=== PATIENT | female | born 1935 | race Caucasian/White ===

== ENCOUNTER 2018-03-10 20:06 | Inpatient (IN) | payer MEDICARE, BC ==
[2018-03-10] MEDS ORDERED: ONDANSETRON 4 MG/2 ML VIAL IVP STA (20:49)
[2018-03-10] MEDS ORDERED: SODIUM CHLORIDE 0.9% 1,000 ML IV STA (20:49)
--- NOTE | 2018-03-10 20:52 | ED ---
Nausea/Vomiting/Diarrhea HPI - General Chief complaint: Nausea/Vomiting/Diarrhea Stated complaint: Vomiting Time Seen by Provider: 03/10/18 20:18 Source: patient, family Mode of arrival: wheelchair Limitations: no limitations - History of Present Illness Initial comments: Patient is an 82-year-old female presenting for dysuria and fever. The patient states that for the last couple days, she had been having dysuria and fever and she went and saw her ECP who started her on Macrobid yesterday. She was able to take 2 doses but vomited after one of doses. She denies any significant abdominal pain as well as chest pain or shortness of breath but they decided to come in after she was so fatigued that she could not get off the couch. - Related Data Home Medications Medication Instructions Recorded Confirmed Metoprolol Tartrate [Lopressor] 50 mg PO BID 10/03/13 05/05/17 Omeprazole [PriLOSEC] 40 mg PO AC-BRKFST 10/03/13 05/05/17 amLODIPine [Norvasc] 10 mg PO DAILY 10/03/13 05/05/17 Atorvastatin [Lipitor] 10 mg PO HS 11/20/14 05/05/17 Melatonin 5 mg PO HS 11/20/14 05/05/17 Timolol 0.5% Ophth Soln [Timoptic] 1 drop BOTH EYES BID 11/20/14 05/05/17 Vit C/E/Zn/Coppr/Lutein/Zeaxan 2 tab PO DAILY 11/20/14 05/05/17 [Preservision Areds 2 Softgel] Omalizumab [Xolair] 150 mg SQ QMONTH 06/11/15 05/05/17 Loratadine [Claritin] 10 mg PO DAILY 08/06/15 05/05/17 Acetaminophen/Diphenhydramine 2 tab PO HS 01/07/16 05/05/17 [Tylenol PM 500-25mg] Allergies Allergy/AdvReac Type Severity Reaction Status Date / Time LOKESH Inhibitors Allergy Rash/Hives Verified 03/10/18 20:16 aspirin Allergy Rash/Hives Verified 03/10/18 20:16 NSAIDS (Non-Steroidal Allergy Rash/Hives Verified 03/10/18 20:16 Anti-Inflamma Sulfa (Sulfonamide Allergy Unknown Verified 03/10/18 20:16 Antibiotics) Childhood Review of Systems ROS Statement: Those systems with pertinent positive or pertinent negative responses have been documented in the HPI. Constitutional: Positive for chills, fatigue and fever. HENT: Negative for congestion. Respiratory: Negative for chest tightness, shortness of breath and wheezing. Negative for cough Cardiovascular: Negative for chest pain and palpitations. Gastrointestinal: Negative for abdominal pain. Negative for abdominal distention , diarrhea, nausea and vomiting. Genitourinary: Positive for dysuria. Musculoskeletal: Negative for back pain, neck pain and neck stiffness. Skin: Negative for color change. Neurological: Negative for dizziness, speech difficulty, weakness and light- headedness. Psychiatric/Behavioral: Negative for agitation and confusion. Negative for anxiety ROS Other: All systems not noted in ROS Statement are negative. Past Medical History Past Medical History: Eye Disorder, GERD/Reflux, Hypertension Additional Past Medical History / Comment(s): MACULAR,GLAUCOMA, UTI 03/09/18 History of Any Multi-Drug Resistant Organisms: None Reported Past Surgical History: Joint Replacement Additional Past Surgical History / Comment(s): TENDON RELEASE RIGHT HAND, OOPHORECTOMY, LEFT TOTAL KNEE, Past Anesthesia/Blood Transfusion Reactions: No Reported Reaction Past Psychological History: No Psychological Hx Reported Smoking Status: Never smoker Past Alcohol Use History: None Reported Past Drug Use History: None Reported - Past Family History Mother Family Medical History: Cancer Additional Family Medical History / Comment(s): COLON CANCER General Exam - General Exam Comments Initial Comments: Constitutional: Pt is oriented to person, place, and time. Pt appears well- developed and well-nourished. No distress. HENT: Head: Normocephalic and atraumatic. Eyes: EOM are normal. Neck: Normal range of motion. Neck supple. Cardiovascular: Normal rate, regular rhythm, S1 normal, S2 normal and normal heart sounds. Exam reveals no gallop and no friction rub. No murmur heard. Pulmonary/Chest: Effort normal and breath sounds normal. No tachypnea and no bradypnea. No respiratory distress. No wheezes or rales noted. Abdominal: Soft. Bowel sounds are normal. Pt exhibits no shifting dullness, no distension, no pulsatile liver, no fluid wave, no abdominal bruit and no ascites. There is no tenderness. There is no rigidity, no rebound, no guarding, no tenderness at McBurney's point and negative Jimenes's sign. Musculoskeletal: Normal range of motion. Neurological: Pt is alert and oriented to person, place, and time. No cranial nerve deficit. Skin: Skin is warm and dry. No rash noted. Pt is not diaphoretic. No erythema. No pallor. Psychiatric: Pt has a normal mood and affect. Pt behavior is normal. Thought content normal. Limitations: no limitations Course Vital Signs 03/10/18 03/10/18 20:12 20:29 Temperature 99 F 100.6 F H Pulse Rate 98 Respiratory 20 Rate Blood Pressure 131/77 O2 Sat by Pulse 99 Oximetry Medical Decision Making - Medical Decision Making Laboratory studies showed that there was leukocytosis of 13.9 and lactic acid was elevated at 3.7. There is no elevation in troponin and EKG showed no findings concerning of ACS. However, there is severe concern about letting the patient home and it is thought that she is not a good candidate for outpatient treatment. Urinalysis was obtained and showed continued evidence of urinary tract infection and therefore she was given Rocephin.. Patient was also given fluids but 30 mL per KG bolus was not administered as the patient had an elevated BNP of 1800.Explained all labs and diagnostic test results and that we will admit patient to hospital. Pt is agreeable to plan and case has been discussed with mid-level provider, Constantin,and they agree to accept the pt. - Lab Data Result diagrams: 03/10/18 20:35 03/10/18 20:35 Lab Results 03/10/18 03/10/18 03/10/18 Range/Units 20:35 20:35 20:35 WBC (3.8-10.6) k/uL RBC (3.80-5.40) m/uL Hgb (11.4-16.0) gm/dL Hct (34.0-46.0) % MCV (80.0-100.0) fL MCH (25.0-35.0) pg MCHC (31.0-37.0) g/dL RDW (11.5-15.5) % Plt Count (150-450) k/uL Neutrophils % % Lymphocytes % % Monocytes % % Eosinophils % % Basophils % % Neutrophils # (1.3-7.7) k/uL Lymphocytes # (1.0-4.8) k/uL Monocytes # (0-1.0) k/uL Eosinophils # (0-0.7) k/uL Basophils # (0-0.2) k/uL Sodium 139 (137-145) mmol/L Potassium 3.5 (3.5-5.1) mmol/L Chloride 101 (98-107) mmol/L Carbon Dioxide 23 (22-30) mmol/L Anion Gap 15 mmol/L BUN 19 H (7-17) mg/dL Creatinine 0.81 (0.52-1.04) mg/dL Est GFR (CKD-EPI)AfAm 78 (>60 ml/min/1.73 sqM) Est GFR (CKD-EPI)NonAf 67 (>60 ml/min/1.73 sqM) Glucose 168 H (74-99) mg/dL Plasma Lactic Acid [place] 3.7 H* (0.7-2.0) mmol/L Calcium 9.6 (8.4-10.2) mg/dL Magnesium 1.6 (1.6-2.3) mg/dL Total Bilirubin 1.4 H (0.2-1.3) mg/dL AST 43 H (14-36) U/L ALT 28 (9-52) U/L Alkaline Phosphatase 162 H (38-126) U/L NT-Pro-B Natriuret Pep 1800 pg/mL Total Protein 8.0 (6.3-8.2) g/dL Albumin 4.5 (3.5-5.0) g/dL Lipase 25 (23-300) U/L Urine Color Urine Appearance (Clear) Urine pH (5.0-8.0) Ur Specific [place] (1.001-1.035) Urine Protein (Negative) Urine Glucose (UA) (Negative) Urine Ketones (Negative) Urine Blood (Negative) Urine Nitrite (Negative) Urine Bilirubin (Negative) Urine Urobilinogen (<2.0) mg/dL Ur Leukocyte Esterase (Negative) Urine RBC (0-5) /hpf Urine WBC (0-5) /hpf Ur Squamous Epith Cells (0-4) /hpf Urine Bacteria (None) /hpf Hyaline Casts (0-2) /lpf Urine Mucus (None) /hpf 03/10/18 03/10/18 Range/Units 20:35 21:35 WBC 13.9 H (3.8-10.6) k/uL RBC 5.02 (3.80-5.40) m/uL Hgb 15.2 (11.4-16.0) gm/dL Hct 45.7 (34.0-46.0) % MCV 90.9 (80.0-100.0) fL MCH 30.2 (25.0-35.0) pg MCHC 33.2 (31.0-37.0) g/dL RDW 13.8 (11.5-15.5) % Plt Count 243 (150-450) k/uL Neutrophils % 90 % Lymphocytes % 5 % Monocytes % 4 % Eosinophils % 0 % Basophils % 0 % Neutrophils # 12.5 H (1.3-7.7) k/uL Lymphocytes # 0.8 L (1.0-4.8) k/uL Monocytes # 0.5 (0-1.0) k/uL Eosinophils # 0.0 (0-0.7) k/uL Basophils # 0.0 (0-0.2) k/uL Sodium (137-145) mmol/L Potassium (3.5-5.1) mmol/L Chloride (98-107) mmol/L Carbon Dioxide (22-30) mmol/L Anion Gap mmol/L BUN (7-17) mg/dL Creatinine (0.52-1.04) mg/dL Est GFR (CKD-EPI)AfAm (>60 ml/min/1.73 sqM) Est GFR (CKD-EPI)NonAf (>60 ml/min/1.73 sqM) Glucose (74-99) mg/dL Plasma Lactic Acid [place] (0.7-2.0) mmol/L Calcium (8.4-10.2) mg/dL Magnesium (1.6-2.3) mg/dL Total Bilirubin (0.2-1.3) mg/dL AST (14-36) U/L ALT (9-52) U/L Alkaline Phosphatase (38-126) U/L NT-Pro-B Natriuret Pep pg/mL Total Protein (6.3-8.2) g/dL Albumin (3.5-5.0) g/dL Lipase (23-300) U/L Urine Color Yellow Urine Appearance Cloudy H (Clear) Urine pH 5.5 (5.0-8.0) Ur Specific [place] 1.014 (1.001-1.035) Urine Protein 1+ H (Negative) Urine Glucose (UA) Negative (Negative) Urine Ketones Trace H (Negative) Urine Blood Small H (Negative) Urine Nitrite Negative (Negative) Urine Bilirubin Negative (Negative) Urine Urobilinogen <2.0 (<2.0) mg/dL Ur Leukocyte Esterase Moderate H (Negative) Urine RBC 5 (0-5) /hpf Urine WBC 37 H (0-5) /hpf Ur Squamous Epith Cells 2 (0-4) /hpf Urine Bacteria Rare H (None) /hpf Hyaline Casts 13 H (0-2) /lpf Urine Mucus Few H (None) /hpf Disposition Clinical Impression: Sepsis, UTI (urinary tract infection) Disposition: ADMITTED IP TO THIS [facility] Condition: Fair Referrals: Yanelis Díaz MD [Primary Care Provider] - 1-2 days Decision to Admit Reason: Admit from EC Decision Date: 03/10/18 Decision Time: 22:36
[2018-03-10 21:15] LABS: Basophils % (A) 0 %; Eosinophils % (A) 0 %; HCT 45.7 % (34.0-46.0); HGB 15.2 gm/dL (11.4-16.0); Lymphocytes # (A) 0.8 k/uL (1.0-4.8); Lymphocytes % (A) 5 %; MCH 30.2 pg (25.0-35.0); MCHC 33.2 g/dL (31.0-37.0); MCV 90.9 fL (80.0-100.0); Mean Platelet Volume 7.8; Monocytes # (A) 0.5 k/uL (0-1.0); Monocytes % (A) 4 %; Neutrophils # (A) 12.5 k/uL (1.3-7.7); Neutrophils % (A) 90 %; Platelet Count 243 k/uL (150-450); RBC 5.02 m/uL (3.80-5.40); RDW 13.8 % (11.5-15.5); WBC 13.9 k/uL (3.8-10.6)
[2018-03-10 21:24] LABS: Albumin 4.5 g/dL (3.5-5.0); Calcium 9.6 mg/dL (8.4-10.2); Magnesium 1.6 mg/dL (1.6-2.3); Potassium 3.5 mmol/L (3.5-5.1); Total Bilirubin 1.4 mg/dL (0.2-1.3)
[2018-03-10] MEDS ORDERED: ACETAMINOPHEN TAB 500 MG TAB PO STA (22:21)
[2018-03-10 22:23] LABS: Appearance,Urine Cloudy (Clear); Bacteria,Urine Rare /hpf; Bilirubin,Urine Negative (Negative); Blood,Urine Small (Negative); Color,Urine Yellow; Glucose,Urine (UA) Negative (Negative); Hyaline Casts,Urine 13 /lpf (0-2); Ketones,Urine Trace (Negative); Leukocyte Esterase,Urine Moderate (Negative); Mucus,Urine Few /hpf; Nitrite,Urine Negative (Negative); PH, Urine 5.5 (5.0-8.0); Protein,Urine 1+ (Negative); RBC,Urine 5 /hpf (0-5); Specific Gravity,Urine 1.014 (1.001-1.035); Squamous Epithelial Cell,Urine 2 /hpf (0-4); Urobilinogen,Urine <2.0 mg/dL (<2.0); WBC,Urine 37 /hpf (0-5)
[2018-03-10] MEDS ORDERED: NALOXONE 0.4 MG/ML 1 ML VIAL IV PRN (22:30)
[2018-03-10] MEDS ORDERED: ACETAMINOPHEN TAB 325 MG TAB PO PRN (22:30)
--- NOTE | 2018-03-10 22:37 | XR ---
EXAMINATION TYPE: XR chest 2V DATE OF EXAM: 03/10/2018 COMPARISON: 07/26/2010 HISTORY: Lethargy. Vomiting TECHNIQUE: Frontal and lateral views of the chest are obtained. FINDINGS: Heart is normal. Thoracic aorta is atheromatous. There is no heart failure. There is osteo penia with 20% anterior wedging of mid thoracic vertebra. There is no pleural effusion. There are sma ll linear density in the periphery left midlung. IMPRESSION: Subsegmental atelectasis in the left lung is improved compared to old exam. No heart sarah lure. Old thoracic compression fracture.
[2018-03-10 23:58] VITALS: BMI 27.0
[2018-03-11] MEDS: SODIUM CHLORIDE 0.9% 1,000 ML IV SCH (06:35)
[2018-03-11] MEDS: PANTOPRAZOLE 40 MG TABLET PO SCH (08:23)
[2018-03-11] MEDS: METOPROLOL TARTRATE 50 MG TAB PO SCH ×2 (08:23→20:38)
[2018-03-11] MEDS: TIMOLOL 0.5% OPHTH DROPS 5 ML BTL BOTH EYES SCH ×2 (08:29→20:37)
--- NOTE | 2018-03-11 16:34 | P.HPIM ---
History of Present Illness H&P Date: 03/11/18 Chief Complaint: Dysuria and fever Ms. Nuñez is an 82-year-old female with a past medical history of hypertension, GERD, hyperlipidemia coming into the hospital with a chief complaint of increased urination and burning sensation while urinating for the past couple of days. Patient also reports subjective fevers with chills. States that she went to see her primary care physician who started her on Macrobid yesterday. Patient states that she to couple of doses but threw up after that. Patient insurance that she has been having diarrhea for the past 2 weeks on and off that resolved 2 days prior to starting of her dysuria symptoms. Patient was also having generalized weakness feeling tired and not able to get off of her bed for the past day and so came into the hospital for further evaluation. Patient denies having any chest pain, cough, difficulty in breathing. No abdominal pain nausea vomiting or diarrhea. Patient denies having any headaches , neck pain, no blurring of vision. No loss of consciousness or seizure-like activity. No focal weakness reported. In the ER patient was found to be septic with the urine positive for leukocyte esterase. She has been started on ceftriaxone and admitted for further management. Review of Systems REVIEW OF SYSTEMS: CONSTITUTIONAL-patient complains of generalized weakness and fatigue PSYCH: No anxiety or depression NEURO:No c/o weakness of the extremties, No facial droop, No speech abnormalities. VASCULAR: Peripheral nervous system within the normal limits no edema HEMATOLOGIC: No history of easy bleeding and bruising . No recent infections . RESPIRATORY: No cough, No SOB, No chest discomfort. IMMUNE: No infections INTEGUMENT: no rashes OPHTHALMOLOGIC: No blurry vision and no eye discharge : As per HPI CONFERENCE SERVICE COORDINATOR: No bleeding PV CARDIAC: No chest pain , shortness of breath , paroxysmal nocturnal dyspnea MUSCULOSKELETAL : No Aches or pains in the joints or muscles. GI: No abdominal pain, Nausea or vomiting. No constipation or diarrhea. All 13 review of systems are negative except for the ones mentioned above Past Medical History Past Medical History: Eye Disorder, GERD/Reflux, Hypertension Additional Past Medical History / Comment(s): MACULAR,GLAUCOMA, UTI 03/09/18 History of Any Multi-Drug Resistant Organisms: None Reported Past Surgical History: Joint Replacement Additional Past Surgical History / Comment(s): TENDON RELEASE RIGHT HAND, OOPHORECTOMY, LEFT TOTAL KNEE, Past Anesthesia/Blood Transfusion Reactions: No Reported Reaction Past Psychological History: No Psychological Hx Reported Smoking Status: Never smoker Past Alcohol Use History: None Reported Past Drug Use History: None Reported - Past Family History Mother Family Medical History: Cancer Additional Family Medical History / Comment(s): COLON CANCER Medications and Allergies Home Medications Medication Instructions Recorded Confirmed Type Metoprolol Tartrate [Lopressor] 50 mg PO BID 10/03/13 03/11/18 History Omeprazole [PriLOSEC] 40 mg PO AC-BRKFST 10/03/13 03/11/18 History amLODIPine [Norvasc] 10 mg PO DAILY 10/03/13 03/11/18 History Atorvastatin [Lipitor] 10 mg PO HS 11/20/14 03/11/18 History Timolol 0.5% Ophth Soln [Timoptic] 1 drop BOTH EYES BID 11/20/14 03/11/18 History Vit C/E/Zn/Coppr/Lutein/Zeaxan 1 tab PO BID 11/20/14 03/11/18 History [Preservision Areds 2 Softgel] Diphenox-Atrop 2.5-0.025 mg 1 tab PO BID PRN 03/11/18 03/11/18 History [Lomotil] Nitrofurantoin Monohyd/M-Cryst 100 mg PO Q12HR 03/11/18 03/11/18 History [Macrobid] Allergies Allergy/AdvReac Type Severity Reaction Status Date / Time LOKESH Inhibitors Allergy Rash/Hives Verified 03/11/18 10:53 aspirin Allergy Rash/Hives Verified 03/11/18 10:53 NSAIDS (Non-Steroidal Allergy Rash/Hives Verified 03/11/18 10:53 Anti-Inflamma Sulfa (Sulfonamide Allergy Unknown Verified 03/11/18 10:53 Antibiotics) Childhood tree nut [Nut] Allergy Unknown Verified 03/11/18 10:53 Physical Exam Vitals: Vital Signs Temp Pulse Pulse Resp BP BP Pulse Ox 03/11/18 08:00 18 03/11/18 05:56 97.3 F L 70 16 127/70 95 03/10/18 23:43 98.7 F 79 17 148/77 94 L 03/10/18 22:39 83 18 117/56 95 03/10/18 22:28 101.6 F H 03/10/18 20:29 100.6 F H 03/10/18 20:12 99 F 98 20 131/77 99 Intake and Output 03/10/18 03/11/18 03/11/18 22:59 06:59 14:59 Other: Voiding Method Toilet Toilet # Voids 1 Weight 67.132 kg 67 kg GEN. APPEARANCE: alert, in no apparent distress HEAD EXAM: atraumatic, normocephalic, normal inspection EYE EXAM: No pallor or icterus ENT EXAM: normal exam, mucous membranes moist NECK EXAM: normal inspection. Absent: tenderness, meningismus, full ROM, lymphadenopathy RESPIRATORY EXAM: normal lung sounds bilaterally. Absent: respiratory distress , wheezes, rales, rhonchi, stridor CARDIOVASCULAR EXAM: regular rate, normal rhythm, normal heart sounds. Absent : systolic murmur, diastolic murmur, rubs, gallop, clicks GI/ABDOMINAL EXAM: Abdomen is soft. Positive for tenderness in the suprapubic area. No CVA tenderness. EXTREMITIES EXAM: normal inspection, full ROM, normal capillary refill. Absent : tenderness, pedal edema, joint swelling, calf tenderness NEUROLOGICAL EXAM: alert, oriented X3, no focal neurological deficits PSYCHIATRIC EXAM: normal affect, normal mood SKIN EXAM: warm, dry, intact, normal color. Absent: rash Results CBC & Chem 7: 03/10/18 20:35 03/10/18 20:35 Labs: Abnormal Lab Results - Last 24 Hours (Table) 03/10/18 03/10/18 03/10/18 Range/Units 20:35 20:35 20:35 WBC 13.9 H (3.8-10.6) k/uL Neutrophils # 12.5 H (1.3-7.7) k/uL Lymphocytes # 0.8 L (1.0-4.8) k/uL BUN 19 H (7-17) mg/dL Glucose 168 H (74-99) mg/dL Plasma Lactic Acid [place] 3.7 H* (0.7-2.0) mmol/L Total Bilirubin 1.4 H (0.2-1.3) mg/dL AST 43 H (14-36) U/L Alkaline Phosphatase 162 H (38-126) U/L Urine Appearance (Clear) Urine Protein (Negative) Urine Ketones (Negative) Urine Blood (Negative) Ur Leukocyte Esterase (Negative) Urine WBC (0-5) /hpf Urine Bacteria (None) /hpf Hyaline Casts (0-2) /lpf Urine Mucus (None) /hpf 03/10/18 03/11/18 Range/Units 21:35 01:19 WBC (3.8-10.6) k/uL Neutrophils # (1.3-7.7) k/uL Lymphocytes # (1.0-4.8) k/uL BUN (7-17) mg/dL Glucose (74-99) mg/dL Plasma Lactic Acid [place] 2.7 H* (0.7-2.0) mmol/L Total Bilirubin (0.2-1.3) mg/dL AST (14-36) U/L Alkaline Phosphatase (38-126) U/L Urine Appearance Cloudy H (Clear) Urine Protein 1+ H (Negative) Urine Ketones Trace H (Negative) Urine Blood Small H (Negative) Ur Leukocyte Esterase Moderate H (Negative) Urine WBC 37 H (0-5) /hpf Urine Bacteria Rare H (None) /hpf Hyaline Casts 13 H (0-2) /lpf Urine Mucus Few H (None) /hpf Microbiology - Last 24 Hours (Table) 03/10/18 21:35 Urine Culture - Preliminary Urine,Voided Thrombosis Risk Factor Assmnt - Choose All That Apply Any of the Below Risk Factors Present?: No Assessment and Plan Assessment: ASSESSMENT Sepsis secondary to UTI Hypertension Hyperlipidemia GERD Glaucoma Hypomagnesemia Plan: Continue the patient on ceftriaxone and IV fluids. Urine culture is pending currently. Patient has been resumed on her home medications. Further recommendations to follow depending on the progress of the patient.
[2018-03-11] MEDS: ATORVASTATIN 10 MG TAB PO SCH (20:38)
[2018-03-11] MEDS ORDERED: CALCIUM CARBONATE 500 MG CHEWABLE PO PRN (20:47)
[2018-03-12] MEDS: SODIUM CHLORIDE 0.9% 1,000 ML IV SCH (04:29)
[2018-03-12] MEDS: PANTOPRAZOLE 40 MG TABLET PO SCH (08:17)
[2018-03-12] MEDS: TIMOLOL 0.5% OPHTH DROPS 5 ML BTL BOTH EYES SCH ×2 (08:17→21:43)
[2018-03-12] MEDS: METOPROLOL TARTRATE 50 MG TAB PO SCH ×2 (08:17→21:44)
[2018-03-12 09:24] LABS: Basophils % (A) 0 %; Eosinophils # (A) 0.1 k/uL (0-0.7); Eosinophils % (A) 1 %; HCT 38.5 % (34.0-46.0); HGB 12.8 gm/dL (11.4-16.0); Lymphocytes # (A) 1.2 k/uL (1.0-4.8); Lymphocytes % (A) 17 %; MCH 30.8 pg (25.0-35.0); MCHC 33.3 g/dL (31.0-37.0); MCV 92.5 fL (80.0-100.0); Mean Platelet Volume 7.7; Monocytes # (A) 0.4 k/uL (0-1.0); Monocytes % (A) 6 %; Neutrophils # (A) 5.4 k/uL (1.3-7.7); Neutrophils % (A) 75 %; Platelet Count 176 k/uL (150-450); RBC 4.16 m/uL (3.80-5.40); WBC 7.2 k/uL (3.8-10.6)
[2018-03-12 09:41] LABS: Anion Gap 8 mmol/L; Blood Urea Nitrogen 13 mg/dL (7-17); Calcium 8.9 mg/dL (8.4-10.2); Carbon Dioxide 26 mmol/L (22-30); Chloride 110 mmol/L (98-107); Glucose 104 mg/dL (74-99); Potassium 3.2 mmol/L (3.5-5.1); Sodium 144 mmol/L (137-145)
[2018-03-12] MEDS ORDERED: Potassium Replacement Protocol 1 EACH MISC MISCELLANE PRN (12:02)
[2018-03-12] MEDS: POTASSIUM CHLORIDE ER 20 MEQ TAB.ER PO SCH ×4 (12:59→21:44)
--- NOTE | 2018-03-12 16:28 | P.PN ---
Subjective Progress Note Date: 03/12/18 Principal diagnosis: Sepsis Ms. Nuñez is an 82-year-old female with a past medical history of hypertension, GERD, hyperlipidemia coming into the hospital with a chief complaint of increased urination and burning sensation while urinating for the past couple of days. Patient also reports subjective fevers with chills. States that she went to see her primary care physician who started her on Macrobid yesterday. Patient states that she to couple of doses but threw up after that. Patient insurance that she has been having diarrhea for the past 2 weeks on and off that resolved 2 days prior to starting of her dysuria symptoms. Patient was also having generalized weakness feeling tired and not able to get off of her bed for the past day and so came into the hospital for further evaluation. In the ER patient was found to be septic with the urine positive for leukocyte esterase. She has been started on ceftriaxone and admitted for further management. Today patient is lying in bed appears to be in acute distress. The patient complains of generalized weakness and fatigue. She also complains of increased shortness of breath, with cough since yesterday. She still has loose bowel movements. Patient had a fever of 100.4 last night. Patient denies having any chest pain or palpitations. She denies having any nausea or vomiting and has been eating and drinking okay. Medications have been reviewed. Objective - Vital Signs Vital signs: Vital Signs Temp 98.2 F 03/12/18 15:00 Pulse 73 03/12/18 15:00 Resp 18 03/12/18 15:00 BP 162/84 03/12/18 15:00 Pulse Ox 90 L 03/12/18 15:00 Intake & Output 03/11/18 03/12/18 03/12/18 18:59 06:59 18:59 Intake Total 1200 Output Total 300 Balance 1200 -300 Intake: Oral 1200 Output: Urine 300 Other: Voiding Method Toilet Toilet Toilet Bedside Commode # Voids 2 3 2 # Bowel Movements 2 1 - Exam GEN. APPEARANCE: alert, in no apparent distress HEAD EXAM: atraumatic, normocephalic, normal inspection EYE EXAM: No pallor or icterus ENT EXAM: normal exam, mucous membranes moist NECK EXAM: normal inspection. Absent: tenderness, meningismus, full ROM, lymphadenopathy RESPIRATORY EXAM: Positive bilateral breath sounds. No crackles or wheezes. CARDIOVASCULAR EXAM: regular rate, normal rhythm, normal heart sounds. Absent : systolic murmur, diastolic murmur, rubs, gallop, clicks GI/ABDOMINAL EXAM: Abdomen is soft. Positive for tenderness in the suprapubic area. No CVA tenderness. EXTREMITIES EXAM: No peripheral edema. NEUROLOGICAL EXAM: alert, oriented X3, no focal neurological deficits PSYCHIATRIC EXAM: normal affect, normal mood SKIN EXAM: warm, dry, intact, normal color. Absent: rash - Labs CBC & Chem 7: 03/12/18 08:20 03/12/18 08:20 Labs: Abnormal Lab Results - Last 24 Hours (Table) 03/12/18 Range/Units 08:20 Potassium 3.2 L (3.5-5.1) mmol/L Chloride 110 H (98-107) mmol/L Glucose 104 H (74-99) mg/dL Microbiology - Last 24 Hours (Table) 03/10/18 21:35 Urine Culture - Final Urine,Voided 03/10/18 20:35 Blood Culture - Preliminary Blood No Growth after 24 hours Assessment and Plan Assessment: ASSESSMENT Sepsis secondary to UTI Hypertension Hyperlipidemia GERD Glaucoma Hypomagnesemia Hypokalemia Plan: Continue the patient on ceftriaxone. Her IV fluids have been discontinued. Urine culture is pending currently. Patient has been tested negative for C. diff. As the patient spiked a fever of 100.4 and is having mild difficulty in breathing with cough, will get a chest x-ray and blood cultures. Continue with DVT prophylaxis. Further recommendations to follow depending on the progress of the patient.
[2018-03-12] MEDS: ENOXAPARIN 40 MG/0.4 ML SYRINGE SQ SCH (18:21)
--- NOTE | 2018-03-12 19:21 | XR ---
EXAMINATION: XR chest 2V DATE AND TIME: 03/12/2018 6:26 PM CLINICAL INDICATION: shortness of breath TECHNIQUE: PA and lateral COMPARISON: 03/10/2018 FINDINGS: There is a fine reticular pattern of increased density throughout the lungs mildly silhouetting the p ulmonary vasculature. This is a subtle finding but new since the prior study. The lungs are otherwise clear. The pleural spaces are negative. The cardiac silhouette is not enlarged. 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 The skeletal structures and soft tissues are negative for acute findings. IMPRESSION: Mild interstitial phase pulmonary edema.
[2018-03-12] MEDS: ATORVASTATIN 10 MG TAB PO SCH (21:44)
[2018-03-13] MEDS: METOPROLOL TARTRATE 50 MG TAB PO SCH ×2 (08:09→21:35)
[2018-03-13] MEDS: ENOXAPARIN 40 MG/0.4 ML SYRINGE SQ SCH (08:09)
[2018-03-13] MEDS: PANTOPRAZOLE 40 MG TABLET PO SCH (08:09)
[2018-03-13] MEDS: TIMOLOL 0.5% OPHTH DROPS 5 ML BTL BOTH EYES SCH ×2 (08:10→21:35)
[2018-03-13 10:20] LABS: Anion Gap 9 mmol/L; Blood Urea Nitrogen 13 mg/dL (7-17); Calcium 9.3 mg/dL (8.4-10.2); Carbon Dioxide 28 mmol/L (22-30); Chloride 104 mmol/L (98-107); Glucose 109 mg/dL (74-99); Sodium 141 mmol/L (137-145)
[2018-03-13 10:31] LABS: Basophils % (A) 0 %; Eosinophils % (A) 0 %; HCT 36.3 % (34.0-46.0); HGB 12.2 gm/dL (11.4-16.0); Lymphocytes # (A) 1.6 k/uL (1.0-4.8); Lymphocytes % (A) 25 %; MCH 30.9 pg (25.0-35.0); MCHC 33.6 g/dL (31.0-37.0); Mean Platelet Volume 8.4; Monocytes # (A) 0.4 k/uL (0-1.0); Monocytes % (A) 7 %; Neutrophils # (A) 4.1 k/uL (1.3-7.7); Neutrophils % (A) 65 %; Platelet Count 194 k/uL (150-450); RBC 3.94 m/uL (3.80-5.40); WBC 6.4 k/uL (3.8-10.6)
[2018-03-13] MEDS: ATORVASTATIN 10 MG TAB PO SCH (21:35)
--- NOTE | 2018-03-13 22:19 | P.PN ---
Subjective Progress Note Date: 03/13/18 Principal diagnosis: Sepsis Ms. Nuñez is an 82-year-old female with a past medical history of hypertension, GERD, hyperlipidemia coming into the hospital with a chief complaint of increased urination and burning sensation while urinating for the past couple of days. Patient also reports subjective fevers with chills. States that she went to see her primary care physician who started her on Macrobid yesterday. Patient states that she to couple of doses but threw up after that. Patient insurance that she has been having diarrhea for the past 2 weeks on and off that resolved 2 days prior to starting of her dysuria symptoms. Patient was also having generalized weakness feeling tired and not able to get off of her bed for the past day and so came into the hospital for further evaluation. In the ER patient was found to be septic with the urine positive for leukocyte esterase. She has been started on ceftriaxone and admitted for further management. Today patient is lying in bed appears to be in acute distress. The patient complains of generalized weakness and fatigue. She also complains of increased shortness of breath, with cough since yesterday. She still has loose bowel movements. Patient had a fever of 100.4 last night. Patient denies having any chest pain or palpitations. She denies having any nausea or vomiting and has been eating and drinking okay. Medications have been reviewed. Objective - Vital Signs Vital signs: Vital Signs Temp 98 F 03/13/18 16:08 Pulse 70 03/13/18 16:08 Resp 18 03/13/18 16:08 BP 162/82 03/13/18 16:08 Pulse Ox 93 L 03/13/18 16:08 Intake & Output 03/12/18 03/13/18 03/13/18 18:59 06:59 18:59 Intake Total 300 240 Balance 300 240 Intake: Oral 300 240 Other: Voiding Method Toilet Toilet # Voids 2 1 1 # Bowel Movements 1 1 - Exam GEN. APPEARANCE: alert, in no apparent distress HEAD EXAM: atraumatic, normocephalic, normal inspection EYE EXAM: No pallor or icterus ENT EXAM: normal exam, mucous membranes moist NECK EXAM: normal inspection. Absent: tenderness, meningismus, full ROM, lymphadenopathy RESPIRATORY EXAM: Positive bilateral breath sounds. No crackles or wheezes. CARDIOVASCULAR EXAM: regular rate, normal rhythm, normal heart sounds. Absent : systolic murmur, diastolic murmur, rubs, gallop, clicks GI/ABDOMINAL EXAM: Abdomen is soft. Positive for tenderness in the suprapubic area. No CVA tenderness. EXTREMITIES EXAM: No peripheral edema. NEUROLOGICAL EXAM: alert, oriented X3, no focal neurological deficits PSYCHIATRIC EXAM: normal affect, normal mood SKIN EXAM: warm, dry, intact, normal color. Absent: rash - Labs CBC & Chem 7: 03/13/18 09:41 03/13/18 09:41 Labs: Abnormal Lab Results - Last 24 Hours (Table) 03/12/18 03/13/18 Range/Units 16:40 09:41 Potassium 3.4 L (3.5-5.1) mmol/L Glucose 109 H (74-99) mg/dL Microbiology - Last 24 Hours (Table) 03/10/18 20:35 Blood Culture - Preliminary Blood No Growth after 48 hours Assessment and Plan Assessment: ASSESSMENT Sepsis secondary to UTI Hypertension Hyperlipidemia GERD Glaucoma Hypomagnesemia Hypokalemia Plan: Continue the patient on ceftriaxone. Urine culture is pending currently. Patient has been tested negative for C. diff. Continue with DVT prophylaxis. Further recommendations based on the clinical course.
[2018-03-14 07:11] VITALS: BP 143/77; PULSE 54; RESP 18; TEMP 98.2
[2018-03-14] MEDS: TIMOLOL 0.5% OPHTH DROPS 5 ML BTL BOTH EYES SCH (08:00)
[2018-03-14] MEDS: METOPROLOL TARTRATE 50 MG TAB PO SCH (08:00)
[2018-03-14] MEDS: PANTOPRAZOLE 40 MG TABLET PO SCH (08:00)
[2018-03-14] MEDS: ENOXAPARIN 40 MG/0.4 ML SYRINGE SQ SCH (08:00)
== END 2018-03-14 14:31 | disposition home health service (06) | DRG 872 ==
LOC: EC 20:06 → 4MS4W 22:30
PROVIDERS: ADMIT Internal Medicine; ATTEND Internal Medicine
DX: A41.9 Sepsis, unspecified organism (principal); N39.0 Urinary tract infection, site not specified; E78.5 Hyperlipidemia, unspecified; E83.42 Hypomagnesemia; E87.6 Hypokalemia; H40.89 Other specified glaucoma; I10 Essential (primary) hypertension; K21.9 Gastro-esophageal reflux disease without esophagitis; Z80.0 Family history of malignant neoplasm of digestive organs; Z88.2 Allergy status to sulfonamides; Z88.8 Allergy status to other drugs, medicaments and biological substances; Z87.440 Personal history of urinary (tract) infections; Z88.6 Allergy status to analgesic agent; Z91.018 Allergy to other foods; Z96.652 Presence of left artificial knee joint; R19.7 Diarrhea, unspecified; Z90.721 Acquired absence of ovaries, unilateral; Z79.899 Other long term (current) drug therapy
CPT/HCPCS: 36415; 71046; 80048; 80053; 81001; 83605; 83690; 83735; 83880; 84132; 85025; 87040; 87086; 87324; 93005; 96361; 96374; 96375; 99285

== ENCOUNTER 2018-11-01 12:21 | Emergency (ER) | payer MEDICARE, BC ==
[2018-11-01 12:39] VITALS: RESP 18
[2018-11-01] MEDS ORDERED: SODIUM CHLORIDE 0.9% 1,000 ML IV STA (12:42)
[2018-11-01 13:43] LABS: Basophils % (A) 0 %; Eosinophils % (A) 0 %; HCT 41.7 % (34.0-46.0); HGB 13.8 gm/dL (11.4-16.0); Lymphocytes # (A) 2.6 k/uL (1.0-4.8); Lymphocytes % (A) 29 %; MCH 29.5 pg (25.0-35.0); MCHC 33.1 g/dL (31.0-37.0); Mean Platelet Volume 7.8; Monocytes # (A) 0.6 k/uL (0-1.0); Monocytes % (A) 7 %; Neutrophils # (A) 5.6 k/uL (1.3-7.7); Neutrophils % (A) 62 %; Platelet Count 259 k/uL (150-450); RBC 4.69 m/uL (3.80-5.40); RDW 14.4 % (11.5-15.5); WBC 8.9 k/uL (3.8-10.6)
[2018-11-01 13:51] LABS: Albumin 4.6 g/dL (3.5-5.0); Calcium 10.1 mg/dL (8.4-10.2); Potassium 4.1 mmol/L (3.5-5.1); Total Bilirubin 0.8 mg/dL (0.2-1.3); Total Protein 7.8 g/dL (6.3-8.2)
--- NOTE | 2018-11-01 14:10 | ED ---
General Adult HPI - General Chief complaint: Urogenital Stated complaint: UTI Time Seen by Provider: 11/01/18 12:41 Source: patient, RN notes reviewed Mode of arrival: wheelchair Limitations: no limitations - History of Present Illness Initial comments: 82-year-old female presented emergency Department with chief complaint urinary tract infection. Patient was placed on Levaquin yesterday for urinary tract infection by PCP. Patient states that associate urine tract infection she was septic. Patient is concerned along with her daughter about her health condition. Patient has no complaints of fevers, chills, nausea, vomiting, diarrhea, chest pain, shortness breath. She has no complaints of weakness. Patient does have some symptoms of dysuria. - Related Data Home Medications Medication Instructions Recorded Confirmed Omeprazole [PriLOSEC] 40 mg PO AC-BRKFST 10/03/13 03/11/18 amLODIPine [Norvasc] 10 mg PO DAILY 10/03/13 03/11/18 Atorvastatin [Lipitor] 10 mg PO HS 11/20/14 03/11/18 Timolol 0.5% Ophth Soln [Timoptic 1 drop BOTH EYES BID 11/20/14 03/11/18 0.5% Ophth Soln] Vit C/E/Zn/Coppr/Lutein/Zeaxan 1 tab PO BID 11/20/14 03/11/18 [Preservision Areds 2 Softgel] Diphenox-Atrop 2.5-0.025 mg 1 tab PO BID PRN 03/11/18 03/11/18 [Lomotil] Previous Rx's Medication Instructions Recorded Cefuroxime Axetil [Ceftin] 500 mg PO BID 4 Days #8 tab 03/14/18 Metoprolol Tartrate [Lopressor] 25 mg PO BID #0 03/14/18 Allergies Allergy/AdvReac Type Severity Reaction Status Date / Time LOKESH Inhibitors Allergy Rash/Hives Verified 11/01/18 12:39 aspirin Allergy Rash/Hives Verified 11/01/18 12:39 NSAIDS (Non-Steroidal Allergy Rash/Hives Verified 11/01/18 12:39 Anti-Inflamma Sulfa (Sulfonamide Allergy Unknown Verified 11/01/18 12:39 Antibiotics) Childhood tree nut [Nut] Allergy Unknown Verified 11/01/18 12:39 Review of Systems ROS Statement: Those systems with pertinent positive or pertinent negative responses have been documented in the HPI. ROS Other: All systems not noted in ROS Statement are negative. Past Medical History Past Medical History: Eye Disorder, GERD/Reflux, Hypertension Additional Past Medical History / Comment(s): MACULAR,GLAUCOMA, UTI 03/09/18, leaky heart valve History of Any Multi-Drug Resistant Organisms: None Reported Past Surgical History: Joint Replacement Additional Past Surgical History / Comment(s): TENDON RELEASE RIGHT HAND, OOPHORECTOMY, LEFT TOTAL KNEE, Past Anesthesia/Blood Transfusion Reactions: No Reported Reaction Past Psychological History: No Psychological Hx Reported Smoking Status: Never smoker Past Alcohol Use History: None Reported Past Drug Use History: None Reported - Past Family History Mother Family Medical History: Cancer Additional Family Medical History / Comment(s): COLON CANCER General Exam Limitations: no limitations General appearance: alert, in no apparent distress Head exam: Present: atraumatic, normocephalic, normal inspection Neck exam: Present: normal inspection. Absent: tenderness, meningismus, lymphadenopathy Respiratory exam: Present: normal lung sounds bilaterally. Absent: respiratory distress, wheezes, rales, rhonchi, stridor Cardiovascular Exam: Present: regular rate, normal rhythm, normal heart sounds. Absent: systolic murmur, diastolic murmur, rubs, gallop, clicks GI/Abdominal exam: Present: soft, normal bowel sounds. Absent: distended, tenderness, guarding, rebound, rigid Back exam: Absent: CVA tenderness (R), CVA tenderness (L) Neurological exam: Present: alert, oriented X3, CN II-XII intact Skin exam: Present: warm, dry, intact, normal color. Absent: rash Course Vital Signs 11/01/18 11/01/18 12:36 13:39 Temperature 98.1 F Pulse Rate 80 71 Respiratory 18 18 Rate Blood Pressure 140/81 138/80 O2 Sat by Pulse 96 96 Oximetry Medical Decision Making - Medical Decision Making 82-year-old female presented for a UTI, concern for sepsis. Laboratory unremarkable. Patient has minimal white cells in her urinalysis this may be improved from prior urinalysis due to antibiotics. Patient is stable for discharge vitals are unremarkable. Return parameters were discussed. - Lab Data Result diagrams: 11/01/18 13:26 11/01/18 13:26 Lab Results 11/01/18 11/01/18 11/01/18 Range/Units 13:26 13:26 13:26 WBC 8.9 (3.8-10.6) k/uL RBC 4.69 (3.80-5.40) m/uL Hgb 13.8 (11.4-16.0) gm/dL Hct 41.7 (34.0-46.0) % MCV 89.0 (80.0-100.0) fL MCH 29.5 (25.0-35.0) pg MCHC 33.1 (31.0-37.0) g/dL RDW 14.4 (11.5-15.5) % Plt Count 259 (150-450) k/uL Neutrophils % 62 % Lymphocytes % 29 % Monocytes % 7 % Eosinophils % 0 % Basophils % 0 % Neutrophils # 5.6 (1.3-7.7) k/uL Lymphocytes # 2.6 (1.0-4.8) k/uL Monocytes # 0.6 (0-1.0) k/uL Eosinophils # 0.0 (0-0.7) k/uL Basophils # 0.0 (0-0.2) k/uL Sodium 141 (137-145) mmol/L Potassium 4.1 (3.5-5.1) mmol/L Chloride 105 (98-107) mmol/L Carbon Dioxide 26 (22-30) mmol/L Anion Gap 10 mmol/L BUN 21 H (7-17) mg/dL Creatinine 0.83 (0.52-1.04) mg/dL Est GFR (CKD-EPI)AfAm 75 (>60 ml/min/1.73 sqM) Est GFR (CKD-EPI)NonAf 65 (>60 ml/min/1.73 sqM) Glucose 98 (74-99) mg/dL Plasma Lactic Acid [place] 1.2 (0.7-2.0) mmol/L Calcium 10.1 (8.4-10.2) mg/dL Total Bilirubin 0.8 (0.2-1.3) mg/dL AST 26 (14-36) U/L ALT 13 (9-52) U/L Alkaline Phosphatase 140 H (38-126) U/L Total Protein 7.8 (6.3-8.2) g/dL Albumin 4.6 (3.5-5.0) g/dL Urine Color Urine Appearance (Clear) Urine pH (5.0-8.0) Ur Specific [place] (1.001-1.035) Urine Protein (Negative) Urine Glucose (UA) (Negative) Urine Ketones (Negative) Urine Blood (Negative) Urine Nitrite (Negative) Urine Bilirubin (Negative) Urine Urobilinogen (<2.0) mg/dL Ur Leukocyte Esterase (Negative) Urine WBC (0-5) /hpf Ur Squamous Epith Cells (0-4) /hpf Urine Mucus (None) /hpf 11/01/18 Range/Units 13:44 WBC (3.8-10.6) k/uL RBC (3.80-5.40) m/uL Hgb (11.4-16.0) gm/dL Hct (34.0-46.0) % MCV (80.0-100.0) fL MCH (25.0-35.0) pg MCHC (31.0-37.0) g/dL RDW (11.5-15.5) % Plt Count (150-450) k/uL Neutrophils % % Lymphocytes % % Monocytes % % Eosinophils % % Basophils % % Neutrophils # (1.3-7.7) k/uL Lymphocytes # (1.0-4.8) k/uL Monocytes # (0-1.0) k/uL Eosinophils # (0-0.7) k/uL Basophils # (0-0.2) k/uL Sodium (137-145) mmol/L Potassium (3.5-5.1) mmol/L Chloride (98-107) mmol/L Carbon Dioxide (22-30) mmol/L Anion Gap mmol/L BUN (7-17) mg/dL Creatinine (0.52-1.04) mg/dL Est GFR (CKD-EPI)AfAm (>60 ml/min/1.73 sqM) Est GFR (CKD-EPI)NonAf (>60 ml/min/1.73 sqM) Glucose (74-99) mg/dL Plasma Lactic Acid [place] (0.7-2.0) mmol/L Calcium (8.4-10.2) mg/dL Total Bilirubin (0.2-1.3) mg/dL AST (14-36) U/L ALT (9-52) U/L Alkaline Phosphatase (38-126) U/L Total Protein (6.3-8.2) g/dL Albumin (3.5-5.0) g/dL Urine Color Light Yellow Urine Appearance Clear (Clear) Urine pH 5.0 (5.0-8.0) Ur Specific [place] 1.011 (1.001-1.035) Urine Protein Negative (Negative) Urine Glucose (UA) Negative (Negative) Urine Ketones Negative (Negative) Urine Blood Negative (Negative) Urine Nitrite Negative (Negative) Urine Bilirubin Negative (Negative) Urine Urobilinogen <2.0 (<2.0) mg/dL Ur Leukocyte Esterase Small H (Negative) Urine WBC 3 (0-5) /hpf Ur Squamous Epith Cells 1 (0-4) /hpf Urine Mucus Rare H (None) /hpf Disposition Clinical Impression: UTI (urinary tract infection) Disposition: HOME SELF-CARE Condition: Stable Instructions (If sedation given, give patient instructions): Urinary Tract Infection in Women (ED) Additional Instructions: Please return to the Emergency Department if symptoms worsen or any other concerns. Is patient prescribed a controlled substance at d/c from ED?: No Referrals: Yanelis Díaz MD [Primary Care Provider] - 1-2 days Time of Disposition: 14:41
[2018-11-01 14:13] LABS: Appearance,Urine Clear (Clear); Bilirubin,Urine Negative (Negative); Blood,Urine Negative (Negative); Color,Urine Light Yellow; Glucose,Urine (UA) Negative (Negative); Ketones,Urine Negative (Negative); Leukocyte Esterase,Urine Small (Negative); Mucus,Urine Rare /hpf; Nitrite,Urine Negative (Negative); Protein,Urine Negative (Negative); Specific Gravity,Urine 1.011 (1.001-1.035); Squamous Epithelial Cell,Urine 1 /hpf (0-4); Urobilinogen,Urine <2.0 mg/dL (<2.0)
[2018-11-01 15:09] VITALS: BP 156/87; PULSE 79; TEMP 98.2
== END 2018-11-01 15:08 | disposition home or self-care (01) ==
LOC: EC 12:21
DX: N39.0 Urinary tract infection, site not specified (principal); K21.9 Gastro-esophageal reflux disease without esophagitis; I10 Essential (primary) hypertension; Z79.899 Other long term (current) drug therapy; Z88.2 Allergy status to sulfonamides; Z88.6 Allergy status to analgesic agent; Z88.8 Allergy status to other drugs, medicaments and biological substances; Z91.018 Allergy to other foods; Z96.652 Presence of left artificial knee joint
CPT/HCPCS: 36415; 80053; 81001; 83605; 85025; 87040; 96360; 99283

== ENCOUNTER 2019-06-25 15:43 | Observation (INO) | payer MEDICARE, BC ==
[2019-06-25] MEDS ORDERED: SODIUM CHLORIDE 0.9% 500 ML 500 ML IV STA (18:25)
[2019-06-25] MEDS ORDERED: ONDANSETRON 4 MG/2 ML VIAL IVP STA (18:25)
--- NOTE | 2019-06-25 18:35 | ED ---
General Adult HPI - General Chief complaint: Nausea/Vomiting/Diarrhea Stated complaint: N/V/D, Fever Time Seen by Provider: 06/25/19 18:15 Source: patient, RN notes reviewed, old records reviewed Mode of arrival: wheelchair Limitations: no limitations - History of Present Illness Initial comments: 83-year-old female presenting with nausea vomiting and diarrhea. Patient's symptoms began this morning with nausea followed by approximately 10 episodes of vomiting. She developed diarrhea and has had several episodes of diarrhea throughout the day today. She also reports fever of 100.8. She has had no pain complaints. Her most recent episode of vomiting was just prior to evaluation. She denies chest pain or dyspnea. She's had cough and URI symptoms as well. - Related Data Home Medications Medication Instructions Recorded Confirmed Omeprazole [PriLOSEC] 40 mg PO AC-BRKFST 10/03/13 03/11/18 amLODIPine [Norvasc] 10 mg PO DAILY 10/03/13 03/11/18 Atorvastatin [Lipitor] 10 mg PO HS 11/20/14 03/11/18 Timolol 0.5% Ophth Soln [Timoptic 1 drop BOTH EYES BID 11/20/14 03/11/18 0.5% Ophth Soln] Vit C/E/Zn/Coppr/Lutein/Zeaxan 1 tab PO BID 11/20/14 03/11/18 [Preservision Areds 2 Softgel] Diphenox-Atrop 2.5-0.025 mg 1 tab PO BID PRN 03/11/18 03/11/18 [Lomotil] Previous Rx's Medication Instructions Recorded Cefuroxime Axetil [Ceftin] 500 mg PO BID 4 Days #8 tab 03/14/18 Metoprolol Tartrate [Lopressor] 25 mg PO BID #0 03/14/18 Allergies Allergy/AdvReac Type Severity Reaction Status Date / Time LOKESH Inhibitors Allergy Rash/Hives Verified 06/25/19 21:53 aspirin Allergy Rash/Hives Verified 06/25/19 21:53 NSAIDS (Non-Steroidal Allergy Rash/Hives Verified 06/25/19 21:53 Anti-Inflamma Sulfa (Sulfonamide Allergy Unknown Verified 06/25/19 21:53 Antibiotics) Childhood tree nut [Nut] Allergy Unknown Verified 06/25/19 21:53 Review of Systems ROS Statement: Those systems with pertinent positive or pertinent negative responses have been documented in the HPI. ROS Other: All systems not noted in ROS Statement are negative. Past Medical History Past Medical History: Eye Disorder, GERD/Reflux, Hypertension Additional Past Medical History / Comment(s): MACULAR,GLAUCOMA, UTI 03/09/18, leaky heart valve History of Any Multi-Drug Resistant Organisms: None Reported Past Surgical History: Joint Replacement Additional Past Surgical History / Comment(s): TENDON RELEASE RIGHT HAND, OOPHORECTOMY, LEFT TOTAL KNEE, Past Anesthesia/Blood Transfusion Reactions: No Reported Reaction Past Psychological History: No Psychological Hx Reported Smoking Status: Never smoker Past Alcohol Use History: None Reported Past Drug Use History: None Reported - Past Family History Mother Family Medical History: Cancer Additional Family Medical History / Comment(s): COLON CANCER General Exam Limitations: no limitations General appearance: alert, in no apparent distress Head exam: Present: atraumatic, normocephalic Eye exam: Present: normal appearance, PERRL ENT exam: Present: mucous membranes dry Neck exam: Present: normal inspection. Absent: tenderness, meningismus Respiratory exam: Present: normal lung sounds bilaterally. Absent: respiratory distress, wheezes Cardiovascular Exam: Present: regular rate, normal rhythm GI/Abdominal exam: Present: soft. Absent: distended, tenderness, guarding Extremities exam: Present: normal inspection, normal capillary refill. Absent: pedal edema Neurological exam: Present: alert, oriented X3, CN II-XII intact. Absent: motor sensory deficit Psychiatric exam: Present: normal affect, normal mood Skin exam: Present: warm, dry, intact. Absent: cyanosis, diaphoretic Course Vital Signs 06/25/19 16:05 Temperature 99.1 F Pulse Rate 95 Respiratory 18 Rate Blood Pressure 123/71 O2 Sat by Pulse 98 Oximetry Medical Decision Making - Medical Decision Making 83-year-old female presenting with nausea vomiting and diarrhea. Patient well- appearing with stable vitals. She has no abdominal pain. Abdominal exam: Soft, nontender nondistended. She has chest x-ray which is negative for focal pneu monia, x-ray negative of the abdomen for intraperitoneal free air or obstruction. She has mild leukocytosis at 13, stable hemoglobin, normal electrolytes. Urinalysis showing leukocyte Estrace, and bacteria, culture pending. Patient started on ceftriaxone. She will be admitted for symptom control of persistent nausea and vomiting, dehydration, UTI. Case discussed with the admitting physician Dr. Candelaria. - Lab Data Result diagrams: 06/25/19 18:45 06/25/19 18:45 Lab Results 06/25/19 06/25/19 06/25/19 Range/Units 18:45 18:45 20:58 WBC 13.0 H (3.8-10.6) k/uL RBC 4.99 (3.80-5.40) m/uL Hgb 14.8 (11.4-16.0) gm/dL Hct 45.3 (34.0-46.0) % MCV 90.6 (80.0-100.0) fL MCH 29.7 (25.0-35.0) pg MCHC 32.7 (31.0-37.0) g/dL RDW 13.8 (11.5-15.5) % Plt Count 297 (150-450) k/uL Neutrophils % 89 % Lymphocytes % 7 % Monocytes % 2 % Eosinophils % 1 % Basophils % 0 % Neutrophils # 11.6 H (1.3-7.7) k/uL Lymphocytes # 1.0 (1.0-4.8) k/uL Monocytes # 0.3 (0-1.0) k/uL Eosinophils # 0.1 (0-0.7) k/uL Basophils # 0.0 (0-0.2) k/uL Sodium 137 (137-145) mmol/L Potassium 4.3 (3.5-5.1) mmol/L Chloride 103 (98-107) mmol/L Carbon Dioxide 21 L (22-30) mmol/L Anion Gap 13 mmol/L BUN 17 (7-17) mg/dL Creatinine 0.76 (0.52-1.04) mg/dL Est GFR (CKD-EPI)AfAm 83 (>60 ml/min/1.73 sqM) Est GFR (CKD-EPI)NonAf 72 (>60 ml/min/1.73 sqM) Glucose 139 H (74-99) mg/dL Calcium 9.3 (8.4-10.2) mg/dL Total Bilirubin 1.7 H (0.2-1.3) mg/dL AST 33 (14-36) U/L ALT 13 (4-34) U/L Alkaline Phosphatase 187 H (38-126) U/L Total Protein 7.9 (6.3-8.2) g/dL Albumin 4.6 (3.5-5.0) g/dL Lipase 64 (23-300) U/L Urine Color Urine Appearance (Clear) Urine pH (5.0-8.0) Ur Specific [place] (1.001-1.035) Urine Protein (Negative) Urine Glucose (UA) (Negative) Urine Ketones (Negative) Urine Blood (Negative) Urine Nitrite (Negative) Urine Bilirubin (Negative) Urine Urobilinogen (<2.0) mg/dL Ur Leukocyte Esterase (Negative) Urine RBC (0-5) /hpf Urine WBC (0-5) /hpf Ur Squamous Epith Cells (0-4) /hpf Urine Bacteria (None) /hpf Hyaline Casts (0-2) /lpf Urine Mucus (None) /hpf Influenza Type A RNA Not Detected (Not Detectd) Influenza Type B (PCR) Not Detected (Not Detectd) 06/25/19 Range/Units 20:58 WBC (3.8-10.6) k/uL RBC (3.80-5.40) m/uL Hgb (11.4-16.0) gm/dL Hct (34.0-46.0) % MCV (80.0-100.0) fL MCH (25.0-35.0) pg MCHC (31.0-37.0) g/dL RDW (11.5-15.5) % Plt Count (150-450) k/uL Neutrophils % % Lymphocytes % % Monocytes % % Eosinophils % % Basophils % % Neutrophils # (1.3-7.7) k/uL Lymphocytes # (1.0-4.8) k/uL Monocytes # (0-1.0) k/uL Eosinophils # (0-0.7) k/uL Basophils # (0-0.2) k/uL Sodium (137-145) mmol/L Potassium (3.5-5.1) mmol/L Chloride (98-107) mmol/L Carbon Dioxide (22-30) mmol/L Anion Gap mmol/L BUN (7-17) mg/dL Creatinine (0.52-1.04) mg/dL Est GFR (CKD-EPI)AfAm (>60 ml/min/1.73 sqM) Est GFR (CKD-EPI)NonAf (>60 ml/min/1.73 sqM) Glucose (74-99) mg/dL Calcium (8.4-10.2) mg/dL Total Bilirubin (0.2-1.3) mg/dL AST (14-36) U/L ALT (4-34) U/L Alkaline Phosphatase (38-126) U/L Total Protein (6.3-8.2) g/dL Albumin (3.5-5.0) g/dL Lipase (23-300) U/L Urine Color Yellow Urine Appearance Cloudy H (Clear) Urine pH 5.5 (5.0-8.0) Ur Specific [place] 1.022 (1.001-1.035) Urine Protein 1+ H (Negative) Urine Glucose (UA) Negative (Negative) Urine Ketones Trace H (Negative) Urine Blood Negative (Negative) Urine Nitrite Negative (Negative) Urine Bilirubin Negative (Negative) Urine Urobilinogen <2.0 (<2.0) mg/dL Ur Leukocyte Esterase Large H (Negative) Urine RBC 4 (0-5) /hpf Urine WBC 19 H (0-5) /hpf Ur Squamous Epith Cells 7 H (0-4) /hpf Urine Bacteria Occasional H (None) /hpf Hyaline Casts 25 H (0-2) /lpf Urine Mucus Moderate H (None) /hpf Influenza Type A RNA (Not Detectd) Influenza Type B (PCR) (Not Detectd) Disposition Clinical Impression: UTI (urinary tract infection), Dehydration, Nausea vomiting and diarrhea Disposition: ADMITTED IP TO THIS HOSP Condition: Stable Is patient prescribed a controlled substance at d/c from ED?: No Referrals: Yanelis Díaz MD [Primary Care Provider] - 1-2 days Decision to Admit Reason: Admit from EC Decision Date: 06/25/19 Decision Time: 20:45
[2019-06-25 19:02] LABS: Basophils % (A) 0 %; Eosinophils # (A) 0.1 k/uL (0-0.7); Eosinophils % (A) 1 %; HCT 45.3 % (34.0-46.0); HGB 14.8 gm/dL (11.4-16.0); Lymphocytes % (A) 7 %; MCH 29.7 pg (25.0-35.0); MCHC 32.7 g/dL (31.0-37.0); MCV 90.6 fL (80.0-100.0); Mean Platelet Volume 8.1; Monocytes # (A) 0.3 k/uL (0-1.0); Monocytes % (A) 2 %; Neutrophils # (A) 11.6 k/uL (1.3-7.7); Neutrophils % (A) 89 %; Platelet Count 297 k/uL (150-450); RBC 4.99 m/uL (3.80-5.40); RDW 13.8 % (11.5-15.5)
[2019-06-25 19:16] LABS: Albumin 4.6 g/dL (3.5-5.0); Calcium 9.3 mg/dL (8.4-10.2); Total Bilirubin 1.7 mg/dL (0.2-1.3); Total Protein 7.9 g/dL (6.3-8.2)
--- NOTE | 2019-06-25 19:22 | XR ---
EXAMINATION TYPE: XR KUB DATE OF EXAM: 06/25/2019 COMPARISON: NONE HISTORY: Nausea and vomiting TECHNIQUE: Single view upright FINDINGS: There is no sign of intestinal obstruction or pneumoperitoneum. Fecal pattern is normal. Th ere are no pathologic calcifications over the kidneys. There is no sign of a mass. IMPRESSION: Nonacute abdomen.
--- NOTE | 2019-06-25 19:24 | XR ---
EXAMINATION TYPE: XR chest 2V DATE OF EXAM: 06/25/2019 COMPARISON: 03/12/2018 HISTORY: Chest pain TECHNIQUE: FINDINGS: Heart is normal. Lungs are clear of infiltrate. There is thoracic aorta is atheromatous. Th ere is no pleural effusion. There is osteopenia. There is anterior wedging of T8 vertebra with 20% lo ss of height. IMPRESSION: No active cardiopulmonary disease. No change.
[2019-06-25 19:31] LABS: Potassium 4.3 mmol/L (3.5-5.1)
[2019-06-25 21:31] LABS: Appearance,Urine Cloudy (Clear); Bacteria,Urine Occasional /hpf; Bilirubin,Urine Negative (Negative); Blood,Urine Negative (Negative); Color,Urine Yellow; Glucose,Urine (UA) Negative (Negative); Hyaline Casts,Urine 25 /lpf (0-2); Ketones,Urine Trace (Negative); Leukocyte Esterase,Urine Large (Negative); Mucus,Urine Moderate /hpf; Nitrite,Urine Negative (Negative); PH, Urine 5.5 (5.0-8.0); Protein,Urine 1+ (Negative); RBC,Urine 4 /hpf (0-5); Specific Gravity,Urine 1.022 (1.001-1.035); Squamous Epithelial Cell,Urine 7 /hpf (0-4); Urobilinogen,Urine <2.0 mg/dL (<2.0); WBC,Urine 19 /hpf (0-5)
[2019-06-25] MEDS ORDERED: diphenhydrAMINE 50 MG/ML 1 ML VIAL IVP STA (21:49)
[2019-06-25] MEDS ORDERED: ONDANSETRON 4 MG/2 ML VIAL IVP PRN (21:50)
[2019-06-25] MEDS ORDERED: NALOXONE 0.4 MG/ML 1 ML VIAL IV PRN (21:50)
[2019-06-25] MEDS ORDERED: ACETAMINOPHEN TAB 325 MG TAB PO PRN (21:50)
[2019-06-25] MEDS ORDERED: cefTRIAXone IN SWFI 1,000 MG/10 ML SYRINGE IVP ONE (22:00)
[2019-06-25] MEDS: SODIUM CHLORIDE 0.9% 1,000 ML IV SCH (22:07)
[2019-06-26] MEDS ORDERED: PANTOPRAZOLE 40 MG TABLET PO SCH (07:30)
[2019-06-26] MEDS: SODIUM CHLORIDE 0.9% 1,000 ML IV SCH (08:38)
[2019-06-26] MEDS ORDERED: amLODIPine 10 MG TAB PO SCH (09:00)
[2019-06-26] MEDS ORDERED: METOPROLOL TARTRATE 25 MG TAB PO SCH (09:00)
[2019-06-26] MEDS ORDERED: TIMOLOL 0.5% OPHTH DROPS 5 ML BTL BOTH EYES SCH (09:00)
[2019-06-26 09:14] VITALS: BP 140/64; PULSE 70; RESP 18; TEMP 98.2
[2019-06-26] MEDS ORDERED: diphenhydrAMINE 50 MG/ML 1 ML VIAL IVP STA (10:18)
--- NOTE | 2019-06-26 15:14 | P.DS ---
Providers Date of admission: 06/25/19 21:51 Attending physician: Nicole Candelaria Primary care physician: Bre Hsieh [facility] Course: As mentioned in HPI Patient Condition at Discharge: Stable Plan - Discharge Summary Discharge Rx Participant: No New Discharge Prescriptions: No Action amLODIPine [Norvasc] 10 mg PO DAILY Atorvastatin [Lipitor] 10 mg PO HS Vit C/E/Zn/Coppr/Lutein/Zeaxan [Preservision Areds 2 Softgel] 2 tab PO DAILY Timolol 0.5% Ophth Soln [Timoptic 0.5% Ophth Soln] 1 drop BOTH EYES BID Diphenox-Atrop 2.5-0.025 mg [Lomotil] 1 tab PO BID PRN PRN Reason: Diarrhea diphenhydrAMINE HCL [Benadryl] 25 mg PO BID Montelukast [Singulair] 10 mg PO HS Ergocalciferol [Vitamin D2] 50,000 unit PO GARCIA Omeprazole 40 mg PO DAILY Discharge Medication List amLODIPine [Norvasc] 10 mg PO DAILY 10/03/13 [History] Atorvastatin [Lipitor] 10 mg PO HS 11/20/14 [History] Timolol 0.5% Ophth Soln [Timoptic 0.5% Ophth Soln] 1 drop BOTH EYES BID 11/20/14 [History] Vit C/E/Zn/Coppr/Lutein/Zeaxan [Preservision Areds 2 Softgel] 2 tab PO DAILY 11/20/14 [History] Diphenox-Atrop 2.5-0.025 mg [Lomotil] 1 tab PO BID PRN 03/11/18 [History] Ergocalciferol [Vitamin D2] 50,000 unit PO GARCIA 06/25/19 [History] Montelukast [Singulair] 10 mg PO HS 06/25/19 [History] Omeprazole 40 mg PO DAILY 06/25/19 [History] diphenhydrAMINE HCL [Benadryl] 25 mg PO BID 06/25/19 [History] Follow up Appointment(s)/Referral(s): Yanelis Díaz MD [Primary Care Provider] - 3 Weeks Discharge Disposition: HOME SELF-CARE
--- NOTE | 2019-06-26 15:14 | P.HPIM ---
History of Present Illness 83-year-old female came in with comments of nausea vomiting diarrhea multiple episodes yesterday. Patient was having low-grade fevers. Denied any generalized body aches. Patient denied any dysuria or increased urinary frequency or superpubic pain. Patient is being admitted for right urinary tract infection but my suspicion is low for her UTI patient will be discharged patient diarrhea resolved patient has viral gastroenteritis. No and medics at necessary patient did receive Rocephin in ER yesterday. Chest x-ray did not show any significant abnormality. Discussed with the patient at length. Patient has a contaminated urine sample. Review of Systems REVIEW OF SYSTEMS: CONSTITUTIONAL: No fever, no malaise, no fatigue. HEENT: No recent visual problems or hearing problems. Denied any sore throat. CARDIOVASCULAR: No chest pain, orthopnea, PND, no palpitations, no syncope. PULMONARY: No shortness of breath, no cough, no hemoptysis. GASTROINTESTINAL: As mentioned in HPI NEUROLOGICAL: No headaches, no weakness, no numbness. HEMATOLOGICAL: Denies any bleeding or petechiae. GENITOURINARY: Denies any burning micturition, frequency, or urgency. MUSCULOSKELETAL/RHEUMATOLOGICAL: Denies any joint pain, swelling, or any muscle pain. ENDOCRINE: Denies any polyuria or polydipsia. The rest of the 14-point review of systems is negative. Past Medical History Past Medical History: Eye Disorder, GERD/Reflux, Hyperlipidemia, Hypertension, Osteoarthritis (OA), Pneumonia, Skin Disorder Additional Past Medical History / Comment(s): Leaky heart valve/murmur, UTI with sepsis, pneumonias, bronchitis, sinus issues, bilateral glaucoma, L eye macular degeneration, diverticular disease, arthritis bilateral feet toes, bilateral wrists and L shoulder, occasional mid back pain, past upper vertebral fracture, urticaria. History of Any Multi-Drug Resistant Organisms: None Reported Past Surgical History: Joint Replacement Additional Past Surgical History / Comment(s): L total knee arthroplasty, L hand tendon release, L oophorectomy d/t cyst, bilateral cataract removals/lens implants, L eye injection, colonoscopies Past Anesthesia/Blood Transfusion Reactions: No Reported Reaction Additional Past Anesthesia/Blood Transfusion Reaction / Comment(s): Pt has received blood in past without reaction. Smoking Status: Never smoker - Past Family History Father Family Medical History: No Reported History Additional Family Medical History / Comment(s): Father lived to be 85 yrs old. Mother Family Medical History: Cancer Additional Family Medical History / Comment(s): Mother of colon cancer at the age of 71 yrs. Medications and Allergies Home Medications Medication Instructions Recorded Confirmed Type amLODIPine [Norvasc] 10 mg PO DAILY 10/03/13 06/25/19 History Atorvastatin [Lipitor] 10 mg PO HS 11/20/14 06/25/19 History Timolol 0.5% Ophth Soln [Timoptic 1 drop BOTH EYES BID 11/20/14 06/25/19 History 0.5% Ophth Soln] Vit C/E/Zn/Coppr/Lutein/Zeaxan 2 tab PO DAILY 11/20/14 06/25/19 History [Preservision Areds 2 Softgel] Diphenox-Atrop 2.5-0.025 mg 1 tab PO BID PRN 03/11/18 06/25/19 History [Lomotil] Ergocalciferol [Vitamin D2] 50,000 unit PO GARCIA 06/25/19 06/25/19 History Montelukast [Singulair] 10 mg PO HS 06/25/19 06/25/19 History Omeprazole 40 mg PO DAILY 06/25/19 06/25/19 History diphenhydrAMINE HCL [Benadryl] 25 mg PO BID 06/25/19 06/25/19 History Allergies Allergy/AdvReac Type Severity Reaction Status Date / Time LOKESH Inhibitors Allergy Rash/Hives Verified 06/25/19 21:53 aspirin Allergy Rash/Hives Verified 06/25/19 21:53 NSAIDS (Non-Steroidal Allergy Rash/Hives Verified 06/25/19 21:53 Anti-Inflamma Sulfa (Sulfonamide Allergy Unknown Verified 06/25/19 21:53 Antibiotics) Childhood tree nut [Nut] Allergy Unknown Verified 06/25/19 21:53 Physical Exam Vitals: Vital Signs Temp Pulse Pulse Resp BP BP Pulse Ox 06/26/19 07:37 98.2 F 70 18 140/64 95 06/26/19 01:30 66 16 138/65 96 06/25/19 16:05 99.1 F 95 18 123/71 98 Intake and Output 06/26/19 06/26/19 06/26/19 06:59 14:59 22:59 Other: Weight 70.307 kg PHYSICAL EXAMINATION: GENERAL: The patient is alert and oriented x3, not in any acute distress. Well developed, well nourished. HEENT: Pupils are round and equally reacting to light. EOMI. No scleral icterus. No conjunctival pallor. Normocephalic, atraumatic. No pharyngeal erythema. No thyromegaly. CARDIOVASCULAR: S1 and S2 present. No murmurs, rubs, or gallops. PULMONARY: Chest is clear to auscultation, no wheezing or crackles. ABDOMEN: Soft, nontender, nondistended, normoactive bowel sounds. No palpable organomegaly. MUSCULOSKELETAL: No joint swelling or deformity. EXTREMITIES: No cyanosis, clubbing, or pedal edema. NEUROLOGICAL: Gross neurological examination did not reveal any focal deficits. SKIN: No rashes. Results CBC & Chem 7: 06/25/19 18:45 06/25/19 18:45 Labs: Abnormal Lab Results - Last 24 Hours (Table) 06/25/19 06/25/19 06/25/19 Range/Units 18:45 18:45 20:58 WBC 13.0 H (3.8-10.6) k/uL Neutrophils # 11.6 H (1.3-7.7) k/uL Carbon Dioxide 21 L (22-30) mmol/L Glucose 139 H (74-99) mg/dL Total Bilirubin 1.7 H (0.2-1.3) mg/dL Alkaline Phosphatase 187 H (38-126) U/L Urine Appearance Cloudy H (Clear) Urine Protein 1+ H (Negative) Urine Ketones Trace H (Negative) Ur Leukocyte Esterase Large H (Negative) Urine WBC 19 H (0-5) /hpf Ur Squamous Epith Cells 7 H (0-4) /hpf Urine Bacteria Occasional H (None) /hpf Hyaline Casts 25 H (0-2) /lpf Urine Mucus Moderate H (None) /hpf Microbiology - Last 24 Hours (Table) 06/25/19 20:58 Urine Culture - Preliminary Urine,Voided Thrombosis Risk Factor Assmnt - Choose All That Apply Any of the Below Risk Factors Present?: Yes Each Factor Represents 1 point: Obesity (BMI >25) Other Risk Factors: Yes Each Risk Factor Represents 3 Points: Age 75 years or older Other congenital or acquired thrombophilia - If yes, enter type in comment: No Thrombosis Risk Factor Assessment Total Risk Factor Score: 4 Thrombosis Risk Factor Assessment Level: Moderate Risk Assessment and Plan Plan: Systemic inflammatory response, diarrhea nausea vomiting: Secondary to viral gastroenteritis symptoms are self-limiting and resolved patient was asked to hydrate herself with lots of fluids at home and patient will be discharged today. -Asymptomatic bacteriuria will not require any antibiotics and medics will be discontinued. Patient did receive a dose of Rocephin. -Leukocytosis secondary to assessment #1 -Hyperlipidemia -hypertension
== END 2019-06-26 11:30 | disposition home or self-care (01) ==
LOC: EC 15:43 → 5NMEDONC 21:51
PROVIDERS: ADMIT Internal Medicine; ATTEND Internal Medicine
DX: A08.4 Viral intestinal infection, unspecified (principal); E86.0 Dehydration; R82.71 Bacteriuria; E78.5 Hyperlipidemia, unspecified; I10 Essential (primary) hypertension; H40.9 Unspecified glaucoma; K21.9 Gastro-esophageal reflux disease without esophagitis; I38 Endocarditis, valve unspecified; H35.30 Unspecified macular degeneration; K57.90 Diverticulosis of intestine, part unspecified, without perforation or abscess without bleeding; M19.072 Primary osteoarthritis, left ankle and foot; M19.071 Primary osteoarthritis, right ankle and foot; M19.032 Primary osteoarthritis, left wrist; M19.031 Primary osteoarthritis, right wrist; M19.012 Primary osteoarthritis, left shoulder; E66.9 Obesity, unspecified; Z68.28 Body mass index [BMI] 28.0-28.9, adult; Z79.899 Other long term (current) drug therapy; Z88.8 Allergy status to other drugs, medicaments and biological substances; Z88.6 Allergy status to analgesic agent; Z88.2 Allergy status to sulfonamides; Z91.018 Allergy to other foods; Z87.440 Personal history of urinary (tract) infections; Z96.652 Presence of left artificial knee joint; Z98.890 Other specified postprocedural states; Z90.79 Acquired absence of other genital organ(s); Z87.01 Personal history of pneumonia (recurrent); Z87.2 Personal history of diseases of the skin and subcutaneous tissue; Z87.09 Personal history of other diseases of the respiratory system; Z87.81 Personal history of (healed) traumatic fracture; Z98.41 Cataract extraction status, right eye; Z98.42 Cataract extraction status, left eye; Z96.1 Presence of intraocular lens; Z80.0 Family history of malignant neoplasm of digestive organs
CPT/HCPCS: 96376; 96374; 96375; 99285; 36415; 80053; 83690; 85025; 81001; 87086; 87502; 71046; 74018; G0378 ×2; J1200 ×2; J2405; J0696

== ENCOUNTER → 2020-06-02 | Outpatient (CLI) | payer MEDICARE, BC ==
[2020-06-02 12:47] LABS: HCT 44.2 % (34.0-46.0); HGB 14.8 gm/dL (11.4-16.0); MCH 29.9 pg (25.0-35.0); MCHC 33.5 g/dL (31.0-37.0); MCV 89.3 fL (80.0-100.0); Mean Platelet Volume 7.5; Platelet Count 293 k/uL (150-450); RBC 4.95 m/uL (3.80-5.40); RDW 14.2 % (11.5-15.5); WBC 9.7 k/uL (3.8-10.6)
[2020-06-02 21:39] LABS: African American GFR (CKD) 67.1 (60.0-200.0); Anion Gap 11.7 mmol/L (4.00-12.00); BUN/Creat Ratio 21.11 Ratio (12.00-20.00); Calcium 9.7 mg/dL (8.7-10.3); Carbon Dioxide 26.3 mmol/L (21.6-31.8); Non-African American GFR(CKD) 57.9 (60.0-200.0); Potassium 3.7 mmol/L (3.5-5.5)
== END | disposition home or self-care (01) ==
LOC: LABWHC1 11:38
PROVIDERS: ATTEND Nurse Practitioner
DX: I25.10 Atherosclerotic heart disease of native coronary artery without angina pectoris (principal); I10 Essential (primary) hypertension
CPT/HCPCS: 36415; 80048; 83735; 85027

== ENCOUNTER → 2020-07-20 | Outpatient (CLI) | payer MEDICARE, BC ==
--- NOTE | 2020-07-21 02:43 | MR ---
EXAMINATION TYPE: MR tmj wo con DATE OF EXAM: 07/20/2020 COMPARISON: HISTORY: Left ear hurts when chewing for 2 months. Multiplanar multiecho imaging of the temporomandibular joints was performed with the mouth in the ope n and closed position. The mandibular condyles appear intact without evidence of any significant sclerosis. The open-mouth images show mild anterior subluxation of the mandibular condyles. The patient does no t open the mouth very far. There is some thinning of the meniscus bilaterally. The open-mouth images show normal position of the meniscus. There is no subluxation of the meniscus to suggest a tear. Temp oromandibular joint spaces are fairly normal. I see no bony destructive process. IMPRESSION: Suboptimal imaging of the mandibular condyles on the open-mouth position. Images are grainy but there is sufficient visualization to show that the movement less than typical on open mouth position and t he menisci are intact. No evidence of any significant arthritic disease.
== END | disposition home or self-care (01) ==
LOC: RADMRIMAIN 14:31
PROVIDERS: ATTEND Otolaryngology
DX: H92.02 Otalgia, left ear (principal); M26.602 Left temporomandibular joint disorder, unspecified
CPT/HCPCS: 70336

== ENCOUNTER → 2022-06-01 | Outpatient (CLI) | payer MEDICARE, BC ==
[2022-06-01 19:08] LABS: African American GFR (CKD) 71.4 (60.0-200.0); Anion Gap 12.3 mmol/L (10.00-18.00); BUN/Creat Ratio 16.09 Ratio (12.00-20.00); Blood Urea Nitrogen 13.6 mg/dL (9.0-27.0); Calcium 9.4 mg/dL (8.7-10.3); Carbon Dioxide 27.9 mmol/L (20.0-27.5); Non-African American GFR(CKD) 61.6 (60.0-200.0); Potassium 3.9 mmol/L (3.5-5.5)
== END | disposition home or self-care (01) ==
LOC: LABWHC1 10:58
PROVIDERS: ATTEND Nurse Practitioner
DX: I10 Essential (primary) hypertension (principal)
CPT/HCPCS: 36415; 80048

== ENCOUNTER 2022-08-15 11:56 | Inpatient (IN) | payer MEDICARE, BC ==
[2022-08-15] MEDS ORDERED: SODIUM CHLORIDE 0.9% 500 ML 500 ML IV STA (12:58)
--- NOTE | 2022-08-15 13:02 | ED ---
General Adult HPI - General Chief complaint: Upper Respiratory Infection Stated complaint: Sore Throat Time Seen by Provider: 08/15/22 12:51 Source: patient, RN notes reviewed, old records reviewed Mode of arrival: ambulatory Limitations: no limitations - History of Present Illness Initial comments: This is a nontoxic-appearing 86-year-old female that presents to the emergency room with family complaining of sore throat for the past 2 weeks. States at that time was diagnosed with coronavirus. She states she is not feeling better and continues to have sore throat and shortness of breath. Did see Dr. Díaz last week was found to have urinary tract infection and prescribed antibiotics. Antibiotic was changed and she still has 3 days left of the new one but doesn't remember the name. She denies any fevers or chest pain. No abdominal pain. -: week(s) (2) Location: mouth (sore throat) Associated Symptoms: shortness of breath Treatments Prior to Arrival: other (antibiotics) - Related Data Home Medications Medication Instructions Recorded Confirmed Atorvastatin [Lipitor] 10 mg PO HS 11/20/14 08/15/22 Timolol 0.5% Ophth Soln [Timoptic 1 drop BOTH EYES BID 11/20/14 08/15/22 0.5% Ophth Soln] Vit C/E/Zn/Coppr/Lutein/Zeaxan 1 tab PO BID 11/20/14 08/15/22 [Preservision Areds 2 Softgel] Montelukast [Singulair] 10 mg PO DAILY 06/25/19 08/15/22 Cholecalciferol [Vitamin D3 (25 50 mcg PO DAILY 08/15/22 08/15/22 Mcg = 1000 Iu)] Clopidogrel [Plavix] 75 mg PO DAILY 08/15/22 08/15/22 Furosemide [Lasix] 20 mg PO BID 08/15/22 08/15/22 Ketoconazole 2% Cream [Nizoral 2%] 1 applic TOPICAL BID PRN 08/15/22 08/15/22 Levofloxacin [Levaquin] 250 mg PO DAILY 08/15/22 08/15/22 Loratadine 10 mg PO DAILY 08/15/22 08/15/22 Losartan [Cozaar] 50 mg PO DAILY 08/15/22 08/15/22 Metoprolol Tartrate [Lopressor] 25 mg PO DAILY 08/15/22 08/15/22 Nystatin 100,000Unit/gm Cream 1 applic TOPICAL BID PRN 08/15/22 08/15/22 [Mycostatin Cream] Omeprazole 20 mg PO DAILY 08/15/22 08/15/22 Potassium Chloride ER [K-Dur 10] 10 meq PO DAILY 08/15/22 08/15/22 dexAMETHasone [Decadron] 3 mg PO BID 08/15/22 08/15/22 Allergies Allergy/AdvReac Type Severity Reaction Status Date / Time LOKESH Inhibitors Allergy Rash/Hives Verified 08/15/22 16:23 aspirin Allergy Rash/Hives Verified 08/15/22 16:23 NSAIDS (Non-Steroidal Allergy Rash/Hives Verified 08/15/22 16:23 Anti-Inflamma Sulfa (Sulfonamide Allergy Unknown Verified 08/15/22 16:23 Antibiotics) Childhood tree nut [Nut] Allergy Unknown Verified 08/15/22 16:23 Review of Systems ROS Statement: Those systems with pertinent positive or pertinent negative responses have been documented in the HPI. ROS Other: All systems not noted in ROS Statement are negative. Past Medical History Past Medical History: Eye Disorder, GERD/Reflux, Hyperlipidemia, Hypertension, Osteoarthritis (OA), Pneumonia, Skin Disorder Additional Past Medical History / Comment(s): Leaky heart valve/murmur, UTI with sepsis, pneumonias, bronchitis, sinus issues, bilateral glaucoma, L eye macular degeneration, diverticular disease, arthritis bilateral feet toes, bilateral wrists and L shoulder, occasional mid back pain, past upper vertebral fracture, urticaria. History of Any Multi-Drug Resistant Organisms: None Reported Past Surgical History: Joint Replacement Additional Past Surgical History / Comment(s): L total knee arthroplasty, L hand tendon release, L oophorectomy d/t cyst, bilateral cataract removals/lens implants, L eye injection, colonoscopies Past Anesthesia/Blood Transfusion Reactions: No Reported Reaction Additional Past Anesthesia/Blood Transfusion Reaction / Comment(s): Pt has received blood in past without reaction. Past Psychological History: No Psychological Hx Reported Smoking Status: Never smoker Past Alcohol Use History: None Reported Past Drug Use History: None Reported - Past Family History Father Family Medical History: No Reported History Additional Family Medical History / Comment(s): Father lived to be 85 yrs old. Mother Family Medical History: Cancer Additional Family Medical History / Comment(s): Mother of colon cancer at the age of 71 yrs. General Exam Limitations: no limitations General appearance: alert, in no apparent distress Head exam: Present: atraumatic Eye exam: Present: normal appearance. Absent: scleral icterus, conjunctival injection, periorbital swelling ENT exam: Present: normal oropharynx, mucous membranes dry Expanded Mouth exam: Present: tongue normal, tongue elevation. Absent: drooling, trismus, muffled voice Throat exam: tonsillar erythema. negative: tonsillar exudate, R peritonsillar mass, L peritonsillar mass Neck exam: Present: full ROM. Absent: tenderness, meningismus, lymphadenopathy Respiratory exam: Present: normal lung sounds bilaterally. Absent: respiratory distress, accessory muscle use Cardiovascular Exam: Present: regular rate GI/Abdominal exam: Present: soft. Absent: distended, tenderness, rigid Extremities exam: Present: normal capillary refill Back exam: Absent: tenderness, CVA tenderness (R), CVA tenderness (L), rash noted Neurological exam: Present: alert, oriented X3, CN II-XII intact Psychiatric exam: Present: normal affect, normal mood Skin exam: Present: warm, dry, normal color. Absent: cyanosis, diaphoretic, pallor Course Vital Signs 08/15/22 08/15/22 08/15/22 12:09 18:13 18:33 Temperature 98.4 F 98.1 F 98.2 F Pulse Rate 71 76 Pulse Rate [ 73 Pulse Oximetery ] Respiratory 22 18 18 Rate Blood Pressure 169/82 175/89 Blood Pressure 180/94 [Left Arm] O2 Sat by Pulse 94 L 95 95 Oximetry Medical Decision Making - Medical Decision Making Patient presents to the emergency room with sore throat, nasal congestion for the past 2 weeks. Diagnosed with Covid at that time. Has been seeing her primary care Dr. Díaz who did prescribe her dexamethasone 3 mg twice a day which she has been taking for the past 5 days. She is also being treated for urinary tract infection, according to pharmacy records patient was started on Macrobid and changed to Cipro and now on Levaquin. Patient is non-toxic appearing, afebrile and vital signs are stable. Labs show leukocytosis of 23.7 with a left shift. Lactic acid 2.1. Rapid strep negative. Chest x-ray interpreted by me shows no evidence of infiltrate. Radiologist's impression COPD and chronic changes. Borderline heart size. No definite acute process. Troponin elevated at 0.037. EKG shows no ST elevation. First-degree AV block. Troponin is likely elevated due to coronavirus infection. Urinalysis was obtained shows no evidence of UTI. She continues to state that she has a sore throat and difficulty swallowing therefore CT of the soft tissue neck was performed. CT soft tissue neck performed due to patient's persistent sore throat with Covid diagnosis. States having difficulty swallowing. Impression no evidence of peritonsillar abscess. Asymmetric thickness of the left adenoid. Left upper lung [id number] pulmonary nodule concerning for malignancy recommended further workup. Atherosclerosis of the carotid bifurcations with 50% stenosis on the right. Patient will be admitted to the hospital for leukocytosis, new pulmonary nodule, covid infection. Case discussed with Dr. Rolle, patient will be admitted. Case discussed also with hospitalist and recommended pulmonary consult for Covid infections and new pulmonary mass. Patient is agreeable to be admitted. Was pt. sent in by a medical professional or institution (, PA, LAB REP, urgent care, hospital, or usp...) When possible be specific @ -No Did you speak to anyone other than the patient for history (EMS, parent, family, police, friend...)? What history was obtained from this source @ -No Did you review nursing and triage notes (agree or disagree)? Why? @ -I reviewed and agree with nursing and triage notes Were old charts reviewed (outside hosp., previous admission, EMS record, old EKG, old radiological studies, urgent care reports/EKG's, usp records)? Report findings @ -Yes previous EKG did not show first-degree AV block Differential Diagnosis (chest pain, altered mental status, abdominal pain women, abdominal pain men, vaginal bleeding, weakness, fever, dyspnea, syncope, headache, dizziness, GI bleed, back pain, seizure, CVA, palpatations, mental health, musculoskeletal)? @ -Strep pharyngitis, viral URI, retropharyngeal abscess or epiglottitis, pneumonia, Ludwigs angina, this is not an all inclusive list EKG interpreted by me (3pts min.). @ -As above X-rays interpreted by me (1pt min.). @ -Yes as above CT interpreted by me (1pt min.). @ -no U/S interpreted by me (1pt. min.). @ -None done What testing was considered but not performed or refused? (CT, X-rays, U/S, labs)? Why? @ -None What meds were considered but not given or refused? Why? @ -Antibiotics were considered however patient has been on Macrobid, Cipro and currently on Levaquin. There is no evidence of urinary tract infection or infectious process. Leukocytosis may be related to steroid use. Patient has been afebrile. Heparin was considered however patient denies any chest pain. No ST elevation on EKG. I have low concern for ACS. Currently on Plavix. Troponin likely elevated due to coronavirus infection. Did you discuss the management of the patient with other professionals (professionals i.e. , PA, LAB REP, lab, RT, psych nurse, social worker masters, mrp controller, teacher, court officer, rn case mgr)? Give summary @ -No Was smoking cessation discussed for >3mins.? @ -No Was critical care preformed (if so, how long)? @ -No Were there social determinants of health that impacted care today? How? (Homelessness, low income, unemployed, alcoholism, drug addiction, transportation, low edu. Level, literacy, decrease access to med. care, [facility], rehab)? @ -No Was there de-escalation of care discussed even if they declined (Discuss DNR or withdrawal of care, Hospice)? DNR status @ -No What co-morbidities impacted this encounter? (DM, HTN, Smoking, COPD, CAD, Cancer, CVA, ARF, Chemo, Hep., AIDS, mental health diagnosis, sleep apnea, morbid obesity)? @ -GERD, hyperlipidemia, hypertension Was patient admitted / discharged? Hospital course, mention meds given and route, prescriptions, significant lab abnormalities, going to OR and other pertinent info. @ -Admitted Undiagnosed new problem with uncertain prognosis? @ -No Drug Therapy requiring intensive monitoring for toxicity (Heparin, Nitro, Insulin, Cardizem)? @ -No Were any procedures done? @ -No Diagnosis/symptom? @ -Leukocytosis, new pulmonary mass, coronavirus infection Acute, or Chronic, or Acute on Chronic? @ -Acute Uncomplicated (without systemic symptoms) or Complicated (systemic symptoms)? @ -Complicated Side effects of treatment? @ -No Exacerbation, Progression, or Severe Exacerbation? @ -No Poses a threat to life or bodily function? How? (Chest pain, [place], [place], pneumonia, PE, COPD, DKA, ARF, appy, cholecystitis, CVA, Diverticulitis, Homicidal, Suicidal, threat to staff... and all critical care pts) @ -No - Lab Data Result diagrams: 08/15/22 13:56 08/15/22 13:56 Lab Results 08/15/22 08/15/22 08/15/22 Range/Units 13:56 13:56 13:56 WBC 23.7 H (3.8-10.6) k/uL RBC 5.24 (3.80-5.40) m/uL Hgb 15.1 (11.4-16.0) gm/dL Hct 46.6 H (34.0-46.0) % MCV 89.0 (80.0-100.0) fL MCH 28.9 (25.0-35.0) pg MCHC 32.5 (31.0-37.0) g/dL RDW 14.6 (11.5-15.5) % Plt Count 323 (150-450) k/uL MPV 7.4 Neutrophils % 79 % Lymphocytes % 14 % Monocytes % 5 % Eosinophils % 0 % Basophils % 0 % Neutrophils # 18.8 H (1.3-7.7) k/uL Lymphocytes # 3.3 (1.0-4.8) k/uL Monocytes # 1.3 H (0-1.0) k/uL Eosinophils # 0.0 (0-0.7) k/uL Basophils # 0.1 (0-0.2) k/uL Sodium 138 (137-145) mmol/L Potassium 3.9 (3.5-5.1) mmol/L Chloride 95 L (98-107) mmol/L Carbon Dioxide 38 H (22-30) mmol/L Anion Gap 5 mmol/L BUN 23 H (7-17) mg/dL Creatinine 0.70 (0.52-1.04) mg/dL Est GFR (CKD-EPI)AfAm 89 (>60 ml/min/1.73 sqM) Est GFR (CKD-EPI)NonAf 78 (>60 ml/min/1.73 sqM) Glucose 88 (74-99) mg/dL Lactic Ac Sepsis Rflx Plasma Lactic Acid [place] (0.7-2.0) mmol/L Calcium 9.1 (8.4-10.2) mg/dL Magnesium 2.1 (1.6-2.3) mg/dL Total Bilirubin 1.1 (0.2-1.3) mg/dL AST 37 H (14-36) U/L ALT 39 H (4-34) U/L Alkaline Phosphatase 139 H (38-126) U/L Troponin I (0.000-0.034) ng/mL Total Protein 7.4 (6.3-8.2) g/dL Albumin 4.3 (3.5-5.0) g/dL Urine Color Urine Appearance (Clear) Urine pH (5.0-8.0) Ur Specific [place] (1.001-1.035) Urine Protein (Negative) Urine Glucose (UA) (Negative) Urine Ketones (Negative) Urine Blood (Negative) Urine Nitrite (Negative) Urine Bilirubin (Negative) Urine Urobilinogen (<2.0) mg/dL Ur Leukocyte Esterase (Negative) Influenza Type A (PCR) Not Detected (Not Detectd) Influenza Type B (PCR) Not Detected (Not Detectd) RSV (PCR) Not Detected (Not Detectd) SARS-CoV-2 (PCR) Detected A (Not Detectd) Group A Strep (PCR) (Not Detectd) 08/15/22 08/15/22 08/15/22 Range/Units 13:56 13:56 14:34 WBC (3.8-10.6) k/uL RBC (3.80-5.40) m/uL Hgb (11.4-16.0) gm/dL Hct (34.0-46.0) % MCV (80.0-100.0) fL MCH (25.0-35.0) pg MCHC (31.0-37.0) g/dL RDW (11.5-15.5) % Plt Count (150-450) k/uL MPV Neutrophils % % Lymphocytes % % Monocytes % % Eosinophils % % Basophils % % Neutrophils # (1.3-7.7) k/uL Lymphocytes # (1.0-4.8) k/uL Monocytes # (0-1.0) k/uL Eosinophils # (0-0.7) k/uL Basophils # (0-0.2) k/uL Sodium (137-145) mmol/L Potassium (3.5-5.1) mmol/L Chloride (98-107) mmol/L Carbon Dioxide (22-30) mmol/L Anion Gap mmol/L BUN (7-17) mg/dL Creatinine (0.52-1.04) mg/dL Est GFR (CKD-EPI)AfAm (>60 ml/min/1.73 sqM) Est GFR (CKD-EPI)NonAf (>60 ml/min/1.73 sqM) Glucose (74-99) mg/dL Lactic Ac Sepsis Rflx Y Plasma Lactic Acid [place] 2.1 H* (0.7-2.0) mmol/L Calcium (8.4-10.2) mg/dL Magnesium (1.6-2.3) mg/dL Total Bilirubin (0.2-1.3) mg/dL AST (14-36) U/L ALT (4-34) U/L Alkaline Phosphatase (38-126) U/L Troponin I 0.037 H* (0.000-0.034) ng/mL Total Protein (6.3-8.2) g/dL Albumin (3.5-5.0) g/dL Urine Color Urine Appearance (Clear) Urine pH (5.0-8.0) Ur Specific [place] (1.001-1.035) Urine Protein (Negative) Urine Glucose (UA) (Negative) Urine Ketones (Negative) Urine Blood (Negative) Urine Nitrite (Negative) Urine Bilirubin (Negative) Urine Urobilinogen (<2.0) mg/dL Ur Leukocyte Esterase (Negative) Influenza Type A (PCR) (Not Detectd) Influenza Type B (PCR) (Not Detectd) RSV (PCR) (Not Detectd) SARS-CoV-2 (PCR) (Not Detectd) Group A Strep (PCR) (Not Detectd) 08/15/22 08/15/22 Range/Units 15:10 16:44 WBC (3.8-10.6) k/uL RBC (3.80-5.40) m/uL Hgb (11.4-16.0) gm/dL Hct (34.0-46.0) % MCV (80.0-100.0) fL MCH (25.0-35.0) pg MCHC (31.0-37.0) g/dL RDW (11.5-15.5) % Plt Count (150-450) k/uL MPV Neutrophils % % Lymphocytes % % Monocytes % % Eosinophils % % Basophils % % Neutrophils # (1.3-7.7) k/uL Lymphocytes # (1.0-4.8) k/uL Monocytes # (0-1.0) k/uL Eosinophils # (0-0.7) k/uL Basophils # (0-0.2) k/uL Sodium (137-145) mmol/L Potassium (3.5-5.1) mmol/L Chloride (98-107) mmol/L Carbon Dioxide (22-30) mmol/L Anion Gap mmol/L BUN (7-17) mg/dL Creatinine (0.52-1.04) mg/dL Est GFR (CKD-EPI)AfAm (>60 ml/min/1.73 sqM) Est GFR (CKD-EPI)NonAf (>60 ml/min/1.73 sqM) Glucose (74-99) mg/dL Lactic Ac Sepsis Rflx Plasma Lactic Acid [place] (0.7-2.0) mmol/L Calcium (8.4-10.2) mg/dL Magnesium (1.6-2.3) mg/dL Total Bilirubin (0.2-1.3) mg/dL AST (14-36) U/L ALT (4-34) U/L Alkaline Phosphatase (38-126) U/L Troponin I (0.000-0.034) ng/mL Total Protein (6.3-8.2) g/dL Albumin (3.5-5.0) g/dL Urine Color Colorless Urine Appearance Clear (Clear) Urine pH 6.5 (5.0-8.0) Ur Specific [place] 1.006 (1.001-1.035) Urine Protein Negative (Negative) Urine Glucose (UA) Negative (Negative) Urine Ketones Negative (Negative) Urine Blood Negative (Negative) Urine Nitrite Negative (Negative) Urine Bilirubin Negative (Negative) Urine Urobilinogen <2.0 (<2.0) mg/dL Ur Leukocyte Esterase Negative (Negative) Influenza Type A (PCR) (Not Detectd) Influenza Type B (PCR) (Not Detectd) RSV (PCR) (Not Detectd) SARS-CoV-2 (PCR) (Not Detectd) Group A Strep (PCR) NOT DETECTED (Not Detectd) Disposition Clinical Impression: COVID-19, Leukocytosis, Pharyngitis, Incidental pulmonary nodule, greater than or equal to 8mm Disposition: ADMITTED IP TO THIS HOSP Decision Date: 08/15/22 Decision Time: 16:51
[2022-08-15 14:09] LABS: Basophils # (A) 0.1 k/uL (0-0.2); Basophils % (A) 0 %; Eosinophils % (A) 0 %; HCT 46.6 % (34.0-46.0); HGB 15.1 gm/dL (11.4-16.0); Lymphocytes # (A) 3.3 k/uL (1.0-4.8); Lymphocytes % (A) 14 %; MCH 28.9 pg (25.0-35.0); MCHC 32.5 g/dL (31.0-37.0); Mean Platelet Volume 7.4; Monocytes # (A) 1.3 k/uL (0-1.0); Monocytes % (A) 5 %; Neutrophils # (A) 18.8 k/uL (1.3-7.7); Neutrophils % (A) 79 %; Platelet Count 323 k/uL (150-450); RBC 5.24 m/uL (3.80-5.40); RDW 14.6 % (11.5-15.5); WBC 23.7 k/uL (3.8-10.6)
[2022-08-15 14:21] LABS: Albumin 4.3 g/dL (3.5-5.0); Calcium 9.1 mg/dL (8.4-10.2); Magnesium 2.1 mg/dL (1.6-2.3); Potassium 3.9 mmol/L (3.5-5.1); Total Bilirubin 1.1 mg/dL (0.2-1.3); Total Protein 7.4 g/dL (6.3-8.2)
--- NOTE | 2022-08-15 14:32 | XR ---
EXAMINATION TYPE: XR chest 2V DATE OF EXAM: 08/15/2022 COMPARISON: 06/25/2019, 07/31/2019 HISTORY: 86 year-old female shortness of breath, difficulty breathing TECHNIQUE: AP and lateral views FINDINGS: Heart borderline in size. Mild hyperinflation. Interstitial prominence is unchanged. No consolidation or pleural effusion. Nodularity lateral left apex appears unchanged, likely summation artifact. IMPRESSION: COPD and chronic changes. Borderline heart size. No definite acute process.
[2022-08-15 16:16] LABS: Appearance,Urine Clear (Clear); Bilirubin,Urine Negative (Negative); Blood,Urine Negative (Negative); Color,Urine Colorless; Glucose,Urine (UA) Negative (Negative); Ketones,Urine Negative (Negative); Leukocyte Esterase,Urine Negative (Negative); Nitrite,Urine Negative (Negative); PH, Urine 6.5 (5.0-8.0); Protein,Urine Negative (Negative); Specific Gravity,Urine 1.006 (1.001-1.035); Urobilinogen,Urine <2.0 mg/dL (<2.0)
--- NOTE | 2022-08-15 17:22 | CT ---
EXAMINATION TYPE: CT soft tissue neck w con CT DLP: 229.4 mGycm, Automated exposure control for dose reduction was used. DATE OF EXAM: 08/15/2022 5:03 PM COMPARISON: CT 08/21/2013. CLINICAL INDICATION:Female, 86 years old with history of sore throat, Sore throat, Covid + TECHNIQUE: Standard enhanced CT of the neck. Axial sections with coronal and sagittal reformats were obtained. Contrast used:100 mL of Isovue 300 with IV Contrast, Oral contrast used: none. FINDINGS: Brain: Visualized portions are grossly unremarkable. Orbits: Unremarkable Sinuses mild paranasal sinus disease. Spaces of the neck: Asymmetric fullness to the left adenoid. Musculoskeletal: No acute osseous pathology. Lymph nodes: Multiple nonenlarged lymph nodes are seen along both anterior chains of the neck. Vascular structures: Visualized major arteries are patent without evidence of aneurysm. As a 4 vessel aortic arch. The aortic vessels are patent. Visualized portions of the vertebral arteries and common carotid arteries are patent. Calcified plaque at the bifurcation of the common carotid arteries with at least 50% stenosis on the right and 25% stenosis on the left. Thoracic Inlet/airway: Airway is patent. Left upper lung spiculated 10 x 10 mm pulmonary nodule. Soft tissues/Thyroid: Thyroid and remainder of the soft tissues are unremarkable. IMPRESSION 1. No evidence for peritonsillar abscess. 2. Asymmetric thickness of the left adenoid. Direct visualization recommended. 3. Left upper lung pulmonary nodule concerning for malignancy. Further workup recommended. 4. Atherosclerosis of the carotid bifurcations with at least 50% stenosis on the right.
[2022-08-15] MEDS ORDERED: ACETAMINOPHEN TAB 325 MG TAB PO PRN (17:40)
[2022-08-15] MEDS ORDERED: NALOXONE 0.4 MG/ML 1 ML VIAL IV PRN (17:40)
[2022-08-15] MEDS ORDERED: NYSTATIN 100,000UNIT/GM CREAM 30 GM TUBE TOPICAL PRN (19:54)
[2022-08-15] MEDS ORDERED: CLOTRIMAZOLE 1% CREAM 30 GM TUBE TOPICAL PRN (19:54)
[2022-08-15] MEDS ORDERED: LOSARTAN 25 MG TAB PO STA (20:01)
[2022-08-15] MEDS: dexAMETHasone 2 MG TAB PO SCH (20:26)
[2022-08-15] MEDS: ATORVASTATIN 10 MG TAB PO SCH (20:26)
[2022-08-15] MEDS: FUROSEMIDE 20 MG TAB PO SCH (20:26)
[2022-08-15] MEDS: TIMOLOL 0.5% OPHTH DROPS 5 ML BTL BOTH EYES SCH (22:12)
[2022-08-15] MEDS: VIT A,C & E-LUTEIN-MINERALS 1 EACH TAB PO SCH (22:12)
[2022-08-15] MEDS: MAG HYDROX/AL HYDROX/SIMETH 30 ML, diphenhydrAMINE ELIXIR 75 MG, LIDOCAINE VISCOUS 2% 3... PO SCH ×3 (22:12)
[2022-08-16] MEDS: PANTOPRAZOLE 40 MG TABLET PO SCH (06:43)
[2022-08-16] MEDS: TIMOLOL 0.5% OPHTH DROPS 5 ML BTL BOTH EYES SCH ×2 (08:46→21:30)
[2022-08-16] MEDS: CHOLECALCIFEROL 25 MCG (1000 IU) TABLET PO SCH (08:46)
[2022-08-16] MEDS: FUROSEMIDE 20 MG TAB PO SCH ×2 (08:46→21:26)
[2022-08-16] MEDS: POTASSIUM CHLORIDE ER 10 MEQ TAB.ER.PRT PO SCH (08:46)
[2022-08-16] MEDS: LORATADINE 10 MG TAB PO SCH (08:47)
[2022-08-16] MEDS: MONTELUKAST 10 MG TAB PO SCH (08:47)
[2022-08-16] MEDS: CLOPIDOGREL 75 MG TAB PO SCH (08:47)
[2022-08-16] MEDS: LOSARTAN 50 MG TAB PO SCH (08:47)
[2022-08-16] MEDS: METOPROLOL TARTRATE 25 MG TAB PO SCH (08:48)
[2022-08-16] MEDS: ENOXAPARIN 40 MG/0.4 ML SYRINGE SQ SCH (08:49)
[2022-08-16] MEDS: VIT A,C & E-LUTEIN-MINERALS 1 EACH TAB PO SCH ×2 (08:51→21:30)
[2022-08-16] MEDS: MAG HYDROX/AL HYDROX/SIMETH 30 ML, diphenhydrAMINE ELIXIR 75 MG, LIDOCAINE VISCOUS 2% 3... PO SCH ×9 (08:52→21:31)
[2022-08-16] MEDS: dexAMETHasone 2 MG TAB PO SCH (08:57)
[2022-08-16 10:49] LABS: Basophils # (A) 0.05 X 10*3/uL (0.00-0.10); Basophils % (A) 0.3 %; Eosinophils # (A) 0 X 10*3/uL (0.04-0.35); Eosinophils % (A) 0 %; HCT 42.7 % (37.2-46.3); Immature Grans, Automated 1.2 %; Lymphocytes # (A) 1.41 X 10*3/uL (0.90-5.00); Lymphocytes % (A) 8.3 %; MCHC 32.8 g/dL (32.0-37.0); MCV 88.6 fL (80.0-97.0); Mean Platelet Volume 9.9 fL (9.5-12.2); Monocytes # (A) 0.48 X 10*3/uL (0.20-1.00); Monocytes % (A) 2.8 %; NRBC Per 100 WBC 0 /100 WBCS (0.0-0.0); Neutrophils # (A) 14.92 X 10*3/uL (1.80-7.70); Neutrophils % (A) 87.4 %; Platelet Count 281 X 10*3/uL (140-440); RBC 4.82 X 10*6/uL (4.10-5.20); RDW 15.9 % (11.5-14.5); WBC 17.07 X 10*3/uL (4.50-10.00)
--- NOTE | 2022-08-16 10:58 | P.HPIM ---
History of Present Illness This is a pleasant 86 years old female with multiple medical problems: Hypertension, hyperlipidemia, osteoarthritis, GERD Patient presents because of sore throat for about 2 weeks, her PCP is Dr. Wilson and she was treated with him for UTI about 2 weeks ago. One week ago she was started having sore throat with occasional dry coughing but no dyspnea or chest pain, also she complained from swallowing difficulty. She denies abdominal pain vomiting or diarrhea, she's been a lot but no dysuria, 2 weeks ago when she had UTI she had dysuria which is resolved now. She has some mild frontal headache but no weakness or numbness or dizziness. No smoking alcohol or illicit drugs. At baseline patient uses a walker and walks with difficulty. Presents because of sore throat or nasal congestion. Patient was diagnosed with Strunk about 2 weeks earlier. Lab showing leukocytosis at 23.7, partly because of infection and probably because patient was on steroids at home. Also showing evidence of leukocytosis. BMP is unremarkable except for mildly elevated BUN at 23, creatinine is normal 0.7. Repeat lactic acid normal at 1.7. Liver enzymes mildly elevated. Troponin mildly elevated Pronecalcitonin is 0.04 which is normal. Urine analysis no suspicious for infection. Strept group is negative EKG: normal sinus rhythm at 79 with single T-wave inversion in V2, rest of EKG showing no significant ST-T changes CT of the neck soft tissue: No tonsillar abscesses, asymmetry thickening of the left adenoid, direct visualization is recommended. Left upper lobe pulmonary nodule concerning for malignancy. Further workup was recommended. Atherosclerosis of the carotid bifurcation with at least 50% stenosis on the right Chest x-ray: COPD and chronic changes. Borderline heart size. No definite acute process Review of Systems Review of systems CONSTITUTIONAL: No fever, no malaise, no fatigue. HEENT: No recent visual problems or hearing problems. CARDIOVASCULAR: No orthopnea, PND, no palpitations, no syncope. PULMONARY: No shortness of breath, no cough, no hemoptysis. GASTROINTESTINAL: No diarrhea, no nausea, no vomiting, no abdominal pain. Normoactive bowel sounds. NEUROLOGICAL: No headaches, no weakness, no numbness. HEMATOLOGICAL: Denies any bleeding or petechiae. GENITOURINARY: Denies any burning micturition, frequency, or urgency. MUSCULOSKELETAL/RHEUMATOLOGICAL: Denies any joint pain, swelling, or any muscle pain. ENDOCRINE: Denies any polyuria or polydipsia. Past Medical History Past Medical History: Eye Disorder, GERD/Reflux, Hyperlipidemia, Hypertension, Osteoarthritis (OA), Pneumonia, Skin Disorder Additional Past Medical History / Comment(s): Leaky heart valve/murmur, UTI with sepsis, pneumonias, bronchitis, sinus issues, bilateral glaucoma, L eye macular degeneration, diverticular disease, arthritis bilateral feet toes, bilateral wrists and L shoulder, occasional mid back pain, past upper vertebral fracture, urticaria. History of Any Multi-Drug Resistant Organisms: None Reported Past Surgical History: Joint Replacement Additional Past Surgical History / Comment(s): L total knee arthroplasty, L hand tendon release, L oophorectomy d/t cyst, bilateral cataract removals/lens implants, L eye injection, colonoscopies Past Anesthesia/Blood Transfusion Reactions: No Reported Reaction Additional Past Anesthesia/Blood Transfusion Reaction / Comment(s): Pt has received blood in past without reaction. Past Psychological History: No Psychological Hx Reported Smoking Status: Never smoker Past Alcohol Use History: None Reported Past Drug Use History: None Reported - Past Family History Father Family Medical History: No Reported History Additional Family Medical History / Comment(s): Father lived to be 85 yrs old. Mother Family Medical History: Cancer Additional Family Medical History / Comment(s): Mother of colon cancer at the age of 71 yrs. Medications and Allergies Home Medications Medication Instructions Recorded Confirmed Type Atorvastatin [Lipitor] 10 mg PO HS 11/20/14 08/15/22 History Timolol 0.5% Ophth Soln [Timoptic 1 drop BOTH EYES BID 11/20/14 08/15/22 History 0.5% Ophth Soln] Vit C/E/Zn/Coppr/Lutein/Zeaxan 1 tab PO BID 11/20/14 08/15/22 History [Preservision Areds 2 Softgel] Montelukast [Singulair] 10 mg PO DAILY 06/25/19 08/15/22 History Cholecalciferol [Vitamin D3 (25 50 mcg PO DAILY 08/15/22 08/15/22 History Mcg = 1000 Iu)] Clopidogrel [Plavix] 75 mg PO DAILY 08/15/22 08/15/22 History Furosemide [Lasix] 20 mg PO BID 08/15/22 08/15/22 History Ketoconazole 2% Cream [Nizoral 2%] 1 applic TOPICAL BID PRN 08/15/22 08/15/22 History Levofloxacin [Levaquin] 250 mg PO DAILY 08/15/22 08/15/22 History Loratadine 10 mg PO DAILY 08/15/22 08/15/22 History Losartan [Cozaar] 50 mg PO DAILY 08/15/22 08/15/22 History Metoprolol Tartrate [Lopressor] 25 mg PO DAILY 08/15/22 08/15/22 History Nystatin 100,000Unit/gm Cream 1 applic TOPICAL BID PRN 08/15/22 08/15/22 History [Mycostatin Cream] Omeprazole 20 mg PO DAILY 08/15/22 08/15/22 History Potassium Chloride ER [K-Dur 10] 10 meq PO DAILY 08/15/22 08/15/22 History dexAMETHasone [Decadron] 3 mg PO BID 08/15/22 08/15/22 History Allergies Allergy/AdvReac Type Severity Reaction Status Date / Time LOKESH Inhibitors Allergy Rash/Hives Verified 08/15/22 16:23 aspirin Allergy Rash/Hives Verified 08/15/22 16:23 NSAIDS (Non-Steroidal Allergy Rash/Hives Verified 08/15/22 16:23 Anti-Inflamma Sulfa (Sulfonamide Allergy Unknown Verified 08/15/22 16:23 Antibiotics) Childhood tree nut [Nut] Allergy Unknown Verified 08/15/22 16:23 Physical Exam Vitals: Vital Signs Temp Pulse Pulse Resp BP BP Pulse Ox 08/16/22 07:23 98.2 F 70 16 138/84 94 L 08/16/22 02:00 97.8 F 72 17 126/75 96 08/15/22 20:20 97.8 F 85 17 190/100 96 08/15/22 18:33 98.2 F 73 18 180/94 95 08/15/22 18:13 98.1 F 76 18 175/89 95 08/15/22 12:09 98.4 F 71 22 169/82 94 L Intake and Output 08/15/22 08/16/22 08/16/22 22:59 06:59 14:59 Other: Voiding Method Toilet Toilet Diaper Diaper Incontinent Incontinent # Voids 2 Weight 69.853 kg GENERAL: The patient is alert and oriented x3, not in any acute distress. Well developed, well nourished. HEENT: Pupils are round and equally reacting to light. EOMI. No scleral icterus. No conjunctival pallor. Normocephalic, atraumatic. No pharyngeal erythema. No thyromegaly. CARDIOVASCULAR: S1 and S2 present. No murmurs, rubs, or gallops. PULMONARY: Chest is clear to auscultation, no wheezing or crackles. ABDOMEN: Soft, nontender, nondistended, normoactive bowel sounds. No palpable organomegaly. MUSCULOSKELETAL: No joint swelling or deformity. EXTREMITIES: No cyanosis, clubbing, or pedal edema. NEUROLOGICAL: Gross neurological examination did not reveal any focal deficits. SKIN: No rashes. no petechiae. Results CBC & Chem 7: 08/16/22 06:51 08/15/22 13:56 Labs: Abnormal Lab Results - Last 24 Hours (Table) 08/15/22 08/15/22 08/15/22 Range/Units 13:56 13:56 13:56 WBC 23.7 H (3.8-10.6) k/uL Hct 46.6 H (34.0-46.0) % Neutrophils # 18.8 H (1.3-7.7) k/uL Monocytes # 1.3 H (0-1.0) k/uL Chloride 95 L (98-107) mmol/L Carbon Dioxide 38 H (22-30) mmol/L BUN 23 H (7-17) mg/dL Plasma Lactic Acid [place]ari[place] (0.7-2.0) mmol/L AST 37 H (14-36) U/L ALT 39 H (4-34) U/L Alkaline Phosphatase 139 H (38-126) U/L Troponin I (0.000-0.034) ng/mL SARS-CoV-2 (PCR) Detected A (Not Detectd) 08/15/22 08/15/22 Range/Units 13:56 13:56 WBC (3.8-10.6) k/uL Hct (34.0-46.0) % Neutrophils # (1.3-7.7) k/uL Monocytes # (0-1.0) k/uL Chloride (98-107) mmol/L Carbon Dioxide (22-30) mmol/L BUN (7-17) mg/dL Plasma Lactic Acid [place] 2.1 H* (0.7-2.0) mmol/L AST (14-36) U/L ALT (4-34) U/L Alkaline Phosphatase (38-126) U/L Troponin I 0.037 H* (0.000-0.034) ng/mL SARS-CoV-2 (PCR) (Not Detectd) Thrombosis Risk Factor Assmnt - Choose All That Apply Any of the Below Risk Factors Present?: Yes Each Factor Represents 1 point: Abnormal pulmonary function (COPD) Other Risk Factors: No Thrombosis Risk Factor Assessment Total Risk Factor Score: 1 Thrombosis Risk Factor Assessment Level: Low Risk Assessment and Plan Assessment: Soreness of the throats with asymmetry thickening of the left adenoid, Acute covid Infection with no hypoxia or pneumonia. Mildly elevated troponin secondary to Covid infection Hypertension Hyperlipidemia History of breast arthritis History of GERD Plan: Continue with bronchodilator Pulmonary team consult Consult for ENT evaluation Check bladder scan continue with Plavix Swallow evaluation Labs and medication were reviewed.. Continue same treatment. Continue with symptomatic treatment. Resume home medication. Monitor labs and vitals. DVT and GI prophylaxis. Further recommendations as per clinical course of the patient DVT prophylaxis: Subcutaneous Lovenox GI Prophylaxis: Pepcid PT/OT: Pending Prognosis is guarded
[2022-08-16 12:00] LABS: African American GFR (CKD) 76.3 (60.0-200.0); Anion Gap 11.2 mmol/L (10.00-18.00); BUN/Creat Ratio 26.38 Ratio (12.00-20.00); Blood Urea Nitrogen 21.1 mg/dL (9.0-27.0); Carbon Dioxide 30.8 mmol/L (20.0-27.5); Magnesium 2.3 mg/dL (1.5-2.4); Non-African American GFR(CKD) 65.8 (60.0-200.0); Potassium 4.1 mmol/L (3.5-5.5)
--- NOTE | 2022-08-16 15:23 | P.CNPUL ---
History of Present Illness Consult date: 08/16/22 Requesting physician: Haylie Ibrahim Reason for consult: other Chief complaint: Sore throat. History of present illness: Pulmonary consult dated 08/16/2022. 86-year-old female who presented to the emergency department on August 15, complaining of sore throat. The patient states that she had a sore throat for 2 weeks. She apparently was also diagnosed as having coronavirus 2 weeks ago. She recently saw her primary care physician who diagnosed her as having a urinary tract infection, prescribed some antibiotics. Despite that, she still complains of sore throat. She might also be complaining of a bit of difficulty breathing, and some difficulty in swallowing. She had a chest x-ray that was normal. She has been fully vaccinated against coronavirus. Currently, she is on room air. The patient is not receiving any IV fluids. The chest x-ray apparently showed a very small left upper lobe nodule. I thought she should be seen by ear nose and throat medicine for her difficulty in swallowing, and her sore throat. White count 17.07, hemoglobin 14, hematocrit 42.7, and platelet count 281,000. Sodium 140, potassium 4.1, chlorides 98, CO2 31, anion gap 11, BUN 21, and creatinine 0.8. Lactic acid was normal. Urine was negative. A strep screen was negative. The chest x-ray was normal. A computed tomography scan of the neck, revealed no evidence of peritonsillar abscess. There is some asymmetric thickness of the left adenoid. There is a left upper lung pulmonary nodule. The rest of the evaluation was unremarkable. Review of Systems REVIEW OF SYSTEMS: CONSTITUTIONAL: [Negative.] NEUROLOGIC: [ Negative.] HEENT: Severe sore throat for 2 weeks. CARDIAC: [Negative.] PULMONARY: Minimal shortness of breath. GI: Difficulty swallowing. : [Negative.] RHEUMATOLOGIC: [ Negative.] IMMUNOLOGIC: [ Negative.] ENDOCRINE: [Negative. ] DERMATOLOGIC: [Negative.] Past Medical History Past Medical History: Eye Disorder, GERD/Reflux, Hyperlipidemia, Hypertension, Osteoarthritis (OA), Pneumonia, Skin Disorder Additional Past Medical History / Comment(s): Leaky heart valve/murmur, UTI with sepsis, pneumonias, bronchitis, sinus issues, bilateral glaucoma, L eye macular degeneration, diverticular disease, arthritis bilateral feet toes, bilateral wrists and L shoulder, occasional mid back pain, past upper vertebral fracture, urticaria. History of Any Multi-Drug Resistant Organisms: None Reported Past Surgical History: Joint Replacement Additional Past Surgical History / Comment(s): L total knee arthroplasty, L hand tendon release, L oophorectomy d/t cyst, bilateral cataract removals/lens implants, L eye injection, colonoscopies Past Anesthesia/Blood Transfusion Reactions: No Reported Reaction Additional Past Anesthesia/Blood Transfusion Reaction / Comment(s): Pt has received blood in past without reaction. Past Psychological History: No Psychological Hx Reported Smoking Status: Never smoker Past Alcohol Use History: None Reported Past Drug Use History: None Reported - Past Family History Father Family Medical History: No Reported History Additional Family Medical History / Comment(s): Father lived to be 85 yrs old. Mother Family Medical History: Cancer Additional Family Medical History / Comment(s): Mother of colon cancer at the age of 71 yrs. Medications and Allergies Home Medications Medication Instructions Recorded Confirmed Type Atorvastatin [Lipitor] 10 mg PO HS 11/20/14 08/15/22 History Timolol 0.5% Ophth Soln [Timoptic 1 drop BOTH EYES BID 11/20/14 08/15/22 History 0.5% Ophth Soln] Vit C/E/Zn/Coppr/Lutein/Zeaxan 1 tab PO BID 11/20/14 08/15/22 History [Preservision Areds 2 Softgel] Montelukast [Singulair] 10 mg PO DAILY 06/25/19 08/15/22 History Cholecalciferol [Vitamin D3 (25 50 mcg PO DAILY 08/15/22 08/15/22 History Mcg = 1000 Iu)] Clopidogrel [Plavix] 75 mg PO DAILY 08/15/22 08/15/22 History Furosemide [Lasix] 20 mg PO BID 08/15/22 08/15/22 History Ketoconazole 2% Cream [Nizoral 2%] 1 applic TOPICAL BID PRN 08/15/22 08/15/22 History Levofloxacin [Levaquin] 250 mg PO DAILY 08/15/22 08/15/22 History Loratadine 10 mg PO DAILY 08/15/22 08/15/22 History Losartan [Cozaar] 50 mg PO DAILY 08/15/22 08/15/22 History Metoprolol Tartrate [Lopressor] 25 mg PO DAILY 08/15/22 08/15/22 History Nystatin 100,000Unit/gm Cream 1 applic TOPICAL BID PRN 08/15/22 08/15/22 History [Mycostatin Cream] Omeprazole 20 mg PO DAILY 08/15/22 08/15/22 History Potassium Chloride ER [K-Dur 10] 10 meq PO DAILY 08/15/22 08/15/22 History dexAMETHasone [Decadron] 3 mg PO BID 08/15/22 08/15/22 History Allergies Allergy/AdvReac Type Severity Reaction Status Date / Time LOKESH Inhibitors Allergy Rash/Hives Verified 08/15/22 16:23 aspirin Allergy Rash/Hives Verified 08/15/22 16:23 NSAIDS (Non-Steroidal Allergy Rash/Hives Verified 08/15/22 16:23 Anti-Inflamma Sulfa (Sulfonamide Allergy Unknown Verified 08/15/22 16:23 Antibiotics) Childhood tree nut [Nut] Allergy Unknown Verified 08/15/22 16:23 Physical Exam Osteopathic Statement: *. No significant issues noted on an osteopathic structural exam other than those noted in the History and Physical/Consult. Vitals: Vital Signs Temp Pulse Pulse Resp BP BP Pulse Ox 08/16/22 14:06 97.9 F 61 18 128/73 94 L 08/16/22 07:23 98.2 F 70 16 138/84 94 L 08/16/22 02:00 97.8 F 72 17 126/75 96 08/15/22 20:20 97.8 F 85 17 190/100 96 08/15/22 18:33 98.2 F 73 18 180/94 95 08/15/22 18:13 98.1 F 76 18 175/89 95 Intake and Output 08/16/22 08/16/22 08/16/22 06:59 14:59 22:59 Output Total 200 Balance -200 Output: Urine 200 Other: Voiding Method Toilet Diaper Incontinent # Voids 2 No acute distress, oriented 3. No respiratory distress. The patient's currently on room air. Saturations are 96%. HEENT examination is grossly unremarkable. Neck supple. Full range of motion. No adenopathy thyromegaly or neck vein distention. Cardiovascular examination reveals regular rhythm rate. S1-S2 normal. No S3 or S4. No discernible murmur noted. Heart rate 61 bpm. Lungs reveal clear breath sounds. Breath sounds are equal bilaterally. No adventitious lung sounds including wheezes rhonchi or crackles. Abdomen soft bowel sounds are heard. No masses or tenderness. Extremities are intact. No cyanosis clubbing or edema. Skin is without rash or lesion. Neurologic examination is brief but nonfocal. Results - Laboratory Findings CBC and BMP: 08/16/22 06:51 08/16/22 06:51 Abnormal lab findings: Abnormal Labs 08/15/22 08/15/22 08/15/22 13:56 13:56 13:56 WBC 23.7 H Hct 46.6 H RDW Immature Gran # Neutrophils # 18.8 H Monocytes # 1.3 H Eosinophils # Chloride 95 L Carbon Dioxide 38 H BUN 23 H BUN/Creatinine Ratio Glucose Plasma Lactic Acid [place] AST 37 H ALT 39 H Alkaline Phosphatase 139 H Troponin I SARS-CoV-2 (PCR) Detected A 08/15/22 08/15/22 08/16/22 13:56 13:56 06:51 WBC 17.07 H Hct RDW 15.9 H Immature Gran # 0.21 H Neutrophils # 14.92 H Monocytes # Eosinophils # 0 L Chloride Carbon Dioxide BUN BUN/Creatinine Ratio Glucose Plasma Lactic Acid [place]ari[place] 2.1 H* AST ALT Alkaline Phosphatase Troponin I 0.037 H* SARS-CoV-2 (PCR) 08/16/22 06:51 WBC Hct RDW Immature Gran # Neutrophils # Monocytes # Eosinophils # Chloride Carbon Dioxide 30.8 H BUN BUN/Creatinine Ratio 26.38 H Glucose 142 H Plasma Lactic Acid [place]ari[place] AST ALT Alkaline Phosphatase Troponin I SARS-CoV-2 (PCR) - Diagnostic Findings Chest x-ray: image reviewed Assessment and Plan Assessment: Severe sore throat/pharyngitis, lasting 2 weeks, without relief. Positive test for coronavirus infection, 2 weeks ago, without associated coronavirus pneumonia. History of gastroesophageal reflux disease. History of hypertension. History of hyperlipidemia. Previous history of UTI with sepsis. Macular degeneration. History of pneumonia. Lifelong nonsmoker. Plan: Plan 08/16/2022. The patient was placed on Rocephin by the infectious disease doctor. I don't feel the patient would benefit from Decadron at this time. It does not appear that she has coronavirus associated pneumonia. She's on room air, without any respiratory difficulty or distress. I did recommend a possible consultation with ear nose and throat medicine. They may want to do a laryngoscopy, given the findings on CT scan of the neck. We will continue to follow as needed. No additional recommendations are made. Time with Patient: Greater than 30
[2022-08-16] MEDS ORDERED: OXYMETAZOLINE 0.05% NASL SPRAY 1 SPRAY BOTTLE NASAL STA (20:13)
--- NOTE | 2022-08-16 20:50 | P.GSCN ---
History of Present Illness Consult date: 08/16/22 Reason for Consult: CAT scan findings Requesting physician: Lucio Smith History of present illness: This is a 86-year-old white female who said 2 weeks of sore throat. She was admitted on August 15. She had Covid 2 weeks ago and I understand she was recently tested positive once again. Her symptoms are primarily a sore throat no significant coughing. Denies any epistaxis or productive cough. Denies facial pain or pressure denies ear pressure. Does admit to nasal congestion but denies other sinonasal symptoms such as sneezing, lacrimation, itching etc. etc. CAT scan was performed demonstrating an abnormality in the nasopharynx and the nasopharyngeal examination is any progress for the consultation. She denies any symptoms related to this finding. Denies cervical lymphadenopathy etc. Review of Systems All systems: negative Past Medical History Past Medical History: Eye Disorder, GERD/Reflux, Hyperlipidemia, Hypertension, Osteoarthritis (OA), Pneumonia, Skin Disorder Additional Past Medical History / Comment(s): Leaky heart valve/murmur, UTI with sepsis, pneumonias, bronchitis, sinus issues, bilateral glaucoma, L eye macular degeneration, diverticular disease, arthritis bilateral feet toes, bilateral wrists and L shoulder, occasional mid back pain, past upper vertebral fracture, urticaria. History of Any Multi-Drug Resistant Organisms: None Reported Past Surgical History: Joint Replacement Additional Past Surgical History / Comment(s): L total knee arthroplasty, L hand tendon release, L oophorectomy d/t cyst, bilateral cataract removals/lens implants, L eye injection, colonoscopies Past Anesthesia/Blood Transfusion Reactions: No Reported Reaction Additional Past Anesthesia/Blood Transfusion Reaction / Comm: Pt has received blood in past without reaction. Past Psychological History: No Psychological Hx Reported Smoking Status: Never smoker Past Alcohol Use History: None Reported Past Drug Use History: None Reported - Past Family History Father Family Medical History: No Reported History Additional Family Medical History / Comment(s): Father lived to be 85 yrs old. Mother Family Medical History: Cancer Additional Family Medical History / Comment(s): Mother of colon cancer at the age of 71 yrs. Medications and Allergies Home Medications Medication Instructions Recorded Confirmed Type Atorvastatin [Lipitor] 10 mg PO HS 11/20/15 08/15/22 History Timolol 0.5% Ophth Soln [Timoptic 1 drop BOTH EYES BID 11/20/14 08/15/22 History 0.5% Ophth Soln] Vit C/E/Zn/Coppr/Lutein/Zeaxan 1 tab PO BID 11/20/14 08/15/22 History [Preservision Areds 2 Softgel] Montelukast [Singulair] 10 mg PO DAILY 06/25/19 08/15/22 History Cholecalciferol [Vitamin D3 (25 50 mcg PO DAILY 08/15/22 08/15/22 History Mcg = 1000 Iu)] Clopidogrel [Plavix] 75 mg PO DAILY 08/15/22 08/15/22 History Furosemide [Lasix] 20 mg PO BID 08/15/22 08/15/22 History Ketoconazole 2% Cream [Nizoral 2%] 1 applic TOPICAL BID PRN 08/15/22 08/15/22 History Levofloxacin [Levaquin] 250 mg PO DAILY 08/15/22 08/15/22 History Loratadine 10 mg PO DAILY 08/15/22 08/15/22 History Losartan [Cozaar] 50 mg PO DAILY 08/15/22 08/15/22 History Metoprolol Tartrate [Lopressor] 25 mg PO DAILY 08/15/22 08/15/22 History Nystatin 100,000Unit/gm Cream 1 applic TOPICAL BID PRN 08/15/22 08/15/22 History [Mycostatin Cream] Omeprazole 20 mg PO DAILY 08/15/22 08/15/22 History Potassium Chloride ER [K-Dur 10] 10 meq PO DAILY 08/15/22 08/15/22 History dexAMETHasone [Decadron] 3 mg PO BID 08/15/22 08/15/22 History Allergies Allergy/AdvReac Type Severity Reaction Status Date / Time LOKESH Inhibitors Allergy Rash/Hives Verified 08/15/22 16:23 aspirin Allergy Rash/Hives Verified 08/15/22 16:23 NSAIDS (Non-Steroidal Allergy Rash/Hives Verified 08/15/22 16:23 Anti-Inflamma Sulfa (Sulfonamide Allergy Unknown Verified 08/15/22 16:23 Antibiotics) Childhood tree nut [Nut] Allergy Unknown Verified 08/15/22 16:23 Surgical - Exam Osteopathic Statement: *. No significant issues noted on an osteopathic structural exam other than those noted in the History and Physical/Consult. Vital Signs Temp Pulse Resp BP Pulse Ox 98.4 F 71 22 169/82 94 L 08/15/22 12:09 08/15/22 12:09 08/15/22 12:09 08/15/22 12:09 08/15/22 12:09 - General well developed, well nourished, no distress, obese - Eyes PERRL, normal ocular movement - ENT Head is normocephalic, the face is symmetric, there is no abnormal movements, there is no tenderness to the sinuses are mastoids, auricles well formed, canals are clear, tympanic membranes unremarkable. Nasal examination shows a left septal deviation with some moderate congestion. Mouth and throat demonstrates no tumors or masses some yellow postnasal drainage was noted. Neck is unremarkable. Mouth unremarkable. normal pinna - Neck no masses, trachea midline, no lymphadectomy - Integumentary no rash, no growths, no abnormal pigmentation - Neurologic Week - Musculoskeletal normal posture - Psychiatric oriented to time, oriented to person, oriented to place, speech is normal, memory intact Results - Labs 08/16/22 06:51 08/16/22 06:51 Abnormal Lab Results - Last 24 Hours (Table) 08/16/22 08/16/22 Range/Units 06:51 06:51 WBC 17.07 H (4.50-10.00) X 10*3/uL RDW 15.9 H (11.5-14.5) % Immature Gran # 0.21 H (0.00-0.04) X 10*3/uL Neutrophils # 14.92 H (1.80-7.70) X 10*3/uL Eosinophils # 0 L (0.04-0.35) X 10*3/uL Carbon Dioxide 30.8 H (20.0-27.5) mmol/L BUN/Creatinine Ratio 26.38 H (12.00-20.00) Ratio Glucose 142 H (70-110) mg/dL Diabetes panel 08/16/22 Range/Units 06:51 Sodium 140 (135-145) mmol/L Potassium 4.1 (3.5-5.5) mmol/L Chloride 98 (96-109) mmol/L Carbon Dioxide 30.8 H (20.0-27.5) mmol/L BUN 21.1 (9.0-27.0) mg/dL Creatinine 0.8 (0.6-1.5) mg/dL Glucose 142 H (70-110) mg/dL Calcium 9.0 (8.7-10.3) mg/dL Calcium panel 08/16/22 Range/Units 06:51 Calcium 9.0 (8.7-10.3) mg/dL Pituitary panel 08/16/22 Range/Units 06:51 Sodium 140 (135-145) mmol/L Potassium 4.1 (3.5-5.5) mmol/L Chloride 98 (96-109) mmol/L Carbon Dioxide 30.8 H (20.0-27.5) mmol/L BUN 21.1 (9.0-27.0) mg/dL Creatinine 0.8 (0.6-1.5) mg/dL Glucose 142 H (70-110) mg/dL Calcium 9.0 (8.7-10.3) mg/dL Adrenal panel 08/16/22 Range/Units 06:51 Sodium 140 (135-145) mmol/L Potassium 4.1 (3.5-5.5) mmol/L Chloride 98 (96-109) mmol/L Carbon Dioxide 30.8 H (20.0-27.5) mmol/L BUN 21.1 (9.0-27.0) mg/dL Creatinine 0.8 (0.6-1.5) mg/dL Glucose 142 H (70-110) mg/dL Calcium 9.0 (8.7-10.3) mg/dL Assessment and Plan (1) Nasopharyngitis infective Narrative/Plan: Nasal saline spray and irrigations can be helpful. Follow-up in my office as an outpatient is recommended for follow-up of the nasopharyngeal region to rule out chronic versus acute infection. I've given the patient my card she was advised to follow up with me after discharge. Current Visit: Yes Status: Acute Code(s): J00 - ACUTE NASOPHARYNGITIS [COMMON COLD] SNOMED Code(s): 56191346 Plan: This patient was found have a nasopharyngitis with no evidence of any tumors or masses. There is a scab in the central nasopharynx with purulent material juan diego ining from that region. This is the etiology for the patient's sore throat. Appropriate antibiotics are recommended and I do recommend a follow-up in my office after discharge to confirm healing of the nasopharynx. I've given her my card and the like to see her back in the office after discharge. Outpatient antibiotic drug of choice would be augmented. Thank you very much for alarming to participate in the care of this patient, if I can be of any further service please do not hesitate to contact me. Thank you Time with Patient: Greater than 30
--- NOTE | 2022-08-16 20:54 | P.OP ---
Date of Procedure: 08/16/22 Preoperative Diagnosis: Sore throat, nasopharyngeal abnormality noted on CAT scan Postoperative Diagnosis: Same, chronic versus acute nasopharyngitis Procedure(s) Performed: Nasal endoscopy Anesthesia: none Surgeon: Kris Hunter Estimated Blood Loss (ml): 0 Pathology: none sent Condition: stable Disposition: no change Indications for Procedure: Patient has a sore throat and an abnormality noted on CAT scan, examination of the nasopharynx was warranted Operative Findings: Patient had crusting on the central nasopharynx with purulent material draining inferiorly Description of Procedure: An EF type GP nasopharyngoscope was inserted into both nares and several passes were performed superiorly underneath the middle turbinate and along the inferior turbinate. Left septal deviation noted. Large central scab noted in the nasopharynx with purulent material draining inferiorly. No signs of any tumors or masses. Clear evidence of nasopharyngitis suspect chronic versus acute
[2022-08-16] MEDS ORDERED: FAMOTIDINE 20 MG/2 ML VIAL IV SCH ×2 (21:00)
[2022-08-16] MEDS: FAMOTIDINE 20 MG TAB PO SCH (21:27)
[2022-08-16] MEDS: ATORVASTATIN 10 MG TAB PO SCH (21:27)
--- NOTE | 2022-08-16 22:12 | P.CONS ---
History of Present Illness - Reason for Consult Consult date: 08/16/22 Covid, leukocytosis Requesting physician: Lakeisha Anna - Chief Complaint Sore throat x 2 weeks - History of Present Illness Patient is 86-year-old female with a past medical history negative for hypertension hyperlipidemia GERD UTI with sepsis presenting to the hospital complaining of sore throat and this patient apparently has been diagnosed with the COVID-19 infection about 2 weeks ago on a home-based test the patient symptom has been mostly sore throat and mild shortness of breath mild cough but no sputum production no nausea no vomiting or any diarrhea patient apparently has been treated with a different medication by her primary care physician with out any improvement has the patient was brought into the hospital on arrival to the ER yesterday afternoon the patient was afebrile and no fever has been recorded subsequently patient was not hypoxic or need for supplemental oxygen currently 95% on room air patient did have a white count of 23.7 with a left shift creatinine was normal lactic acid was elevated 2.1 liver enzymes mildly elevated urine has been negative patient did tested positive for COVID influenza RSV and croup history were negative patient did have a chest x-ray COPD chronic changes no definite acute process patient also have a soft tissue neck CT no evidence for peritonsillar abscess asymmetric thickness of the left adenoid direct visualization recommended ENT has been consulted infectious he was consulted because of elevated white count and need for antibiotic therapy Review of Systems Positive point has been mentioned in the HPI rest of the systems are negative Past Medical History Past Medical History: Eye Disorder, GERD/Reflux, Hyperlipidemia, Hypertension, Osteoarthritis (OA), Pneumonia, Skin Disorder Additional Past Medical History / Comment(s): Leaky heart valve/murmur, UTI with sepsis, pneumonias, bronchitis, sinus issues, bilateral glaucoma, L eye macular degeneration, diverticular disease, arthritis bilateral feet toes, bilateral wrists and L shoulder, occasional mid back pain, past upper vertebral fracture, urticaria. History of Any Multi-Drug Resistant Organisms: None Reported Past Surgical History: Joint Replacement Additional Past Surgical History / Comment(s): L total knee arthroplasty, L hand tendon release, L oophorectomy d/t cyst, bilateral cataract removals/lens implants, L eye injection, colonoscopies Past Anesthesia/Blood Transfusion Reactions: No Reported Reaction Additional Past Anesthesia/Blood Transfusion Reaction / Comm: Pt has received blood in past without reaction. Past Psychological History: No Psychological Hx Reported Smoking Status: Never smoker Past Alcohol Use History: None Reported Past Drug Use History: None Reported - Past Family History Father Family Medical History: No Reported History Additional Family Medical History / Comment(s): Father lived to be 85 yrs old. Mother Family Medical History: Cancer Additional Family Medical History / Comment(s): Mother of colon cancer at the age of 71 yrs. Medications and Allergies Home Medications Medication Instructions Recorded Confirmed Type Atorvastatin [Lipitor] 10 mg PO HS 11/20/14 08/15/22 History Timolol 0.5% Ophth Soln [Timoptic 1 drop BOTH EYES BID 11/20/14 08/15/22 History 0.5% Ophth Soln] Vit C/E/Zn/Coppr/Lutein/Zeaxan 1 tab PO BID 11/20/14 08/15/22 History [Preservision Areds 2 Softgel] Montelukast [Singulair] 10 mg PO DAILY 06/25/19 08/15/22 History Cholecalciferol [Vitamin D3 (25 50 mcg PO DAILY 08/15/22 08/15/22 History Mcg = 1000 Iu)] Clopidogrel [Plavix] 75 mg PO DAILY 08/15/22 08/15/22 History Furosemide [Lasix] 20 mg PO BID 08/15/22 08/15/22 History Ketoconazole 2% Cream [Nizoral 2%] 1 applic TOPICAL BID PRN 08/15/22 08/15/22 History Loratadine 10 mg PO DAILY 08/15/22 08/15/22 History Losartan [Cozaar] 50 mg PO DAILY 08/15/22 08/15/22 History Metoprolol Tartrate [Lopressor] 25 mg PO DAILY 08/15/22 08/15/22 History Nystatin 100,000Unit/gm Cream 1 applic TOPICAL BID PRN 08/15/22 08/15/22 History [Mycostatin Cream] Omeprazole 20 mg PO DAILY 08/15/22 08/15/22 History Potassium Chloride ER [K-Dur 10] 10 meq PO DAILY 08/15/22 08/15/22 History dexAMETHasone [Decadron] 3 mg PO BID 08/15/22 08/15/22 History cefUROXime axetiL [Ceftin] 500 mg PO BID 7 Days #14 tab 08/18/22 Rx Allergies Allergy/AdvReac Type Severity Reaction Status Date / Time LOKESH Inhibitors Allergy Rash/Hives Verified 08/15/22 16:23 aspirin Allergy Rash/Hives Verified 08/15/22 16:23 NSAIDS (Non-Steroidal Allergy Rash/Hives Verified 08/15/22 16:23 Anti-Inflamma Sulfa (Sulfonamide Allergy Unknown Verified 08/15/22 16:23 Antibiotics) Childhood tree nut [Nut] Allergy Unknown Verified 08/15/22 16:23 Physical Exam Vitals: Vital Signs Temp Pulse Pulse Resp BP BP Pulse Ox 08/16/22 07:23 98.2 F 70 16 138/84 94 L 08/16/22 02:00 97.8 F 72 17 126/75 96 08/15/22 20:20 97.8 F 85 17 190/100 96 08/15/22 18:33 98.2 F 73 18 180/94 95 08/15/22 18:13 98.1 F 76 18 175/89 95 08/15/22 12:09 98.4 F 71 22 169/82 94 L Intake and Output 08/15/22 08/16/22 08/16/22 22:59 06:59 14:59 Output Total 200 Balance -200 Output: Urine 200 Other: Voiding Method Toilet Toilet Diaper Diaper Incontinent Incontinent # Voids 2 Weight 69.853 kg GENERAL DESCRIPTION: Elderly female lying in bed, no distress. No tachypnea or accessory muscle of respiration use. HEENT: Shows Pallor , no scleral icterus. Oral mucous membrane is dry. Mild pharyngeal erythema no thrush NECK: Trachea central, no thyromegaly. LUNGS: Unlabored breathing. Decreased breath sound at bases. No wheeze or crackle. HEART: S1, S2, regular rate and rhythm. No loud murmur ABDOMEN: Soft, no tenderness , guarding or rigidity, no organomegaly EXTREMITIES: No edema of feet. SKIN: No rash, no masses palpable. NEUROLOGICAL: The patient is awake, alert, oriented x3, mood and affect normal. Results CBC & Chem 7: 08/18/22 05:45 08/17/22 06:04 Labs: Abnormal Lab Results - Last 24 Hours (Table) 08/15/22 08/15/22 08/15/22 Range/Units 13:56 13:56 13:56 WBC 23.7 H (3.8-10.6) k/uL Hct 46.6 H (34.0-46.0) % Neutrophils # 18.8 H (1.3-7.7) k/uL Monocytes # 1.3 H (0-1.0) k/uL Chloride 95 L (98-107) mmol/L Carbon Dioxide 38 H (22-30) mmol/L BUN 23 H (7-17) mg/dL Plasma Lactic Acid [place] (0.7-2.0) mmol/L AST 37 H (14-36) U/L ALT 39 H (4-34) U/L Alkaline Phosphatase 139 H (38-126) U/L Troponin I (0.000-0.034) ng/mL SARS-CoV-2 (PCR) Detected A (Not Detectd) 08/15/22 08/15/22 Range/Units 13:56 13:56 WBC (3.8-10.6) k/uL Hct (34.0-46.0) % Neutrophils # (1.3-7.7) k/uL Monocytes # (0-1.0) k/uL Chloride (98-107) mmol/L Carbon Dioxide (22-30) mmol/L BUN (7-17) mg/dL Plasma Lactic Acid [place] 2.1 H* (0.7-2.0) mmol/L AST (14-36) U/L ALT (4-34) U/L Alkaline Phosphatase (38-126) U/L Troponin I 0.037 H* (0.000-0.034) ng/mL SARS-CoV-2 (PCR) (Not Detectd) Assessment and Plan (1) COVID-19 Status: Acute Code(s): U07.1 - COVID-19 SNOMED Code(s): 169554645 (2) Leukocytosis Status: Acute Code(s): D72.829 - ELEVATED WHITE BLOOD CELL COUNT, UNSPECIFIED SNOMED Code(s): 396260255 (3) Pharyngitis Status: Acute Code(s): J02.9 - ACUTE PHARYNGITIS, UNSPECIFIED SNOMED Code(s): 158923509 Plan: 1patient presented to hospital predominantly with sore throat symptom has been going on for 2 weeks pending outpatient oral antibiotic therapy with abnormal CT concerning for thickness of the left adenoid with a question of possible purulent pharyngitis. 2patient also tested positive for COVID-19 however initial positive test was more than 2 weeks ago and may not need any isolation at this point at the same time chest x-ray was negative and the patient is on room air no need for st eroids or remdesivir treatment should be mostly supportive 3patient with multiple antibiotic allergies that would limit the number of antibiotics safe to use 4we will empirically add Rocephin 2 g daily while waiting for the work-up to be completed We will follow on clinical condition and cultures to further adjust medication if needed Thank you for this consultation we will follow the patient along with you Time with Patient: Greater than 30
[2022-08-17] MEDS: LOSARTAN 50 MG TAB PO SCH (05:37)
[2022-08-17] MEDS: PANTOPRAZOLE 40 MG TABLET PO SCH (05:37)
[2022-08-17] MEDS: ENOXAPARIN 40 MG/0.4 ML SYRINGE SQ SCH (08:40)
[2022-08-17] MEDS: LORATADINE 10 MG TAB PO SCH (08:40)
[2022-08-17] MEDS: METOPROLOL TARTRATE 25 MG TAB PO SCH (08:40)
[2022-08-17] MEDS: CLOPIDOGREL 75 MG TAB PO SCH (08:40)
[2022-08-17] MEDS: FUROSEMIDE 20 MG TAB PO SCH ×2 (08:41→22:02)
[2022-08-17] MEDS: CHOLECALCIFEROL 25 MCG (1000 IU) TABLET PO SCH (08:41)
[2022-08-17] MEDS: POTASSIUM CHLORIDE ER 10 MEQ TAB.ER.PRT PO SCH (08:41)
[2022-08-17] MEDS: VIT A,C & E-LUTEIN-MINERALS 1 EACH TAB PO SCH ×2 (08:41→21:56)
[2022-08-17] MEDS: MONTELUKAST 10 MG TAB PO SCH (08:41)
[2022-08-17] MEDS: MAG HYDROX/AL HYDROX/SIMETH 30 ML, diphenhydrAMINE ELIXIR 75 MG, LIDOCAINE VISCOUS 2% 3... PO SCH ×9 (08:41→21:55)
[2022-08-17] MEDS: TIMOLOL 0.5% OPHTH DROPS 5 ML BTL BOTH EYES SCH ×2 (08:42→21:55)
[2022-08-17 10:33] LABS: Basophils # (A) 0.02 X 10*3/uL (0.00-0.10); Basophils % (A) 0.1 %; Eosinophils # (A) 0.01 X 10*3/uL (0.04-0.35); Eosinophils % (A) 0.1 %; HCT 38.4 % (37.2-46.3); HGB 12.4 g/dL (12.0-15.0); Lymphocytes # (A) 2.33 X 10*3/uL (0.90-5.00); Lymphocytes % (A) 13.5 %; MCH 28.8 pg (27.0-32.0); MCHC 32.3 g/dL (32.0-37.0); MCV 89.1 fL (80.0-97.0); Mean Platelet Volume 10.2 fL (9.5-12.2); Monocytes # (A) 1.04 X 10*3/uL (0.20-1.00); NRBC Per 100 WBC 0 /100 WBCS (0.0-0.0); Neutrophils # (A) 13.56 X 10*3/uL (1.80-7.70); Neutrophils % (A) 78.3 %; Platelet Count 258 X 10*3/uL (140-440); RBC 4.31 X 10*6/uL (4.10-5.20); RDW 15.6 % (11.5-14.5)
[2022-08-17 11:25] LABS: African American GFR (CKD) 65.6 (60.0-200.0); Albumin 3.7 g/dL (3.8-4.9); Albumin/Globulin Ratio 1.62 (1.60-3.17); Anion Gap 11.7 mmol/L (10.00-18.00); BUN/Creat Ratio 33.11 Ratio (12.00-20.00); C Reactive Protein 2.9 mg/dL (0.00-0.80); Calcium 9.1 mg/dL (8.7-10.3); Carbon Dioxide 29.6 mmol/L (20.0-27.5); Globulin 2.3 g/dL (1.6-3.3); Non-African American GFR(CKD) 56.6 (60.0-200.0); Potassium 3.9 mmol/L (3.5-5.5); Total Bilirubin 0.6 mg/dL (0.30-1.20); Total Protein 5.9 g/dL (6.2-8.2)
--- NOTE | 2022-08-17 12:28 | P.PN ---
Subjective This is a pleasant 86 years old female with multiple medical problems: Hypertension, hyperlipidemia, osteoarthritis, GERD Patient presents because of sore throat for about 2 weeks, her PCP is Dr. Wilson and she was treated with him for UTI about 2 weeks ago. One week ago she was started having sore throat with occasional dry coughing but no dyspnea or chest pain, also she complained from swallowing difficulty. She denies abdominal pain vomiting or diarrhea, she's been a lot but no dysuria, 2 weeks ago when she had UTI she had dysuria which is resolved now. She has some mild frontal headache but no weakness or numbness or dizziness. No smoking alcohol or illicit drugs. At baseline patient uses a walker and walks with difficulty. Presents because of sore throat or nasal congestion. Patient was diagnosed with [place] about 2 weeks earlier. Lab showing leukocytosis at 23.7, partly because of infection and probably because patient was on steroids at home. Also showing evidence of leukocytosis. BMP is unremarkable except for mildly elevated BUN at 23, creatinine is normal 0.7. Repeat lactic acid normal at 1.7. Liver enzymes mildly elevated. Troponin mildly elevated Pronecalcitonin is 0.04 which is normal. Urine analysis no suspicious for infection. Strept group is negative EKG: normal sinus rhythm at 79 with single T-wave inversion in V2, rest of EKG showing no significant ST-T changes CT of the neck soft tissue: No tonsillar abscesses, asymmetry thickening of the left adenoid, direct visualization is recommended. Left upper lobe pulmonary nodule concerning for malignancy. Further workup was recommended. Atherosclerosis of the carotid bifurcation with at least 50% stenosis on the right Chest x-ray: COPD and chronic changes. Borderline heart size. No definite acute process 08/17/2022 Patient today she still have some symptoms of sore throat, she status post laryngoscopy yesterday with some purulent discharge that given out from the nasopharyngeal area, patient denies fever and denies following problem however she still have leukocytosis and she still have symptoms ReoProcalcitonin is normal but we will keep monitoring for now reattached She remains on ceftriaxone 2 g daily. Swallow evaluation : Normal swallowing Objective - Vital Signs Vital signs: Vital Signs Temp 97.7 F 08/17/22 08:12 Pulse 69 08/17/22 08:12 Resp 17 08/17/22 08:12 BP 125/75 08/17/22 08:12 Pulse Ox 95 08/17/22 08:12 FiO2 Intake & Output 08/16/22 08/17/22 08/17/22 18:59 06:59 18:59 Output Total 500 200 Balance -500 -200 Output: Urine 500 200 Other: Voiding Method Toilet External Catheter External Catheter Diaper Incontinent # Voids 2 - Exam GENERAL: The patient is alert and oriented x3, not in any acute distress. Well developed, well nourished. HEENT: Pupils are round and equally reacting to light. EOMI. No scleral icterus. No conjunctival pallor. Normocephalic, atraumatic. No pharyngeal erythema. No thyromegaly. CARDIOVASCULAR: S1 and S2 present. No murmurs, rubs, or gallops. PULMONARY: Chest is clear to auscultation, no wheezing or crackles. ABDOMEN: Soft, nontender, nondistended, normoactive bowel sounds. No palpable organomegaly. MUSCULOSKELETAL: No joint swelling or deformity. EXTREMITIES: No cyanosis, clubbing, or pedal edema. NEUROLOGICAL: Gross neurological examination did not reveal any focal deficits. SKIN: No rashes. no petechiae. - Labs CBC & Chem 7: 08/17/22 06:04 08/17/22 06:04 Labs: Abnormal Lab Results - Last 24 Hours (Table) 08/17/22 08/17/22 Range/Units 06:04 06:04 WBC 17.30 H (4.50-10.00) X 10*3/uL RDW 15.6 H (11.5-14.5) % Immature Gran # 0.34 H (0.00-0.04) X 10*3/uL Neutrophils # 13.56 H (1.80-7.70) X 10*3/uL Monocytes # 1.04 H (0.20-1.00) X 10*3/uL Eosinophils # 0.01 L (0.04-0.35) X 10*3/uL Carbon Dioxide 29.6 H (20.0-27.5) mmol/L BUN 30.0 H (9.0-27.0) mg/dL Est GFR (CKD-EPI)NonAf 56.6 L (60.0-200.0) BUN/Creatinine Ratio 33.11 H (12.00-20.00) Ratio Glucose 123 H (70-110) mg/dL C-Reactive Protein 2.90 H (0.00-0.80) mg/dL Total Protein 5.9 L (6.2-8.2) g/dL Albumin 3.7 L (3.8-4.9) g/dL Assessment and Plan Assessment: Soreness of the throats with asymmetry thickening of the left adenoid, status post nasal endoscopy and drainage of purulent discharge from the central nasopharynx. Acute covid Infection with no hypoxia or pneumonia. Mildly elevated troponin secondary to Covid infection Hypertension Hyperlipidemia History of breast arthritis History of GERD Plan: Continue with antibiotics as per ID team Monitor WBCs Continue with bronchodilator Pulmonary team consult Consult for ENT evaluation continue with Plavix Labs and medication were reviewed.. Continue same treatment. Continue with symptomatic treatment. Resume home medication. Monitor labs and vitals. DVT and GI prophylaxis. Further recommendations as per clinical course of the patient DVT prophylaxis: Subcutaneous Lovenox GI Prophylaxis: Pepcid PT/OT: Pending Prognosis is guarded
--- NOTE | 2022-08-17 14:39 | P.PN ---
Subjective Progress Note Date: 08/17/22 86-year-old female who presented to the emergency department on August 15, complaining of sore throat. The patient states that she had a sore throat for 2 weeks. She apparently was also diagnosed as having coronavirus 2 weeks ago. She recently saw her primary care physician who diagnosed her as having a urinary tract infection, prescribed some antibiotics. Despite that, she still complains of sore throat. She might also be complaining of a bit of difficulty breathing, and some difficulty in swallowing. She had a chest x-ray that was normal. She has been fully vaccinated against coronavirus. Currently, she is on room air. The patient is not receiving any IV fluids. The chest x-ray apparently showed a very small left upper lobe nodule. I thought she should be seen by ear nose and throat medicine for her difficulty in swallowing, and her sore throat. White count 17.07, hemoglobin 14, hematocrit 42.7, and platelet count 281,000. Sodium 140, potassium 4.1, chlorides 98, CO2 31, anion gap 11, BUN 21, and creatinine 0.8. Lactic acid was normal. Urine was negative. A strep screen was negative. The chest x-ray was normal. A computed tomography scan of the neck, revealed no evidence of peritonsillar abscess. There is some asymmetric thickness of the left adenoid. There is a left upper lung pulmonary nodule. The rest of the evaluation was unremarkable. The patient is seen today 08/17/2022 in follow-up on the regular medical floor. She is awake and alert in no acute distress. She was seen by ENT yesterday and was found to have crusting on the central nasopharynx with purulent material draining inferiorly. Evidence of nasopharyngitis suspect chronic versus acute. White count 17.3. Hemoglobin 12.4. Platelets 258. Sodium 138. Potassium 3.9. Bicarb 29. BUN 30. Creatinine 0.9. Glucose 123. Pro-calcitonin 0.05. She is continued on ceftriaxone. Lovenox for DVT prophylaxis. Objective - Vital Signs Vital signs: Vital Signs Temp 97.0 F L 08/17/22 13:51 Pulse 72 08/17/22 13:51 Resp 16 08/17/22 13:51 BP 146/81 08/17/22 13:51 Pulse Ox 94 L 08/17/22 13:51 FiO2 Intake & Output 08/16/22 08/17/22 08/17/22 18:59 06:59 18:59 Output Total 500 200 Balance -500 -200 Output: Urine 500 200 Other: Voiding Method Toilet External Catheter External Catheter Diaper Incontinent # Voids 2 - Exam GENERAL EXAM: Alert, pleasant 86-year-old female, on room air, comfortable in no apparent distress. HEAD: Normocephalic. EYES: Normal reaction of pupils, equal size. NOSE: Clear with pink turbinates. THROAT: No erythema or exudates. NECK: No masses, no JVD. CHEST: No chest wall deformity. LUNGS: Equal air entry with no crackles, wheeze, rhonchi or dullness. CVS: S1 and S2 normal with no audible murmur, regular rhythm. ABDOMEN: No hepatosplenomegaly, normal bowel sounds, no guarding or rigidity. SPINE: No scoliosis or deformity SKIN: No rashes CENTRAL NERVOUS SYSTEM: No focal deficits, tone is normal in all 4 extremities. EXTREMITIES: There is no peripheral edema. No clubbing, no cyanosis. Peripheral pulses are intact. - Labs CBC & Chem 7: 08/17/22 06:04 08/17/22 06:04 Labs: Abnormal Lab Results - Last 24 Hours (Table) 08/17/22 08/17/22 Range/Units 06:04 06:04 WBC 17.30 H (4.50-10.00) X 10*3/uL RDW 15.6 H (11.5-14.5) % Immature Gran # 0.34 H (0.00-0.04) X 10*3/uL Neutrophils # 13.56 H (1.80-7.70) X 10*3/uL Monocytes # 1.04 H (0.20-1.00) X 10*3/uL Eosinophils # 0.01 L (0.04-0.35) X 10*3/uL Carbon Dioxide 29.6 H (20.0-27.5) mmol/L BUN 30.0 H (9.0-27.0) mg/dL Est GFR (CKD-EPI)NonAf 56.6 L (60.0-200.0) BUN/Creatinine Ratio 33.11 H (12.00-20.00) Ratio Glucose 123 H (70-110) mg/dL C-Reactive Protein 2.90 H (0.00-0.80) mg/dL Total Protein 5.9 L (6.2-8.2) g/dL Albumin 3.7 L (3.8-4.9) g/dL Assessment and Plan Assessment: Severe sore throat/pharyngitis, lasting 2 weeks, without relief. She was seen by ENT 08/16/2022 and was found to have crusting on the central nasopharynx with purulent material draining inferiorly. Evidence of nasopharyngitis suspect chronic versus acute. Pro-calcitonin 0.05 Positive test for coronavirus infection, 08/02/2022, without associated coronavirus pneumonia. History of gastroesophageal reflux disease. History of hypertension. History of hyperlipidemia. Previous history of UTI with sepsis. Macular degeneration. History of pneumonia. Lifelong nonsmoker. Plan: The patient was seen and evaluated ENT consult appreciated Procalcitonin within normal limits Cleared for discharge from the pulmonary standpoint I have personally seen and examined the patient, performed the documentation and the assessment and plan as written. Number of minutes spent on the visit: 10.
--- NOTE | 2022-08-17 21:07 | P.PN ---
Subjective Progress Note Date: 08/17/22 Principal diagnosis: Leukocytosis Patient is 86-year-old female with a past medical history negative for hypertension hyperlipidemia GERD UTI with sepsis presenting to the hospital complaining of sore throat and this patient apparently has been diagnosed with the COVID-19 infection about 2 weeks ago, patient was evaluated by ENT on 08/16/2022 with evidence of some purulent nasopharyngeal secretions but didn't mention any abscess On today's evaluation that is 08/17/2022, the patient denies having any fever or any chills the patient sore throat has slightly decreased in intensity and denies having difficulty swallowing no chest pain shortness of breath or cough and no diarrhea Objective - Vital Signs Vital signs: Vital Signs Temp 97.7 F 08/17/22 08:12 Pulse 69 08/17/22 08:12 Resp 17 08/17/22 08:12 BP 125/75 08/17/22 08:12 Pulse Ox 95 08/17/22 08:12 FiO2 Intake & Output 08/16/22 08/17/22 08/17/22 18:59 06:59 18:59 Output Total 500 200 Balance -500 -200 Output: Urine 500 200 Other: Voiding Method Toilet External Catheter External Catheter Diaper Incontinent # Voids 2 - Exam GENERAL DESCRIPTION: An elderly female lying in bed in no distress RESPIRATORY SYSTEM: Unlabored breathing , decreased breath sounds at bases HEART: S1 S2 regular rate and rhythm , ABDOMEN: Soft , no tenderness EXTREMITIES: No edema feet - Labs CBC & Chem 7: 08/17/22 06:04 08/17/22 06:04 Labs: Abnormal Lab Results - Last 24 Hours (Table) 08/17/22 08/17/22 Range/Units 06:04 06:04 WBC 17.30 H (4.50-10.00) X 10*3/uL RDW 15.6 H (11.5-14.5) % Immature Gran # 0.34 H (0.00-0.04) X 10*3/uL Neutrophils # 13.56 H (1.80-7.70) X 10*3/uL Monocytes # 1.04 H (0.20-1.00) X 10*3/uL Eosinophils # 0.01 L (0.04-0.35) X 10*3/uL Carbon Dioxide 29.6 H (20.0-27.5) mmol/L BUN 30.0 H (9.0-27.0) mg/dL Est GFR (CKD-EPI)NonAf 56.6 L (60.0-200.0) BUN/Creatinine Ratio 33.11 H (12.00-20.00) Ratio Glucose 123 H (70-110) mg/dL C-Reactive Protein 2.90 H (0.00-0.80) mg/dL Total Protein 5.9 L (6.2-8.2) g/dL Albumin 3.7 L (3.8-4.9) g/dL Assessment and Plan (1) COVID-19 Current Visit: Yes Status: Acute Code(s): U07.1 - COVID-19 SNOMED Code(s): 447026868 (2) Leukocytosis Current Visit: Yes Status: Acute Code(s): D72.829 - ELEVATED WHITE BLOOD CELL COUNT, UNSPECIFIED SNOMED Code(s): 686253738 (3) Nasopharyngitis infective Current Visit: Yes Status: Acute Code(s): J00 - ACUTE NASOPHARYNGITIS [COM MON COLD] SNOMED Code(s): 17593089 Plan: 1patient presented to hospital predominantly with sore throat symptom has been going on for 2 weeks pending outpatient oral antibiotic therapy with abnormal CT concerning for thickness of the left adenoid with a question of possible purulent pharyngitis, We seem to have been confirmed on nasopharyngeal examination by the ENT patient did have some improvement in symptoms with Rocephin which will be continued 2patient also tested positive for COVID-19 however initial positive test was more than 2 weeks ago and may not need any isolation at this point at the same time chest x-ray was negative and the patient is on room air no need for steroids or remdesivir treatment should be mostly supportive
[2022-08-17] MEDS: ATORVASTATIN 10 MG TAB PO SCH (22:02)
[2022-08-17] MEDS: FAMOTIDINE 20 MG TAB PO SCH (22:02)
[2022-08-18] MEDS: PANTOPRAZOLE 40 MG TABLET PO SCH (05:11)
[2022-08-18 08:18] VITALS: BP 138/79; PULSE 77; RESP 18; TEMP 96.9
[2022-08-18 08:45] LABS: Basophils # (A) 0.03 X 10*3/uL (0.00-0.10); Basophils % (A) 0.3 %; Eosinophils # (A) 0 X 10*3/uL (0.04-0.35); Eosinophils % (A) 0 %; HCT 40.7 % (37.2-46.3); HGB 12.8 g/dL (12.0-15.0); Immature Grans, Automated 0.8 %; Lymphocytes # (A) 3.66 X 10*3/uL (0.90-5.00); Lymphocytes % (A) 34.3 %; MCH 28.4 pg (27.0-32.0); MCHC 31.4 g/dL (32.0-37.0); MCV 90.2 fL (80.0-97.0); Mean Platelet Volume 10.5 fL (9.5-12.2); Monocytes # (A) 1.07 X 10*3/uL (0.20-1.00); NRBC Per 100 WBC 0 /100 WBCS (0.0-0.0); Neutrophils # (A) 5.82 X 10*3/uL (1.80-7.70); Neutrophils % (A) 54.6 %; Platelet Count 234 X 10*3/uL (140-440); RBC 4.51 X 10*6/uL (4.10-5.20); RDW 15.9 % (11.5-14.5); WBC 10.66 X 10*3/uL (4.50-10.00)
[2022-08-18] MEDS: ENOXAPARIN 40 MG/0.4 ML SYRINGE SQ SCH (10:25)
[2022-08-18] MEDS: POTASSIUM CHLORIDE ER 10 MEQ TAB.ER.PRT PO SCH (10:25)
[2022-08-18] MEDS: MONTELUKAST 10 MG TAB PO SCH (10:25)
[2022-08-18] MEDS: CHOLECALCIFEROL 25 MCG (1000 IU) TABLET PO SCH (10:25)
[2022-08-18] MEDS: LOSARTAN 50 MG TAB PO SCH (10:26)
[2022-08-18] MEDS: FUROSEMIDE 20 MG TAB PO SCH (10:26)
[2022-08-18] MEDS: METOPROLOL TARTRATE 25 MG TAB PO SCH (10:26)
[2022-08-18] MEDS: LORATADINE 10 MG TAB PO SCH (10:26)
[2022-08-18] MEDS: CLOPIDOGREL 75 MG TAB PO SCH (10:26)
[2022-08-18] MEDS: TIMOLOL 0.5% OPHTH DROPS 5 ML BTL BOTH EYES SCH (10:47)
[2022-08-18] MEDS: VIT A,C & E-LUTEIN-MINERALS 1 EACH TAB PO SCH (10:48)
[2022-08-18] MEDS: MAG HYDROX/AL HYDROX/SIMETH 30 ML, diphenhydrAMINE ELIXIR 75 MG, LIDOCAINE VISCOUS 2% 3... PO SCH ×3 (10:48)
--- NOTE | 2022-08-18 14:37 | P.PN ---
Subjective Progress Note Date: 08/18/22 86-year-old female who presented to the emergency department on August 15, complaining of sore throat. The patient states that she had a sore throat for 2 weeks. She apparently was also diagnosed as having coronavirus 2 weeks ago. She recently saw her primary care physician who diagnosed her as having a urinary tract infection, prescribed some antibiotics. Despite that, she still complains of sore throat. She might also be complaining of a bit of difficulty breathing, and some difficulty in swallowing. She had a chest x-ray that was normal. She has been fully vaccinated against coronavirus. Currently, she is on room air. The patient is not receiving any IV fluids. The chest x-ray apparently showed a very small left upper lobe nodule. I thought she should be seen by ear nose and throat medicine for her difficulty in swallowing, and her sore throat. White count 17.07, hemoglobin 14, hematocrit 42.7, and platelet count 281,000. Sodium 140, potassium 4.1, chlorides 98, CO2 31, anion gap 11, BUN 21, and creatinine 0.8. Lactic acid was normal. Urine was negative. A strep screen was negative. The chest x-ray was normal. A computed tomography scan of the neck, revealed no evidence of peritonsillar abscess. There is some asymmetric thickness of the left adenoid. There is a left upper lung pulmonary nodule. The rest of the evaluation was unremarkable. The patient is seen today 08/17/2022 in follow-up on the regular medical floor. She is awake and alert in no acute distress. She was seen by ENT yesterday and was found to have crusting on the central nasopharynx with purulent material draining inferiorly. Evidence of nasopharyngitis suspect chronic versus acute. White count 17.3. Hemoglobin 12.4. Platelets 258. Sodium 138. Potassium 3.9. Bicarb 29. BUN 30. Creatinine 0.9. Glucose 123. Pro-calcitonin 0.05. She is continued on ceftriaxone. Lovenox for DVT prophylaxis. The patient is seen today 08/18/2022 in follow-up on the regular medical floor. Doing better today compared to yesterday. She is maintaining O2 saturations in the 90s on room air. No IV fluids. She is continued on ceftriaxone. White count 10.6. Hemoglobin 12.8. Platelets 234. Objective - Vital Signs Vital signs: Vital Signs Temp 96.9 F L 08/18/22 08:16 Pulse 77 08/18/22 08:16 Resp 18 08/18/22 08:16 BP 138/79 08/18/22 08:16 Pulse Ox 97 08/18/22 08:16 FiO2 Intake & Output 08/17/22 08/18/22 08/18/22 18:59 06:59 18:59 Other: Voiding Method External Catheter Toilet Bedside Commode # Voids 2 1 2 # Bowel Movements 1 - Exam GENERAL EXAM: Alert, 86-year-old female, on room air, comfortable in no apparent distress. HEAD: Normocephalic. EYES: Normal reaction of pupils, equal size. NOSE: Clear with pink turbinates. THROAT: No erythema or exudates. NECK: No masses, no JVD. CHEST: No chest wall deformity. LUNGS: Equal air entry with no crackles, wheeze, rhonchi or dullness. CVS: S1 and S2 normal with no audible murmur, regular rhythm. ABDOMEN: No hepatosplenomegaly, normal bowel sounds, no guarding or rigidity. SPINE: No scoliosis or deformity SKIN: No rashes CENTRAL NERVOUS SYSTEM: No focal deficits, tone is normal in all 4 extremities. EXTREMITIES: There is no peripheral edema. No clubbing, no cyanosis. Peripheral pulses are intact. - Labs CBC & Chem 7: 08/18/22 05:45 08/17/22 06:04 Labs: Abnormal Lab Results - Last 24 Hours (Table) 08/18/22 Range/Units 05:45 WBC 10.66 H (4.50-10.00) X 10*3/uL MCHC 31.4 L (32.0-37.0) g/dL RDW 15.9 H (11.5-14.5) % Immature Gran # 0.08 H (0.00-0.04) X 10*3/uL Monocytes # 1.07 H (0.20-1.00) X 10*3/uL Eosinophils # 0 L (0.04-0.35) X 10*3/uL Assessment and Plan Assessment: Severe sore throat/pharyngitis, lasting 2 weeks, without relief. She was seen by ENT 08/16/2022 and was found to have crusting on the central nasopharynx with purulent material draining inferiorly. Evidence of nasopharyngitis suspect c hronic versus acute. Pro-calcitonin 0.05 Positive test for coronavirus infection, 08/02/2022, without associated coronavirus pneumonia. History of gastroesophageal reflux disease. History of hypertension. History of hyperlipidemia. Previous history of UTI with sepsis. Macular degeneration. History of pneumonia. Lifelong nonsmoker. Plan: The patient was seen and evaluated Medications and labs reviewed Stable and on room air Cleared for discharge from the pulmonary standpoint I have personally seen and examined the patient, performed the documentation and the assessment and plan as written. Number of minutes spent on the visit: 10.
--- NOTE | 2022-08-18 14:53 | P.PN ---
Subjective Progress Note Date: 08/18/22 Principal diagnosis: Leukocytosis Patient is 86-year-old female with a past medical history negative for hypertension hyperlipidemia GERD UTI with sepsis presenting to the hospital complaining of sore throat and this patient apparently has been diagnosed with the COVID-19 infection about 2 weeks ago, patient was evaluated by ENT on 08/16/2022 with evidence of some purulent nasopharyngeal secretions but didn't mention any abscess On today's evaluation that is 08/18/2022, the patient remains to be afebrile, the patient sore throat has decreased in intensity and the patient denies having difficulty swallowing, the patient denies chest pain shortness of breath did h ave mild cough and no diarrhea Objective - Vital Signs Vital signs: Vital Signs Temp 96.9 F L 08/18/22 08:16 Pulse 77 08/18/22 08:16 Resp 18 08/18/22 08:16 BP 138/79 08/18/22 08:16 Pulse Ox 97 08/18/22 08:16 FiO2 Intake & Output 08/17/22 08/18/22 08/18/22 18:59 06:59 18:59 Other: Voiding Method External Catheter Toilet Bedside Commode # Voids 2 1 2 # Bowel Movements 1 - Exam GENERAL DESCRIPTION: An elderly female lying in bed in no distress RESPIRATORY SYSTEM: Unlabored breathing , decreased breath sounds at bases HEART: S1 S2 regular rate and rhythm , ABDOMEN: Soft , no tenderness EXTREMITIES: No edema feet - Labs CBC & Chem 7: 08/18/22 05:45 08/17/22 06:04 Labs: Abnormal Lab Results - Last 24 Hours (Table) 08/18/22 Range/Units 05:45 WBC 10.66 H (4.50-10.00) X 10*3/uL MCHC 31.4 L (32.0-37.0) g/dL RDW 15.9 H (11.5-14.5) % Immature Gran # 0.08 H (0.00-0.04) X 10*3/uL Monocytes # 1.07 H (0.20-1.00) X 10*3/uL Eosinophils # 0 L (0.04-0.35) X 10*3/uL Assessment and Plan (1) COVID-19 Status: Acute Code(s): U07.1 - COVID-19 SNOMED Code(s): 895531546 (2) Leukocytosis Status: Acute Code(s): D72.829 - ELEVATED WHITE BLOOD CELL COUNT, UNSPECIFIED SNOMED Code(s): 470046361 (3) Nasopharyngitis infective Status: Acute Code(s): J00 - ACUTE NASOPHARYNGITIS [COMMON COLD] SNOMED Code(s): 68812031 Plan: 1patient presented to hospital predominantly with sore throat symptom has been going on for 2 weeks pending outpatient oral antibiotic therapy with abnormal CT concerning for thickness of the left adenoid with a question of possible purulent pharyngitis, We seem to have been confirmed on nasopharyngeal examination by the ENT patient did have some improvement in symptoms with Altaf ephin and the patient white count has normalized. Consider short course of oral Ceftin on discharge this was discussed with the admitting physician working on discharge 2patient also tested positive for COVID-19 however initial positive test was more than 2 weeks ago and may not need any isolation at this point at the same time chest x-ray was negative and the patient is on room air no need for steroids or remdesivir treatment should be mostly supportive Time with Patient: Less than 30
--- NOTE | 2022-08-19 06:08 | P.DS ---
Providers Date of admission: 08/15/22 17:07 Attending physician: Haylie Ibrahim Consults: 08/15/22 17:40 Consult Physician Routine Consulting Provider: Lucio Smith Consult Reason/Comments: Pulmonary nodule, Covid, leukocytosis Do you want consulting provider notified?: Yes, Notify in am 08/15/22 19:53 Consult Physician Urgent Consulting Provider: Mae Shah Consult Reason/Comments: covid, leukocytosis Do you want consulting provider notified?: Yes 08/16/22 09:46 Consult Physician Routine Consulting Provider: Kris Hunter Consult Reason/Comments: Thickening of adenoid Do you want consulting provider notified?: Yes Primary care physician: Bre Hilario [facility] Course: Diagnoses: Acute nasopharyngitis, improving. Soreness of the throats with asymmetry thickening of the left adenoid, status post nasal endoscopy and drainage of purulent discharge from the central nasopharynx. Acute covid Infection with no hypoxia or pneumonia. Mildly elevated troponin secondary to Covid infection Hypertension Hyperlipidemia History of breast arthritis History of GERD Hospital course: This is a pleasant 86 years old female with multiple medical problems: Hypertension, hyperlipidemia, osteoarthritis, GERD patient presents withssore throat. CT of the neck soft tissue: No tonsillar abscesses, asymmetry thickening of the left adenoid, direct visualization is recommended status post endoscopy and drainage of purulent fluid. Patient passed a swallow evaluation. Patient improved clinically and stable. Patient denies any other symptoms, no dyspnea, no chest pain, no change in urine or bowel habits. No fevers. Patient agrees to go home today. Patient was cleared for discharge by all consultants including pulmonary, ENT and infectious disease team. Patient will be discharged on oral antibiotics prior to team Problems and management plan were discussed with the patient and he verbalized understanding and acceptance Patient was found stable and can be discharged home in guarded prognosis however he needs follow-up as an outpatient. Patient was instructed to follow up with PCP Dr. Wilson within one week and patient agrees Patient was instructed to follow up with Dr. Finney in 1-[address] Hunter in 1-2 weeks after discharge and she agrees. Physical exam Gen: patient is a AAOx3, no distress CVS: S1-S2, RRR, no murmur Lungs: B/L CTA, no wheezing Abdomen: soft, no distention, no tenderness, positive bowel sounds Extremity: no leg edema or induration Time spent more than 35 minutes Plan - Discharge Summary New Discharge Prescriptions: New cefUROXime axetiL [Ceftin] 500 mg PO BID 7 Days #14 tab Continue Atorvastatin [Lipitor] 10 mg PO HS Vit C/E/Zn/Coppr/Lutein/Zeaxan [Preservision Areds 2 Softgel] 1 tab PO BID Timolol 0.5% Ophth Soln [Timoptic 0.5% Ophth Soln] 1 drop BOTH EYES BID Montelukast [Singulair] 10 mg PO DAILY Potassium Chloride ER [K-Dur 10] 10 meq PO DAILY Metoprolol Tartrate [Lopressor] 25 mg PO DAILY Loratadine 10 mg PO DAILY Nystatin 100,000Unit/gm Cream [Mycostatin Cream] 1 applic TOPICAL BID PRN PRN Reason: Rash Losartan [Cozaar] 50 mg PO DAILY Furosemide [Lasix] 20 mg PO BID Clopidogrel [Plavix] 75 mg PO DAILY Omeprazole 20 mg PO DAILY Cholecalciferol [Vitamin D3 (25 Mcg = 1000 Iu)] 50 mcg PO DAILY Ketoconazole 2% Cream [Nizoral 2%] 1 applic TOPICAL BID PRN PRN Reason: Rash Discontinued Levofloxacin [Levaquin] 250 mg PO DAILY No Action dexAMETHasone [Decadron] 3 mg PO BID Discharge Medication List Atorvastatin [Lipitor] 10 mg PO HS 11/20/14 [History] Timolol 0.5% Ophth Soln [Timoptic 0.5% Ophth Soln] 1 drop BOTH EYES BID 11/20/14 [History] Vit C/E/Zn/Coppr/Lutein/Zeaxan [Preservision Areds 2 Softgel] 1 tab PO BID 11/20/14 [History] Montelukast [Singulair] 10 mg PO DAILY 06/25/19 [History] Cholecalciferol [Vitamin D3 (25 Mcg = 1000 Iu)] 50 mcg PO DAILY 08/15/22 [History] Clopidogrel [Plavix] 75 mg PO DAILY 08/15/22 [History] Furosemide [Lasix] 20 mg PO BID 08/15/22 [History] Ketoconazole 2% Cream [Nizoral 2%] 1 applic TOPICAL BID PRN 08/15/22 [History] Loratadine 10 mg PO DAILY 08/15/22 [History] Losartan [Cozaar] 50 mg PO DAILY 08/15/22 [History] Metoprolol Tartrate [Lopressor] 25 mg PO DAILY 08/15/22 [History] Nystatin 100,000Unit/gm Cream [Mycostatin Cream] 1 applic TOPICAL BID PRN 08/15/22 [History] Omeprazole 20 mg PO DAILY 08/15/22 [History] Potassium Chloride ER [K-Dur 10] 10 meq PO DAILY 08/15/22 [History] dexAMETHasone [Decadron] 3 mg PO BID 08/15/22 [History] cefUROXime axetiL [Ceftin] 500 mg PO BID 7 Days #14 tab 08/18/22 [Rx] Follow up Appointment(s)/Referral(s): Yanelis Díaz MD [Primary Care Provider] - 08/22/22 2:00 pm Kris Hunter DO [Doctor of Osteopathic Medicine] - 08/31/22 2:00 pm Lucio Smith DO [Doctor of Osteopathic Medicine] - 08/30/22 2:30 pm [facility] Visiting Nurse, [NON-STAFF] - 1-2 Days Patient Instructions/Handouts: COVID-19 (Coronavirus Disease 2019) (DC) Activity/Diet/Wound Care/Special Instructions: Heart healthy diet activity is restricted till you see your doctor Discharge Disposition: HOME SELF-CARE
== END 2022-08-18 14:35 | disposition home or self-care (01) | DRG 152 ==
LOC: EC 11:56 → 4SSUR 17:07
PROVIDERS: ADMIT Hospitalist; ATTEND Hospitalist
PROC: 0CJY8ZZ Inspection of Mouth and Throat, Via Natural or Artificial Opening Endoscopic (ICD-10-PCS; principal; 2022-08-16)
DX: J00 Acute nasopharyngitis [common cold] (principal); U07.1 COVID-19; N39.0 Urinary tract infection, site not specified; I65.29 Occlusion and stenosis of unspecified carotid artery; K21.9 Gastro-esophageal reflux disease without esophagitis; K57.90 Diverticulosis of intestine, part unspecified, without perforation or abscess without bleeding; M19.90 Unspecified osteoarthritis, unspecified site; Z79.02 Long term (current) use of antithrombotics/antiplatelets; Z79.899 Other long term (current) drug therapy; Z87.440 Personal history of urinary (tract) infections; Z90.721 Acquired absence of ovaries, unilateral; Z96.652 Presence of left artificial knee joint; R01.1 Cardiac murmur, unspecified; H40.9 Unspecified glaucoma; H35.30 Unspecified macular degeneration; Z87.01 Personal history of pneumonia (recurrent); M19.072 Primary osteoarthritis, left ankle and foot; M19.071 Primary osteoarthritis, right ankle and foot; M19.032 Primary osteoarthritis, left wrist; M19.031 Primary osteoarthritis, right wrist; M19.011 Primary osteoarthritis, right shoulder; Z88.6 Allergy status to analgesic agent; Z88.0 Allergy status to penicillin
CPT/HCPCS: 36415; 70491; 71046; 80048; 80053; 81003; 83605; 83735; 84145; 84484; 85025; 86140; 87636; 87651; 93005; 94760; 96360; 99285

== ENCOUNTER 2022-08-29 13:26 | Inpatient (IN) | payer MEDICARE, BC ==
--- NOTE | 2022-08-29 14:38 | ED ---
Recheck HPI - General Source: patient, RN notes reviewed Mode of arrival: wheelchair Limitations: no limitations - History of Present Illness MD Complaint: other (Elevated BP) <Jessica Perales - Last Filed: 08/29/22 14:38> <Jef Thomason - Last Filed: 08/30/22 01:37> - General Chief Complaint: Recheck/Abnormal Lab/Rx Stated Complaint: hypertension Time Seen by Provider: 08/29/22 14:30 - History of Present Illness Initial Comments: This is an 86-year-old female who presents to the emergency department for concerns of elevated blood pressure. States that her visiting nurse came over today and checked her blood pressure. The nurse said that it was elevated and she needed to come to the emergency department. She cannot recall how high this was. She denies any headaches, chest pain, shortness of breath, or visual changes. She is taking metoprolol and losartan as prescribed. (Jessica Perales) Patient is a 86-year-old female with past medical history remarkable for hypertension, leaky heart valve, recurrent UTIs, acid reflux, mild undiagnosed dementia per family who presents in the department with her grandson over concern for elevated blood pressures. Patient denies any acute complaints including shortness of breath, abdominal pain, nausea, vomiting, diarrhea, constipation, fevers, chills, weakness, numbness. She states that for the last multiple weeks she has been having lightheadedness when standing, which has been more or less recurrent since last time she was admitted back in July 2022. Patient does have a history of hypertension but no new medication changes. Patient was at home when her home health nurse checked her blood pressure and found it was elevated which prompted them to send her in for evaluation. Denies any history of strokes. Patient does states she may be experiencing episodic confusion last week which she states "my words were jumbled" but she did not seek medical attention. Symptoms all resolved. Presents for further evaluation. Denies any falls. Has chronically weak knees.Patient's current lightheadedness is a had heavy sensation that is only present when she stands up. Results when she sits down or lays down. No known history of orthostatic hypotension. States she has not syncopized or passed out. (Jef Thomason) - Related Data Home Medications Medication Instructions Recorded Confirmed Atorvastatin [Lipitor] 10 mg PO HS 11/20/14 08/29/22 Timolol 0.5% Ophth Soln [Timoptic 1 drop BOTH EYES BID 11/20/14 08/29/22 0.5% Ophth Soln] Vit C/E/Zn/Coppr/Lutein/Zeaxan 1 cap PO BID 11/20/14 08/29/22 [Preservision Areds 2 Softgel] Montelukast [Singulair] 10 mg PO DAILY 06/25/19 08/29/22 Cholecalciferol [Vitamin D3 (25 50 mcg PO DAILY 08/15/22 08/29/22 Mcg = 1000 Iu)] Clopidogrel [Plavix] 75 mg PO DAILY 08/15/22 08/29/22 Furosemide [Lasix] 20 mg PO BID@0900,1600 08/15/22 08/29/22 Ketoconazole 2% Cream [Nizoral 2%] 1 applic TOPICAL BID PRN 08/15/22 08/29/22 Loratadine 10 mg PO DAILY 08/15/22 08/29/22 Losartan [Cozaar] 50 mg PO DAILY 08/15/22 08/29/22 Metoprolol Tartrate [Lopressor] 25 mg PO DAILY 08/15/22 08/29/22 Omeprazole 20 mg PO DAILY 08/15/22 08/29/22 Potassium Chloride ER [K-Dur 10] 10 meq PO DAILY 08/15/22 08/29/22 Allergies Allergy/AdvReac Type Severity Reaction Status Date / Time LOKESH Inhibitors Allergy Rash/Hives Verified 08/29/22 17:10 aspirin Allergy Rash/Hives Verified 08/29/22 17:10 NSAIDS (Non-Steroidal Allergy Rash/Hives Verified 08/29/22 17:10 Anti-Inflamma Sulfa (Sulfonamide Allergy Unknown Verified 08/29/22 17:10 Antibiotics) Childhood tree nut [Nut] Allergy Unknown Verified 08/29/22 17:10 Review of Systems ROS Other: All systems not noted in ROS Statement are negative. <Jessica Perales - Last Filed: 08/29/22 14:38> ROS Other: All systems not noted in ROS Statement are negative. <Jef Thomason - Last Filed: 08/30/22 01:37> ROS Statement: Those systems with pertinent positive or pertinent negative responses have been documented in the HPI. Review of Systems: CONST: Denies fever EYES: Denies blurry vision ENT: Denies nasal congestion C/V: Denies Chest pain RESP: Denies shortness of breath GI: Denies abdominal pain : Denies dysuria SKIN: Denies rash. MSK: Denies joint pain. NEURO: Denies headache (Jef Thomason) Past Medical History Past Medical History: Eye Disorder, GERD/Reflux, Hyperlipidemia, Hypertension, Osteoarthritis (OA), Pneumonia, Skin Disorder Additional Past Medical History / Comment(s): Leaky heart valve/murmur, UTI with sepsis, pneumonias, bronchitis, sinus issues, bilateral glaucoma, L eye macular degeneration, diverticular disease, arthritis bilateral feet toes, bilateral wrists and L shoulder, occasional mid back pain, past upper vertebral fracture, urticaria. History of Any Multi-Drug Resistant Organisms: None Reported Past Surgical History: Joint Replacement Additional Past Surgical History / Comment(s): L total knee arthroplasty, L hand tendon release, L oophorectomy d/t cyst, bilateral cataract removals/lens implants, L eye injection, colonoscopies Past Anesthesia/Blood Transfusion Reactions: No Reported Reaction Additional Past Anesthesia/Blood Transfusion Reaction / Comment(s): Pt has received blood in past without reaction. Past Psychological History: No Psychological Hx Reported Smoking Status: Never smoker Past Alcohol Use History: None Reported Past Drug Use History: None Reported - Past Family History Father Family Medical History: No Reported History Additional Family Medical History / Comment(s): Father lived to be 85 yrs old. Mother Family Medical History: Cancer Additional Family Medical History / Comment(s): Mother of colon cancer at the age of 71 yrs. <Jessica Perales - Last Filed: 08/29/22 14:38> General Exam Limitations: no limitations <Jessica Perales - Last Filed: 08/29/22 14:38> <Jef Thomason - Last Filed: 08/30/22 01:37> - General Exam Comments Initial Comments: Visual Physical Exam Vital signs reviewed General: Well-appearing, nontoxic, no acute distress. Head: Normocephalic, atraumatic Eyes: PERRLA, EOMI ENT: Airway patent Chest: Nonlabored breathing Skin: No visual rash, normal skin tone Neuro: Alert and oriented 3 Musculoskeletal: No gross abnormalities (Jessica Perales) General: Appears in no acute distress. HEAD: Normal with no signs of head trauma. EYES: PERRLA, EOMI, conjunctiva normal, no discharge. Pupils are 3 mm and equal bilaterally. ENT: Hearing grossly intact, normal oropharynx. RESPIRATORY: Clear breath sounds bilaterally. No wheezes, rales, or rhonchi. C/V: Regular rate and rhythm. S1 and S2 auscultated, no edema, peripheral pulses 2+ and intact throughout ABD: Abd is soft, nontender, nondistended EXT: Normal range of motion, no obvious deformity SKIN: No rashes or lesions observed on exposed skin. NEURO: Alert and oriented x 4. Cranial nerves II-XII intact. No focal sensory or strength deficits. NIH of 0. GCS of 15. Chronic bilateral lower extremity weakness which is unchanged from baseline. (Jef Thomason) Course Vital Signs 08/29/22 08/29/22 08/29/22 13:33 16:12 18:30 Temperature 97.3 F L Pulse Rate 90 78 76 Respiratory 20 18 18 Rate Blood Pressure 172/96 193/112 185/103 Blood Pressure [Right Arm Sitting] Blood Pressure [Right Arm Standing] Blood Pressure [Right Arm Supine] O2 Sat by Pulse 95 94 L 95 Oximetry 08/29/22 08/29/22 08/29/22 19:03 19:38 20:29 Temperature Pulse Rate 79 Respiratory 22 Rate Blood Pressure 163/89 Blood Pressure 205/113 [Right Arm Sitting] Blood Pressure 177/122 [Right Arm Standing] Blood Pressure 207/98 [Right Arm Supine] O2 Sat by Pulse Oximetry 08/29/22 08/29/22 08/29/22 20:30 20:40 20:50 Temperature Pulse Rate 79 78 79 Respiratory 20 19 18 Rate Blood Pressure 188/96 180/88 Blood Pressure [Right Arm Sitting] Blood Pressure [Right Arm Standing] Blood Pressure [Right Arm Supine] O2 Sat by Pulse Oximetry 08/29/22 08/29/22 08/29/22 21:00 21:10 21:20 Temperature Pulse Rate 80 79 77 Respiratory 16 22 15 Rate Blood Pressure 165/78 165/78 Blood Pressure [Right Arm Sitting] Blood Pressure [Right Arm Standing] Blood Pressure [Right Arm Supine] O2 Sat by Pulse Oximetry 08/29/22 08/29/22 08/29/22 21:30 21:40 21:50 Temperature Pulse Rate 79 77 80 Respiratory 36 H 34 H 13 Rate Blood Pressure 165/78 162/79 162/79 Blood Pressure [Right Arm Sitting] Blood Pressure [Right Arm Standing] Blood Pressure [Right Arm Supine] O2 Sat by Pulse Oximetry 08/29/22 08/29/22 08/29/22 22:00 22:10 22:20 Temperature Pulse Rate 80 77 78 Respiratory 27 H 19 14 Rate Blood Pressure 162/79 163/86 163/86 Blood Pressure [Right Arm Sitting] Blood Pressure [Right Arm Standing] Blood Pressure [Right Arm Supine] O2 Sat by Pulse Oximetry 08/29/22 08/29/22 08/29/22 22:30 22:40 22:50 Temperature Pulse Rate 79 80 80 Respiratory 26 H 10 L 20 Rate Blood Pressure 163/86 162/78 162/78 Blood Pressure [Right Arm Sitting] Blood Pressure [Right Arm Standing] Blood Pressure [Right Arm Supine] O2 Sat by Pulse 95 Oximetry 08/29/22 08/29/22 08/29/22 23:00 23:10 23:20 Temperature Pulse Rate 80 78 80 Respiratory 23 15 23 Rate Blood Pressure 162/78 165/79 165/79 Blood Pressure [Right Arm Sitting] Blood Pressure [Right Arm Standing] Blood Pressure [Right Arm Supine] O2 Sat by Pulse Oximetry 08/29/22 08/29/22 08/29/22 23:30 23:40 23:46 Temperature Pulse Rate 78 80 77 Respiratory 26 H 24 22 Rate Blood Pressure 165/79 157/77 157/77 Blood Pressure [Right Arm Sitting] Blood Pressure [Right Arm Standing] Blood Pressure [Right Arm Supine] O2 Sat by Pulse 93 L Oximetry 08/29/22 08/30/22 08/30/22 23:50 00:00 00:10 Temperature Pulse Rate 76 79 80 Respiratory 22 13 26 H Rate Blood Pressure 157/77 157/77 156/82 Blood Pressure [Right Arm Sitting] Blood Pressure [Right Arm Standing] Blood Pressure [Right Arm Supine] O2 Sat by Pulse 94 L Oximetry 08/30/22 08/30/22 08/30/22 00:20 00:30 00:40 Temperature Pulse Rate 77 75 70 Respiratory 23 23 25 H Rate Blood Pressure 156/82 156/82 158/81 Blood Pressure [Right Arm Sitting] Blood Pressure [Right Arm Standing] Blood Pressure [Right Arm Supine] O2 Sat by Pulse Oximetry 08/30/22 08/30/22 08/30/22 00:50 01:00 01:10 Temperature Pulse Rate 72 70 74 Respiratory 14 11 L 13 Rate Blood Pressure 158/81 158/81 163/75 Blood Pressure [Right Arm Sitting] Blood Pressure [Right Arm Standing] Blood Pressure [Right Arm Supine] O2 Sat by Pulse Oximetry 08/30/22 08/30/22 01:20 01:30 Temperature Pulse Rate 73 75 Respiratory 24 24 Rate Blood Pressure 163/75 163/75 Blood Pressure [Right Arm Sitting] Blood Pressure [Right Arm Standing] Blood Pressure [Right Arm Supine] O2 Sat by Pulse Oximetry Medical Decision Making - Lab Data Result diagrams: 08/29/22 17:07 08/29/22 17:07 - EKG Data -: EKG Interpreted by Me <Jef Thomason - Last Filed: 08/30/22 01:37> - Medical Decision Making Was pt. sent in by a medical professional or institution (, PA, [employer], urgent care, hospital, or snf...) When possible be specific @ -No Did you speak to anyone other than the patient for history (EMS, parent, family, police, friend...)? What history was obtained from this source @ -Patient's grandson is at bedside and aided in the history including the patient's recent forgetfulness and concern for mild undiagnosed dementia. Did you review nursing and triage notes (agree or disagree)? Why? @ -I reviewed and agree with nursing and triage notes Were old charts reviewed (outside hosp., previous admission, EMS record, old EKG, old radiological studies, urgent care reports/EKG's, snf records)? Report findings @ -Old charts from July 2021 were reviewed. Differential Diagnosis (chest pain, altered mental status, abdominal pain women, abdominal pain men, vaginal bleeding, weakness, fever, dyspnea, syncope, headache, dizziness, GI bleed, back pain, seizure, CVA, palpatations, mental health, musculoskeletal)? @ -Differential Weakness: Hypoglycemia, shock, sepsis, hyponatremia, anemia, infection, NE, ETOH, adverse medicine reaction, overdose, stroke, this is not meant to be an all-inclusive list. EKG interpreted by me (3pts min.). @ -As above X-rays interpreted by me (1pt min.). @ -Chest x-ray revealed no obvious acute cardio pulmonary process. CT interpreted by me (1pt min.). @ -CT brain revealed no acute obvious intracranial process. U/S interpreted by me (1pt. min.). @ -None done What testing was considered but not performed or refused? (CT, X-rays, U/S, labs)? Why? @ -None What meds were considered but not given or refused? Why? @ -None Did you discuss the management of the patient with other professionals (professionals i.e. , PA, [employer]ER, lab, RT, psych nurse, social service agency director, divorce lawyer, teacher, air crew officer, egg caser)? Give summary @ -No Was smoking cessation discussed for >3mins.? @ -No Was critical care preformed (if so, how long)? @ -No Were there social determinants of health that impacted care today? How? (Homelessness, low income, unemployed, alcoholism, drug addiction, transportation, low edu. Level, literacy, decrease access to med. care, [facility], rehab)? @ -No Was there de-escalation of care discussed even if they declined (Discuss DNR or withdrawal of care, Hospice)? DNR status @ -No What co-morbidities impacted this encounter? (DM, HTN, Smoking, COPD, CAD, Cancer, CVA, ARF, Chemo, Hep., AIDS, mental health diagnosis, sleep apnea, morbid obesity)? @ -Recurrent UTIs, mild dementia, hypertension Was patient admitted / discharged? Hospital course, mention meds given and route, prescriptions, significant lab abnormalities, going to OR and other pertinent info. @ -The patient's presentation and physical exam, she presents per mildly for hypertension. States it is typically within acceptable limits but was elevated today. Is currently 193/112. Has not missed any doses medications. Is relatively asymptomatic acutely, but has chronic lightheadedness for the last few weeks. Denies any changes in medications. We will obtain infectious labs, as well as cardiopulmonary labs. CT brain also be obtained. Patient was in agreement this plan. We will observe her blood pressure for a short period of time, and then administer a small dose of antihypertensive if needed. She was in agreement with this plan. Orthostatic vital signs will also be obtained. EKG shows no signs of acute ischemia.Patient's imaging is unremarkable. Laboratory studies are remarkable for mild dehydration with lactic acid of 2.1. Remainder the labs are within acceptable limits. On reevaluation, patient remains hypertensive. She will be given a small dose of IV hydralazine after we obtain orthostatic vital signs. Patient has orthostatics positive as the patient's blood pressure does drop greater than 20 points systolic when standing. I discussed results with the patient as well as family. Patient is a fall risk with poorly controlled hypertension I do want to admit her to the hospital at this time. She was in agreement this plan. Patient's blood pressure responded well to a small dose of hydralazine. Home meds were ordered. I spoke with the admitting team, LORENZO ramirez of [facility] who accepted the patient. Undiagnosed new problem with uncertain prognosis? @ -No Drug Therapy requiring intensive monitoring for toxicity (Heparin, Nitro, Insulin, Cardizem)? @ -No Were any procedures done? @ -No Diagnosis/symptom? @ -Hypertension Acute, or Chronic, or Acute on Chronic? @ -Acute on chronic Uncomplicated (without systemic symptoms) or Complicated (systemic symptoms)? @ -Uncomplicated Side effects of treatment? @ -none Exacerbation, Progression, or Severe Exacerbation] @ -no Poses a threat to life or bodily function? @ -no Diagnosis/symptom? @ -Orthostatic hypotension Acute, or Chronic, or Acute on Chronic? @ -Acute Uncomplicated (without systemic symptoms) or Complicated (systemic symptoms)? @ -Uncomplicated Side effects of treatment? @ -none Exacerbation, Progression, or Severe Exacerbation] @ -no Poses a threat to life or bodily function? @ -no (Jef Thomason) - Lab Data Lab Results 08/29/22 08/29/22 08/29/22 Range/Units 17:07 17:07 17:07 WBC 7.5 (3.8-10.6) k/uL RBC 4.80 (3.80-5.40) m/uL Hgb 14.2 (11.4-16.0) gm/dL Hct 42.0 (34.0-46.0) % MCV 87.4 (80.0-100.0) fL MCH 29.6 (25.0-35.0) pg MCHC 33.9 (31.0-37.0) g/dL RDW 15.4 (11.5-15.5) % Plt Count 221 (150-450) k/uL MPV 8.3 Neutrophils % 58 % Lymphocytes % 32 % Monocytes % 6 % Eosinophils % 0 % Basophils % 0 % Neutrophils # 4.3 (1.3-7.7) k/uL Lymphocytes # 2.4 (1.0-4.8) k/uL Monocytes # 0.5 (0-1.0) k/uL Eosinophils # 0.0 (0-0.7) k/uL Basophils # 0.0 (0-0.2) k/uL PT 9.7 (9.0-12.0) sec INR 0.9 (<1.2) APTT 23.0 (22.0-30.0) sec Sodium (137-145) mmol/L Potassium (3.5-5.1) mmol/L Chloride (98-107) mmol/L Carbon Dioxide (22-30) mmol/L Anion Gap mmol/L BUN (7-17) mg/dL Creatinine (0.52-1.04) mg/dL Est GFR (CKD-EPI)AfAm (>60 ml/min/1.73 sqM) Est GFR (CKD-EPI)NonAf (>60 ml/min/1.73 sqM) Glucose (74-99) mg/dL Lactic Ac Sepsis Rflx Plasma Lactic Acid [place] (0.7-2.0) mmol/L Calcium (8.4-10.2) mg/dL Magnesium (1.6-2.3) mg/dL Troponin I (0.000-0.034) ng/mL Urine Color Colorless Urine Appearance Clear (Clear) Urine pH 6.0 (5.0-8.0) Ur Specific [place] 1.006 (1.001-1.035) Urine Protein Negative (Negative) Urine Glucose (UA) Negative (Negative) Urine Ketones Negative (Negative) Urine Blood Negative (Negative) Urine Nitrite Negative (Negative) Urine Bilirubin Negative (Negative) Urine Urobilinogen <2.0 (<2.0) mg/dL Ur Leukocyte Esterase Negative (Negative) Influenza Type A (PCR) (Not Detectd) Influenza Type B (PCR) (Not Detectd) RSV (PCR) (Not Detectd) SARS-CoV-2 (PCR) (Not Detectd) 08/29/22 08/29/22 08/29/22 Range/Units 17:07 17:07 17:07 WBC (3.8-10.6) k/uL RBC (3.80-5.40) m/uL Hgb (11.4-16.0) gm/dL Hct (34.0-46.0) % MCV (80.0-100.0) fL MCH (25.0-35.0) pg MCHC (31.0-37.0) g/dL RDW (11.5-15.5) % Plt Count (150-450) k/uL MPV Neutrophils % % Lymphocytes % % Monocytes % % Eosinophils % % Basophils % % Neutrophils # (1.3-7.7) k/uL Lymphocytes # (1.0-4.8) k/uL Monocytes # (0-1.0) k/uL Eosinophils # (0-0.7) k/uL Basophils # (0-0.2) k/uL PT (9.0-12.0) sec INR (<1.2) APTT (22.0-30.0) sec Sodium 140 (137-145) mmol/L Potassium 3.5 (3.5-5.1) mmol/L Chloride 99 (98-107) mmol/L Carbon Dioxide 32 H (22-30) mmol/L Anion Gap 9 mmol/L BUN 13 (7-17) mg/dL Creatinine 0.68 (0.52-1.04) mg/dL Est GFR (CKD-EPI)AfAm >90 (>60 ml/min/1.73 sqM) Est GFR (CKD-EPI)NonAf 78 (>60 ml/min/1.73 sqM) Glucose 106 H (74-99) mg/dL Lactic Ac Sepsis Rflx Plasma Lactic Acid [place] 2.1 H* (0.7-2.0) mmol/L Calcium 9.6 (8.4-10.2) mg/dL Magnesium 1.9 (1.6-2.3) mg/dL Troponin I <0.012 (0.000-0.034) ng/mL Urine Color Urine Appearance (Clear) Urine pH (5.0-8.0) Ur Specific [place] (1.001-1.035) Urine Protein (Negative) Urine Glucose (UA) (Negative) Urine Ketones (Negative) Urine Blood (Negative) Urine Nitrite (Negative) Urine Bilirubin (Negative) Urine Urobilinogen (<2.0) mg/dL Ur Leukocyte Esterase (Negative) Influenza Type A (PCR) (Not Detectd) Influenza Type B (PCR) (Not Detectd) RSV (PCR) (Not Detectd) SARS-CoV-2 (PCR) (Not Detectd) 08/29/22 08/29/22 Range/Units 17:07 17:52 WBC (3.8-10.6) k/uL RBC (3.80-5.40) m/uL Hgb (11.4-16.0) gm/dL Hct (34.0-46.0) % MCV (80.0-100.0) fL MCH (25.0-35.0) pg MCHC (31.0-37.0) g/dL RDW (11.5-15.5) % Plt Count (150-450) k/uL MPV Neutrophils % % Lymphocytes % % Monocytes % % Eosinophils % % Basophils % % Neutrophils # (1.3-7.7) k/uL Lymphocytes # (1.0-4.8) k/uL Monocytes # (0-1.0) k/uL Eosinophils # (0-0.7) k/uL Basophils # (0-0.2) k/uL PT (9.0-12.0) sec INR (<1.2) APTT (22.0-30.0) sec Sodium (137-145) mmol/L Potassium (3.5-5.1) mmol/L Chloride (98-107) mmol/L Carbon Dioxide (22-30) mmol/L Anion Gap mmol/L BUN (7-17) mg/dL Creatinine (0.52-1.04) mg/dL Est GFR (CKD-EPI)AfAm (>60 ml/min/1.73 sqM) Est GFR (CKD-EPI)NonAf (>60 ml/min/1.73 sqM) Glucose (74-99) mg/dL Lactic Ac Sepsis Rflx Y Plasma Lactic Acid [place] (0.7-2.0) mmol/L Calcium (8.4-10.2) mg/dL Magnesium (1.6-2.3) mg/dL Troponin I (0.000-0.034) ng/mL Urine Color Urine Appearance (Clear) Urine pH (5.0-8.0) Ur Specific [place] (1.001-1.035) Urine Protein (Negative) Urine Glucose (UA) (Negative) Urine Ketones (Negative) Urine Blood (Negative) Urine Nitrite (Negative) Urine Bilirubin (Negative) Urine Urobilinogen (<2.0) mg/dL Ur Leukocyte Esterase (Negative) Influenza Type A (PCR) Not Detected (Not Detectd) Influenza Type B (PCR) Not Detected (Not Detectd) RSV (PCR) Not Detected (Not Detectd) SARS-CoV-2 (PCR) Not Detected (Not Detectd) - EKG Data EKG Comments: 12-lead Electrocardiogram Interpretation Note EKG was reviewed and interpreted by myself. 12-lead ECG performed at 1654 is interpreted by me as revealing normal sinus rhythm at a rate of 76 beats per minute. [place] is normal. [place] interval is 231 ms, QRS duration 76 ms, QTc is 382 ms.. There were no acute ST or T wave abnormalities to suggest myocardial ischemia or injury. R wave progression across the precordium was satisfactory. By my interpretation this EKG is non-diagnostic for acute ischemia. When compared with With EKG from 08/15/2022, no smoking change. Chronic T wave inversions in lead V2. (Jef Thomason) Disposition <Jessica Perales - Last Filed: 08/29/22 14:38> Time of Disposition: 19:10 <Jef Thomason - Last Filed: 08/30/22 01:37> Clinical Impression: Orthostatic hypotension, Hypertension Disposition: ADMITTED IP TO THIS HOSP Condition: Stable
[2022-08-29] MEDS ORDERED: SODIUM CHLORIDE 0.9% 500 ML 500 ML IV STA (16:47)
[2022-08-29 17:46] LABS: Basophils % (A) 0 %; Eosinophils % (A) 0 %; HGB 14.2 gm/dL (11.4-16.0); Lymphocytes # (A) 2.4 k/uL (1.0-4.8); Lymphocytes % (A) 32 %; MCH 29.6 pg (25.0-35.0); MCHC 33.9 g/dL (31.0-37.0); MCV 87.4 fL (80.0-100.0); Mean Platelet Volume 8.3; Monocytes # (A) 0.5 k/uL (0-1.0); Monocytes % (A) 6 %; Neutrophils # (A) 4.3 k/uL (1.3-7.7); Neutrophils % (A) 58 %; Platelet Count 221 k/uL (150-450); RDW 15.4 % (11.5-15.5); WBC 7.5 k/uL (3.8-10.6)
[2022-08-29 17:47] LABS: Appearance,Urine Clear (Clear); Bilirubin,Urine Negative (Negative); Blood,Urine Negative (Negative); Color,Urine Colorless; Glucose,Urine (UA) Negative (Negative); Ketones,Urine Negative (Negative); Leukocyte Esterase,Urine Negative (Negative); Nitrite,Urine Negative (Negative); Protein,Urine Negative (Negative); Specific Gravity,Urine 1.006 (1.001-1.035); Urobilinogen,Urine <2.0 mg/dL (<2.0)
[2022-08-29 17:49] LABS: African American GFR (CKD) >90 (>60 ml/min/1.73 sqM); Anion Gap 9 mmol/L; Blood Urea Nitrogen 13 mg/dL (7-17); Calcium 9.6 mg/dL (8.4-10.2); Carbon Dioxide 32 mmol/L (22-30); Chloride 99 mmol/L (98-107); Glucose 106 mg/dL (74-99); Magnesium 1.9 mg/dL (1.6-2.3); Non-African American GFR(CKD) 78 (>60 ml/min/1.73 sqM); Potassium 3.5 mmol/L (3.5-5.1); Sodium 140 mmol/L (137-145)
--- NOTE | 2022-08-29 17:50 | XR ---
EXAMINATION TYPE: XR chest 2V DATE OF EXAM: 08/29/2022 5:34 PM COMPARISON: Chest radiographs from 08/15/2022 TECHNIQUE: XR chest 2V Frontal and lateral views of the chest. CLINICAL INDICATION:Female, 86 years old with history of Weakness; FINDINGS: Lungs/Pleura: There is no evidence of pleural effusion, focal consolidation, or pneumothorax. Pulmonary vascularity: Unremarkable. Heart/mediastinum: Cardiomediastinal silhouette is enlarged and stable. Atherosclerotic calcificatio ns are seen in the aorta. Musculoskeletal: No acute osseous pathology. Increased kyphotic curvature with multilevel wedging of the spine. IMPRESSION: No acute cardiopulmonary disease/process.
[2022-08-29 17:51] LABS: INR 0.9 (<1.2); Prothrombin Time 9.7 sec (9.0-12.0)
--- NOTE | 2022-08-29 18:18 | CT ---
EXAMINATION TYPE: CT brain wo con CT DLP: 1099.4 mGycm, Automated exposure control for dose reduction was used. DATE OF EXAM: 08/29/2022 5:53 PM COMPARISON: 10/03/2013. CLINICAL INDICATION:Female, 86 years old with history of weakness, hypertension, sent by visiting erich TECHNIQUE: Brain: Axial CT images of the brain were obtained with coronal and sagittal reformats created and rev iewed. Contrast used: None. Oral contrast used: None. FINDINGS: Brain: Extra-axial spaces: No abnormal extra-axial fluid collections. Ventricular system: Dilatation in proportion to cerebral atrophy. Cerebral parenchyma: Cerebral atrophy. No acute intraparenchymal hemorrhage or mass effect. The alston -white junction is well differentiated. Bilateral low-density areas within the basal ganglia compatib le with remote injuries. Scattered hypoattenuating areas are seen within the white matter. Cerebellum: Unremarkable. Mass effect: No evidence of midline shift. Intracranial vasculature: Atherosclerotic calcifications of the intracranial vessels. Soft tissues: Normal. Calvarium/osseous structures: No depressed skull fracture. Paranasal sinuses and mastoid air cells: Mild scattered paranasal sinus disease. Visualized orbits: Orbital contents are intact. IMPRESSION: 1. No acute intracranial process. 2. Remote lacunar injuries along with nonspecific white matter changes likely secondary to chronic mi croangiopathy.
[2022-08-29] MEDS ORDERED: hydrALAZINE HCL 20 MG/ML 1 ML VIAL IVP STA (19:11)
[2022-08-29] MEDS ORDERED: NALOXONE 0.4 MG/ML 1 ML VIAL IV PRN (19:34)
[2022-08-29] MEDS: HEPARIN SODIUM,PORCINE/PF 5,000 UNIT/0.5 ML SYRINGE SQ SCH (21:12)
[2022-08-29] MEDS: ATORVASTATIN 10 MG TAB PO SCH (21:12)
[2022-08-29] MEDS: TIMOLOL 0.5% OPHTH DROPS 5 ML BTL BOTH EYES SCH (21:16)
[2022-08-30] MEDS: carvediloL 3.125 MG TAB PO SCH ×2 (04:41→08:39)
[2022-08-30 08:21] LABS: Basophils % (A) 0 %; Eosinophils % (A) 0 %; HCT 37.6 % (34.0-46.0); Lymphocytes # (A) 1.6 k/uL (1.0-4.8); Lymphocytes % (A) 28 %; MCH 30.2 pg (25.0-35.0); MCHC 34.5 g/dL (31.0-37.0); MCV 87.4 fL (80.0-100.0); Mean Platelet Volume 8.8; Monocytes # (A) 0.4 k/uL (0-1.0); Monocytes % (A) 7 %; Neutrophils # (A) 3.7 k/uL (1.3-7.7); Neutrophils % (A) 63 %; Platelet Count 189 k/uL (150-450); RDW 15.4 % (11.5-15.5); WBC 5.9 k/uL (3.8-10.6)
[2022-08-30] MEDS: CLOPIDOGREL 75 MG TAB PO SCH (08:37)
[2022-08-30] MEDS: PANTOPRAZOLE 40 MG TABLET PO SCH (08:37)
[2022-08-30] MEDS: MONTELUKAST 10 MG TAB PO SCH (08:37)
[2022-08-30] MEDS: POTASSIUM CHLORIDE ER 10 MEQ TAB.ER.PRT PO SCH (08:38)
[2022-08-30] MEDS: HEPARIN SODIUM,PORCINE/PF 5,000 UNIT/0.5 ML SYRINGE SQ SCH ×2 (08:38→19:38)
[2022-08-30] MEDS: LORATADINE 10 MG TAB PO SCH (08:38)
[2022-08-30] MEDS: FUROSEMIDE 20 MG TAB PO SCH ×2 (08:38→16:04)
[2022-08-30 08:41] LABS: African American GFR (CKD) >90 (>60 ml/min/1.73 sqM); Anion Gap 9 mmol/L; Blood Urea Nitrogen 14 mg/dL (7-17); Calcium 8.9 mg/dL (8.4-10.2); Carbon Dioxide 30 mmol/L (22-30); Chloride 101 mmol/L (98-107); Glucose 122 mg/dL (74-99); Non-African American GFR(CKD) 82 (>60 ml/min/1.73 sqM); Potassium 4.1 mmol/L (3.5-5.1); Sodium 140 mmol/L (137-145)
[2022-08-30] MEDS ORDERED: METOPROLOL TARTRATE 25 MG TAB PO SCH (09:00)
[2022-08-30] MEDS ORDERED: LOSARTAN 50 MG TAB PO SCH (09:00)
[2022-08-30] MEDS ORDERED: LOSARTAN 50 MG TAB PO STA (09:47)
[2022-08-30] MEDS: TIMOLOL 0.5% OPHTH DROPS 5 ML BTL BOTH EYES SCH ×2 (10:52→19:38)
--- NOTE | 2022-08-30 11:10 | P.CRDCN ---
History of Present Illness History of present illness: HISTORY OF PRESENT ILLNESS: This is a 86-year-old female with a past medical history significant for nonobstructive coronary artery disease, aortic stenosis, hypertension, and hyperlipidemia. Patient follows in the office with Dr. Vaz. We have been asked to see the patient in consultation for hypertension. Patient examined at the bedside. Patient presented to the hospital after she was evaluated by a visiting nurse and found to have elevated blood pressure. The patient reports she has been feeling lightheaded recently. She denies any episodes of syncope. She does report that she gets tired easily with exertion. She denied having any chest pain or pressure. Denied any shortness of breath. Patient's blood pressures have been elevated since admission with systolic blood pressures ranging from 150-200. Patient's blood pressure this morning 182/84. Patient is on antiplatelet therapy outpatient, reason unknown, patient thinks she may have had a TIA in the past * EKG reveals sinus mechanism with no signs of acute ischemia * Chest xray no acute cardiopulmonary process * Laboratory data: WBC 5.9. Hemoglobin 13.0. Platelet count 189. Sodium 140. Potassium 4.1. BUN 14. Creatinine 0.59. Lactic acid 2.4. Repeat 1.7. * Current home cardiac medications include Plavix 75 mg daily, Lasix 20 mg twice a day, Lipitor 10 mg at night, losartan 50 mg daily, and metoprolol tartrate 25 mg daily * Most recent echocardiogram obtained in June 2022 revealed ejection fraction 55%, mild aortic stenosis, mild MR * Cardiac catheterization history: June 2007 revealing no significant obstructive disease. 40% diagonal disease. Right dominant system. * Patient underwent Lexiscan stress test in July 2018 which was negative for ischemia REVIEW OF SYSTEMS: At the time of my exam: CONSTITUTIONAL: Denies fever or chills. HEENT: Denies blurred vision, vision changes, or eye pain. Denies hemoptysis CARDIOVASCULAR: Denies chest pain. Denies orthopnea. Denies PND. Denies palpitations RESPIRATORY: Denies shortness of breath. GASTROINTESTINAL: Denies abdominal pain. Denies nausea or vomiting. HEMATOLOGIC: Denies bleeding disorders. GENITOURINARY: Denies any blood in urine. SKIN: Denies pruitis. Denies rash. PHYSICAL EXAM: VITAL SIGNS: Reviewed. GENERAL: Well-developed in no acute distress. HEENT: Head is normocephalic. Pupils are equal, round. Sclerae anicteric. Mucous membranes of the mouth are moist. Neck supple. No JVD or thyromegaly LUNGS: Respirations even and unlabored. Lungs essentially clear to auscultation bilaterally. HEART: Regular rate and rhythm. S1 and S2 heard. Systolic murmur noted. ABDOMEN: Soft. Nondistended. Nontender. EXTREMITIES: Normal range of motion. No clubbing or cyanosis. Peripheral pulses intact. No lower extremity edema NEUROLOGIC: Awake and alert. Oriented x 3. ASSESSMENT: Hypertensive urgency Lightheadedness without syncope Nonobstructive coronary artery disease Mild aortic stenosis Hypertension Hyperlipidemia PLAN: No need to repeat echocardiogram as this was performed in the office in June 2022 Increase losartan to 100 mg daily Patient has been switched from metoprolol to carvedilol. Increase dose to 6.25 mg BID Patient states that she has been on amlodipine in the past which was discontinued secondary to lower extremity edema Continue to monitor blood pressures Further recommendations pending patient's course Nurse practitioner note has been reviewed by physician. Signing provider agrees with the documented findings, assessment, and plan of care. Past Medical History Past Medical History: Eye Disorder, GERD/Reflux, Hyperlipidemia, Hypertension, Osteoarthritis (OA), Pneumonia, Skin Disorder Additional Past Medical History / Comment(s): Leaky heart valve/murmur, UTI with sepsis, pneumonias, bronchitis, sinus issues, bilateral glaucoma, L eye macular degeneration, diverticular disease, arthritis bilateral feet toes, bilateral wrists and L shoulder, occasional mid back pain, past upper vertebral fracture, urticaria. History of Any Multi-Drug Resistant Organisms: None Reported Past Surgical History: Joint Replacement Additional Past Surgical History / Comment(s): L total knee arthroplasty, L hand tendon release, L oophorectomy d/t cyst, bilateral cataract removals/lens implants, L eye injection, colonoscopies Past Anesthesia/Blood Transfusion Reactions: No Reported Reaction Additional Past Anesthesia/Blood Transfusion Reaction / Comment(s): Pt has received blood in past without reaction. Past Psychological History: No Psychological Hx Reported Additional Psychological History / Comment(s): Pt has an adult son living with her. She uses a cane or walker to ambulate. She drives. Smoking Status: Never smoker Past Alcohol Use History: None Reported Past Drug Use History: None Reported - Past Family History Father Family Medical History: No Reported History Additional Family Medical History / Comment(s): Father lived to be 85 yrs old. Mother Family Medical History: Cancer Additional Family Medical History / Comment(s): Mother of colon cancer at the age of 71 yrs. Medications and Allergies Home Medications Medication Instructions Recorded Confirmed Type Atorvastatin [Lipitor] 10 mg PO HS 11/20/14 08/29/22 History Timolol 0.5% Ophth Soln [Timoptic 1 drop BOTH EYES BID 11/20/14 08/29/22 History 0.5% Ophth Soln] Vit C/E/Zn/Coppr/Lutein/Zeaxan 1 cap PO BID 11/20/14 08/29/22 History [Preservision Areds 2 Softgel] Montelukast [Singulair] 10 mg PO DAILY 06/25/19 08/29/22 History Cholecalciferol [Vitamin D3 (25 50 mcg PO DAILY 08/15/22 08/29/22 History Mcg = 1000 Iu)] Clopidogrel [Plavix] 75 mg PO DAILY 08/15/22 08/29/22 History Furosemide [Lasix] 20 mg PO BID@0900,1600 08/15/22 08/29/22 History Ketoconazole 2% Cream [Nizoral 2%] 1 applic TOPICAL BID PRN 08/15/22 08/29/22 History Loratadine 10 mg PO DAILY 08/15/22 08/29/22 History Losartan [Cozaar] 50 mg PO DAILY 08/15/22 08/29/22 History Metoprolol Tartrate [Lopressor] 25 mg PO DAILY 08/15/22 08/29/22 History Omeprazole 20 mg PO DAILY 08/15/22 08/29/22 History Potassium Chloride ER [K-Dur 10] 10 meq PO DAILY 08/15/22 08/29/22 History Allergies Allergy/AdvReac Type Severity Reaction Status Date / Time LOKESH Inhibitors Allergy Rash/Hives Verified 08/29/22 17:10 aspirin Allergy Rash/Hives Verified 08/29/22 17:10 NSAIDS (Non-Steroidal Allergy Rash/Hives Verified 08/29/22 17:10 Anti-Inflamma Sulfa (Sulfonamide Allergy Unknown Verified 08/29/22 17:10 Antibiotics) Childhood tree nut [Nut] Allergy Unknown Verified 08/29/22 17:10 Physical Exam Vitals: Vital Signs Temp Pulse Pulse Resp BP BP BP 08/30/22 08:51 97.5 F L 82 17 182/84 08/30/22 08:22 97.5 F L 73 16 08/30/22 06:45 70 18 153/80 08/30/22 05:09 97.5 F L 72 18 177/88 08/30/22 04:09 74 18 198/99 08/30/22 03:40 72 20 167/89 08/30/22 02:30 73 21 08/30/22 02:20 72 26 H 08/30/22 02:10 76 20 166/74 08/30/22 02:00 74 24 08/30/22 01:50 74 22 08/30/22 01:44 76 18 167/78 08/30/22 01:40 90 24 167/78 08/30/22 01:32 105 H 20 153/91 08/30/22 01:30 75 24 163/75 08/30/22 01:20 73 24 163/75 08/30/22 01:10 74 13 163/75 08/30/22 01:00 70 11 L 158/81 08/30/22 00:50 72 14 158/81 08/30/22 00:40 70 25 H 158/81 08/30/22 00:30 75 23 156/82 08/30/22 00:20 77 23 156/82 08/30/22 00:10 80 26 H 156/82 08/30/22 00:00 79 13 157/77 08/29/22 23:50 76 22 157/77 08/29/22 23:46 77 22 157/77 08/29/22 23:40 80 24 157/77 08/29/22 23:30 78 26 H 165/79 08/29/22 23:20 80 23 165/79 08/29/22 23:10 78 15 165/79 08/29/22 23:00 80 23 162/78 08/29/22 22:50 80 20 162/78 08/29/22 22:40 80 10 L 162/78 08/29/22 22:30 79 26 H 163/86 08/29/22 22:20 78 14 163/86 08/29/22 22:10 77 19 163/86 08/29/22 22:00 80 27 H 162/79 08/29/22 21:50 80 13 162/79 08/29/22 21:40 77 34 H 162/79 08/29/22 21:30 79 36 H 165/78 08/29/22 21:20 77 15 165/78 08/29/22 21:10 79 22 165/78 08/29/22 21:00 80 16 08/29/22 20:50 79 18 08/29/22 20:40 78 19 180/88 08/29/22 20:30 79 20 188/96 08/29/22 20:29 79 22 08/29/22 19:38 163/89 08/29/22 19:03 205/113 08/29/22 18:30 76 18 185/103 08/29/22 16:12 78 18 193/112 08/29/22 13:33 97.3 F L 90 20 172/96 BP BP Pulse Ox 08/30/22 08:51 97 08/30/22 08:22 182/84 98 08/30/22 06:45 93 L 08/30/22 05:09 96 08/30/22 04:09 98 08/30/22 03:40 94 L 08/30/22 02:30 93 L 08/30/22 02:20 92 L 08/30/22 02:10 93 L 08/30/22 02:00 93 L 08/30/22 01:50 93 L 08/30/22 01:44 96 08/30/22 01:40 08/30/22 01:32 93 L 08/30/22 01:30 08/30/22 01:20 08/30/22 01:10 08/30/22 01:00 08/30/22 00:50 08/30/22 00:40 08/30/22 00:30 08/30/22 00:20 08/30/22 00:10 08/30/22 00:00 08/29/22 23:50 94 L 08/29/22 23:46 93 L 08/29/22 23:40 08/29/22 23:30 08/29/22 23:20 08/29/22 23:10 08/29/22 23:00 08/29/22 22:50 08/29/22 22:40 08/29/22 22:30 95 08/29/22 22:20 08/29/22 22:10 08/29/22 22:00 08/29/22 21:50 08/29/22 21:40 08/29/22 21:30 08/29/22 21:20 08/29/22 21:10 08/29/22 21:00 08/29/22 20:50 08/29/22 20:40 08/29/22 20:30 08/29/22 20:29 08/29/22 19:38 08/29/22 19:03 177/122 207/98 08/29/22 18:30 95 08/29/22 16:12 94 L 08/29/22 13:33 95 Intake and Output 08/29/22 08/30/22 08/30/22 22:59 06:59 14:59 Intake Total 400 Balance 400 Intake: Oral 400 Other: Weight 68.492 kg Results 08/30/22 07:05 08/30/22 07:05 Cardiac Enzymes 08/29/22 Range/Units 17:07 Troponin I <0.012 (0.000-0.034) ng/mL Coagulation 08/29/22 Range/Units 17:07 PT 9.7 (9.0-12.0) sec APTT 23.0 (22.0-30.0) sec CBC 08/29/22 08/30/22 Range/Units 17:07 07:05 WBC 7.5 5.9 (3.8-10.6) k/uL RBC 4.80 4.30 (3.80-5.40) m/uL Hgb 14.2 13.0 (11.4-16.0) gm/dL Hct 42.0 37.6 (34.0-46.0) % Plt Count 221 189 (150-450) k/uL Comprehensive Metabolic Panel 08/29/22 08/30/22 Range/Units 17:07 07:05 Sodium 140 140 (137-145) mmol/L Potassium 3.5 4.1 (3.5-5.1) mmol/L Chloride 99 101 (98-107) mmol/L Carbon Dioxide 32 H 30 (22-30) mmol/L BUN 13 14 (7-17) mg/dL Creatinine 0.68 0.59 (0.52-1.04) mg/dL Glucose 106 H 122 H (74-99) mg/dL Calcium 9.6 8.9 (8.4-10.2) mg/dL Current Medications Generic Name Dose Route Start Last Admin Trade Name Tashiq PRN Reason Stop Dose Admin Atorvastatin Calcium 10 mg 08/29/22 21:00 08/29/22 21:12 Atorvastatin 10 Mg Tab PO 10 mg HS RAQUEL Administration Carvedilol 3.125 mg 08/30/22 04:34 08/30/22 08:39 Carvedilol 3.125 Mg Tab PO 3.125 mg BID-W/MEALS RAQUEL Administration Clopidogrel Bisulfate 75 mg 08/30/22 09:00 08/30/22 08:37 Clopidogrel 75 Mg Tab PO 75 mg DAILY RAQUEL Administration Furosemide 20 mg 08/30/22 09:00 08/30/22 08:38 Furosemide 20 Mg Tab PO 20 mg BID@0900,1600 RAQUEL Administration Heparin Sodium (Porcine) 5,000 unit 08/29/22 21:00 08/30/22 08:38 Heparin Sodium,Porcine/Pf 5,000 Unit/0.5 Ml Syringe SQ 5,000 unit Q12HR RAQUEL Administration Loratadine 10 mg 08/30/22 09:00 08/30/22 08:38 Loratadine 10 Mg Tab PO 10 mg DAILY RAQUEL Administration Losartan Potassium 50 mg 08/30/22 09:00 08/30/22 04:41 Losartan 50 Mg Tab PO 50 mg DAILY RAQUEL Administration Montelukast Sodium 10 mg 08/30/22 09:00 08/30/22 08:37 Montelukast 10 Mg Tab PO 10 mg DAILY RAQUEL Administration Naloxone HCl 0.2 mg 08/29/22 19:34 Naloxone 0.4 Mg/Ml 1 Ml Vial IV Q2M PRN Opioid Reversal Pantoprazole Sodium 40 mg 08/30/22 09:00 08/30/22 08:37 Pantoprazole 40 Mg Tablet PO 40 mg DAILY RAQUEL Administration Potassium Chloride 10 meq 08/30/22 09:00 08/30/22 08:38 Potassium Chloride Er 10 Meq Tab.Er.Prt PO 10 meq DAILY RAQUEL Administration Timolol Maleate 1 drops 08/29/22 21:00 08/29/22 21:16 Timolol 0.5% Ophth Drops 5 Ml Btl BOTH EYES Not Given BID RAQUEL Intake and Output 08/29/22 08/30/22 08/30/22 22:59 06:59 14:59 Intake Total 400 Balance 400 Intake: Oral 400 Other: Weight 68.492 kg Patient Weight 08/31/22 06:59 Weight 68.492 kg 08/30/22 07:05 08/30/22 07:05
[2022-08-30 14:29] VITALS: BMI 27.6
--- NOTE | 2022-08-30 15:03 | P.HPIM ---
History of Present Illness H&P Date: 08/30/22 This is a 86-year-old female who presented to the emergency department with family with increasing shortness of breath and some hypertension. Patient was being visited by home care and noted the elevated blood pressure and advised her to come to the ER for further evaluation. Patient follows with Dr. Díaz as her primary care provider in the outpatient setting with a past medical history of GERD, hyperlipidemia, hypertension, osteoarthritis, BT heart valve with murmur, bilateral glaucoma, left eye macular degeneration. Patient reports she follows with Dr. Vaz cardiology in the outpatient setting and had been working on medication adjustments in regards to her blood pressure management. Patient reports she denies any syncope or falling with passing out. Patient reports she has been lightheaded when standing although resolves. 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 Patient was admitted for hypertension on telemetry. There was no cardiology consult placed hence I consulted cardiology and appreciate input recommendations in regards to her blood pressure management. Labs revealed a WBC of 7.5, hemoglobin is 14.2, sodium 140, potassium 3.5, creatinine 0.68, magnesium 1.9, troponin negative, lactic acid was mildly elevated at 2.1 and is normal this morning. Review Of Systems: Constitutional: No fever, no chills, no night sweats. No weight change. No weakness, fatigue or lethargy. No daytime sleepiness. EENT: No headache. No blurred vision or double vision, no loss of vision. No loss of Hearing, no ringing in the ears, no dizziness. No nasal drainage or congestion. No epistaxis. No sore throat. Lungs: No shortness of breath, cough, no sputum production. No wheezing. Cardiovascular: No chest pain, no lower extremity edema. No palpitations. No paroxysmal nocturnal dyspnea. No orthopnea. Reported some mild lightheadedness with standing and position changes and denies any falling or syncopal episodes Abdominal: No abdominal pain. No nausea, vomiting. No diarrhea. No constipation. No bloody or tarry stools.. No loss of appetite. Genitourinary: No dysuria, increased frequency, urgency. No urinary retention. Musculoskeletal: No myalgias. No muscle weakness, no gait dysfunction, no frequent falls. No back pain. No neck pain. Integumentary: No wounds, no lesions. No rash or pruritus. No unusual bruising. No change in hair or nails. Neurologic: No aphasia. No facial droop. No change in mentation. No head injury. No headache. No paralysis. No paresthesia. Psychiatric: No depression. No anxiety. No mood swings. Endocrine: No abnormal blood sugars. No weight change. No excessive sweating or thirst. No cold intolerance. PHYSICAL EXAMINATION: GENERAL: The patient is alert and oriented x4, Well developed, well nourished. HEENT: Pupils are round and equally reacting to light. EOMI. no scleral icterus. No conjunctival pallor. Normocephalic, atraumatic. No pharyngeal erythema. No thyromegaly. CARDIOVASCULAR: S1 and S2 muffled PULMONARY: diminished breath sounds bilaterally with no wheezing or rhonchi noted. ABDOMEN: soft. Nontender on exam. obese. non-distended, normoactive bowel sounds. No palpable organomegaly. MUSCULOSKELETAL: No joint swelling or deformity. EXTREMITIES: No cyanosis, clubbing, or pedal edema. NEUROLOGICAL: Gross neurological examination did not reveal any focal deficits. Diffuse weakness SKIN: No rashes. Assessment: Hypertension with hypertensive urgency Lactic acidosis, present on admission, likely reactive Lightheadedness with no syncope, most likely secondary to recent blood pressure medication adjustment GERD Hyperlipidemia Osteoarthritis Bilateral glaucoma history with macular degeneration on the left GI prophylaxis DVT prophylaxis Full code Plan: Recommend to continue with current medications and management with cardiology on consult. Adjustments to medications are being done and recommend monitoring overnight. Encouraged increase activity as tolerated and continue telemetry monitoring Daughter at the bedside with questions and concerns that there were answered to the best of our ability. Family reported she had multiple outpatient specialist appointments being arranged and encourage the family to call and reschedule as patient is currently hospitalized Will follow up with cardiology in the a.m. with possible discharge in 24 hours. The impression and plan of care has been dictated by Lakeisha Anna, nurse practitioner as directed. Dr. Padmini MD I have performed a history and examination and MDM of this patient, discussed the same with the dictator, and agree with the dictator's assessment and plan as written ,documented as a scribe. Based on total visit time, I have performed more than 50% of the visit. Any additional findings or plans will be noted. Past Medical History Past Medical History: Eye Disorder, GERD/Reflux, Hyperlipidemia, Hypertension, Osteoarthritis (OA), Pneumonia, Skin Disorder Additional Past Medical History / Comment(s): Leaky heart valve/murmur, UTI with sepsis, pneumonias, bronchitis, sinus issues, bilateral glaucoma, L eye macular degeneration, diverticular disease, arthritis bilateral feet toes, bilateral wrists and L shoulder, occasional mid back pain, past upper vertebral fracture, urticaria. History of Any Multi-Drug Resistant Organisms: None Reported Past Surgical History: Joint Replacement Additional Past Surgical History / Comment(s): L total knee arthroplasty, L hand tendon release, L oophorectomy d/t cyst, bilateral cataract removals/lens implants, L eye injection, colonoscopies Past Anesthesia/Blood Transfusion Reactions: No Reported Reaction Additional Past Anesthesia/Blood Transfusion Reaction / Comment(s): Pt has re ceived blood in past without reaction. Past Psychological History: No Psychological Hx Reported Additional Psychological History / Comment(s): Pt has an adult son living with her. She uses a cane or walker to ambulate. She drives. Smoking Status: Never smoker Past Alcohol Use History: None Reported Past Drug Use History: None Reported - Past Family History Father Family Medical History: No Reported History Additional Family Medical History / Comment(s): Father lived to be 85 yrs old. Mother Family Medical History: Cancer Additional Family Medical History / Comment(s): Mother of colon cancer at the age of 71 yrs. Medications and Allergies Home Medications Medication Instructions Recorded Confirmed Type Atorvastatin [Lipitor] 10 mg PO HS 11/20/14 08/29/22 History Timolol 0.5% Ophth Soln [Timoptic 1 drop BOTH EYES BID 11/20/14 08/29/22 History 0.5% Ophth Soln] Vit C/E/Zn/Coppr/Lutein/Zeaxan 1 cap PO BID 11/20/14 08/29/22 History [Preservision Areds 2 Softgel] Montelukast [Singulair] 10 mg PO DAILY 06/25/19 08/29/22 History Cholecalciferol [Vitamin D3 (25 50 mcg PO DAILY 08/15/22 08/29/22 History Mcg = 1000 Iu)] Clopidogrel [Plavix] 75 mg PO DAILY 08/15/22 08/29/22 History Furosemide [Lasix] 20 mg PO BID@0900,1600 08/15/22 08/29/22 History Ketoconazole 2% Cream [Nizoral 2%] 1 applic TOPICAL BID PRN 08/15/22 08/29/22 History Loratadine 10 mg PO DAILY 08/15/22 08/29/22 History Losartan [Cozaar] 50 mg PO DAILY 08/15/22 08/29/22 History Metoprolol Tartrate [Lopressor] 25 mg PO DAILY 08/15/22 08/29/22 History Omeprazole 20 mg PO DAILY 08/15/22 08/29/22 History Potassium Chloride ER [K-Dur 10] 10 meq PO DAILY 08/15/22 08/29/22 History Allergies Allergy/AdvReac Type Severity Reaction Status Date / Time LOKESH Inhibitors Allergy Rash/Hives Verified 08/29/22 17:10 aspirin Allergy Rash/Hives Verified 08/29/22 17:10 NSAIDS (Non-Steroidal Allergy Rash/Hives Verified 08/29/22 17:10 Anti-Inflamma Sulfa (Sulfonamide Allergy Unknown Verified 08/29/22 17:10 Antibiotics) Childhood tree nut [Nut] Allergy Unknown Verified 08/29/22 17:10 Physical Exam Vitals: Vital Signs Temp Pulse Pulse Resp BP BP BP 08/30/22 08:51 97.5 F L 82 17 182/84 08/30/22 08:22 97.5 F L 73 16 08/30/22 06:45 70 18 153/80 08/30/22 05:09 97.5 F L 72 18 177/88 08/30/22 04:09 74 18 198/99 08/30/22 03:40 72 20 167/89 08/30/22 02:30 73 21 08/30/22 02:20 72 26 H 08/30/22 02:10 76 20 166/74 08/30/22 02:00 74 24 08/30/22 01:50 74 22 08/30/22 01:44 76 18 167/78 08/30/22 01:40 90 24 167/78 08/30/22 01:32 105 H 20 153/91 08/30/22 01:30 75 24 163/75 08/30/22 01:20 73 24 163/75 08/30/22 01:10 74 13 163/75 08/30/22 01:00 70 11 L 158/81 08/30/22 00:50 72 14 158/81 08/30/22 00:40 70 25 H 158/81 08/30/22 00:30 75 23 156/82 08/30/22 00:20 77 23 156/82 08/30/22 00:10 80 26 H 156/82 08/30/22 00:00 79 13 157/77 08/29/22 23:50 76 22 157/77 08/29/22 23:46 77 22 157/77 08/29/22 23:40 80 24 157/77 08/29/22 23:30 78 26 H 165/79 08/29/22 23:20 80 23 165/79 08/29/22 23:10 78 15 165/79 08/29/22 23:00 80 23 162/78 08/29/22 22:50 80 20 162/78 08/29/22 22:40 80 10 L 162/78 08/29/22 22:30 79 26 H 163/86 08/29/22 22:20 78 14 163/86 08/29/22 22:10 77 19 163/86 08/29/22 22:00 80 27 H 162/79 08/29/22 21:50 80 13 162/79 08/29/22 21:40 77 34 H 162/79 08/29/22 21:30 79 36 H 165/78 08/29/22 21:20 77 15 165/78 08/29/22 21:10 79 22 165/78 08/29/22 21:00 80 16 08/29/22 20:50 79 18 08/29/22 20:40 78 19 180/88 08/29/22 20:30 79 20 188/96 08/29/22 20:29 79 22 08/29/22 19:38 163/89 08/29/22 19:03 205/113 08/29/22 18:30 76 18 185/103 08/29/22 16:12 78 18 193/112 08/29/22 13:33 97.3 F L 90 20 172/96 BP BP Pulse Ox 08/30/22 08:51 97 08/30/22 08:22 182/84 98 04/04/23 06:45 93 L 08/30/22 05:09 96 08/30/22 04:09 98 08/30/22 03:40 94 L 08/30/22 02:30 93 L 08/30/22 02:20 92 L 08/30/22 02:10 93 L 08/30/22 02:00 93 L 08/30/22 01:50 93 L 08/30/22 01:44 96 08/30/22 01:40 08/30/22 01:32 93 L 08/30/22 01:30 08/30/22 01:20 08/30/22 01:10 08/30/22 01:00 08/30/22 00:50 08/30/22 00:40 08/30/22 00:30 08/30/22 00:20 08/30/22 00:10 08/30/22 00:00 08/29/22 23:50 94 L 08/29/22 23:46 93 L 08/29/22 23:40 08/29/22 23:30 08/29/22 23:20 08/29/22 23:10 08/29/22 23:00 08/29/22 22:50 08/29/22 22:40 08/29/22 22:30 95 08/29/22 22:20 08/29/22 22:10 08/29/22 22:00 08/29/22 21:50 08/29/22 21:40 08/29/22 21:30 08/29/22 21:20 08/29/22 21:10 08/29/22 21:00 08/29/22 20:50 08/29/22 20:40 08/29/22 20:30 08/29/22 20:29 08/29/22 19:38 08/29/22 19:03 177/122 207/98 08/29/22 18:30 95 08/29/22 16:12 94 L 08/29/22 13:33 95 Intake and Output 08/29/22 08/30/22 08/30/22 22:59 06:59 14:59 Intake Total 400 Balance 400 Intake: Oral 400 Other: Weight 68.492 kg Results CBC & Chem 7: 08/30/22 07:05 08/30/22 07:05 Labs: Abnormal Lab Results - Last 24 Hours (Table) 08/29/22 08/29/22 08/29/22 Range/Units 17:07 17:07 20:50 Carbon Dioxide 32 H (22-30) mmol/L Glucose 106 H (74-99) mg/dL Plasma Lactic Acid [place] 2.1 H* 2.4 H* (0.7-2.0) mmol/L 08/30/22 Range/Units 07:05 Carbon Dioxide (22-30) mmol/L Glucose 122 H (74-99) mg/dL Plasma Lactic Acid [place] (0.7-2.0) mmol/L Thrombosis Risk Factor Assmnt - DVT/VTE Prophylaxis DVT/VTE Prophylaxis: Pharmacologic Prophylaxis ordered - Choose All That Apply Each Risk Factor Represents 3 Points: Age 75 years or older Thrombosis Risk Factor Assessment Total Risk Factor Score: 3 Thrombosis Risk Factor Assessment Level: Moderate Risk Assessment and Plan Time with Patient: Greater than 30
[2022-08-30] MEDS: carvediloL 6.25 MG TAB PO SCH (16:04)
[2022-08-30] MEDS: ATORVASTATIN 10 MG TAB PO SCH (19:38)
[2022-08-31] MEDS: carvediloL 6.25 MG TAB PO SCH (06:30)
[2022-08-31] MEDS ORDERED: LOSARTAN 50 MG TAB PO SCH (09:00)
[2022-08-31] MEDS: LORATADINE 10 MG TAB PO SCH (09:11)
[2022-08-31] MEDS: MONTELUKAST 10 MG TAB PO SCH (09:11)
[2022-08-31] MEDS: PANTOPRAZOLE 40 MG TABLET PO SCH (09:11)
[2022-08-31] MEDS: HEPARIN SODIUM,PORCINE/PF 5,000 UNIT/0.5 ML SYRINGE SQ SCH (09:11)
[2022-08-31] MEDS: CLOPIDOGREL 75 MG TAB PO SCH (09:11)
[2022-08-31] MEDS: POTASSIUM CHLORIDE ER 10 MEQ TAB.ER.PRT PO SCH (09:11)
[2022-08-31] MEDS: FUROSEMIDE 20 MG TAB PO SCH (09:11)
[2022-08-31] MEDS: TIMOLOL 0.5% OPHTH DROPS 5 ML BTL BOTH EYES SCH (09:13)
--- NOTE | 2022-08-31 11:04 | P.PN ---
Subjective Progress Note Date: 08/31/22 HISTORY OF PRESENT ILLNESS: This is a 86-year-old female with a past medical history significant for nonobstructive coronary artery disease, aortic stenosis, hypertension, and hyperlipidemia. Patient follows in the office with Dr. Vaz. We have been asked to see the patient in consultation for hypertension. Patient examined at the bedside. Patient presented to the hospital after she was evaluated by a visiting nurse and found to have elevated blood pressure. The patient reports she has been feeling lightheaded recently. She denies any episodes of syncope. She does report that she gets tired easily with exertion. She denied having any chest pain or pressure. Denied any shortness of breath. Patient's blood pressures have been elevated since admission with systolic blood pressures ranging from 150-200. Patient's blood pressure this morning 182/84. Patient is on antiplatelet therapy outpatient, reason unknown, patient thinks she may have had a TIA in the past * EKG reveals sinus mechanism with no signs of acute ischemia * Chest xray no acute cardiopulmonary process * Laboratory data: WBC 5.9. Hemoglobin 13.0. Platelet count 189. Sodium 140. Potassium 4.1. BUN 14. Creatinine 0.59. Lactic acid 2.4. Repeat 1.7. * Current home cardiac medications include Plavix 75 mg daily, Lasix 20 mg twice a day, Lipitor 10 mg at night, losartan 50 mg daily, and metoprolol tartrate 25 mg daily * Most recent echocardiogram obtained in June 2022 revealed ejection fr action 55%, mild aortic stenosis, mild MR * Cardiac catheterization history: June 2007 revealing no significant obstructive disease. 40% diagonal disease. Right dominant system. * Patient underwent Lexiscan stress test in July 2018 which was negative for ischemia 08/31/2022 Patient examined this morning at the bedside. Patient denies chest pain or pressure. Denies SOB. Patients blood pressures are improved today with a SBP ranging from 120-140. PHYSICAL EXAM: VITAL SIGNS: Reviewed. GENERAL: Well-developed in no acute distress. HEENT: Head is normocephalic. Pupils are equal, round. Sclerae anicteric. Mucous membranes of the mouth are moist. Neck supple. No JVD or thyromegaly LUNGS: Respirations even and unlabored. Lungs essentially clear to auscultation bilaterally. HEART: Regular rate and rhythm. S1 and S2 heard. Systolic murmur noted. ABDOMEN: Soft. Nondistended. Nontender. EXTREMITIES: Normal range of motion. No clubbing or cyanosis. Peripheral pulses intact. No lower extremity edema NEUROLOGIC: Awake and alert. Oriented x 3. ASSESSMENT: Hypertensive urgency, improved Lightheadedness without syncope Nonobstructive coronary artery disease Mild aortic stenosis Hypertension Hyperlipidemia PLAN: No need to repeat echocardiogram as this was performed in the office in June 2022 Continue current dose of Losartan and Carvedilol Patient states that she has been on amlodipine in the past which was discontinued secondary to lower extremity edema Patient is stable for discharge home today from a cardiac standpoint She is to follow up outpatient with Dr. Vaz Nurse practitioner note has been reviewed by physician. Signing provider agrees with the documented findings, assessment, and plan of care. Objective - Vital Signs Vital signs: Vital Signs Temp 97.5 F L 08/31/22 08:16 Pulse 81 08/31/22 09:06 Resp 17 08/31/22 09:06 BP 130/70 08/31/22 08:16 Pulse Ox 94 L 08/31/22 08:47 FiO2 Intake & Output 08/30/22 08/31/22 08/31/22 18:59 06:59 18:59 Intake Total 636 0 Output Total 765 550 40 Balance -129 -550 -40 Weight 68.492 kg Intake: IV 0 Invasive Line 1 0 Oral 636 Output: Urine 765 550 40 Other: Voiding Method External Catheter External Catheter Bedside Commode External Catheter # Voids 1 1 # Bowel Movements 1 1 - Labs CBC & Chem 7: 08/30/22 07:05 08/30/22 07:05
[2022-08-31 12:05] VITALS: BP 138/89; PULSE 89; RESP 19; TEMP 98.4
--- NOTE | 2022-08-31 18:43 | P.DS ---
Providers Date of admission: 08/29/22 19:34 Expected date of discharge: 08/31/22 Attending physician: Haylie Ibrahim Consults: 08/30/22 09:23 Consult Physician Urgent Consulting Provider: Abebe Bullock Consult Reason/Comments: Hypertension, orthostatic hypotension, dizziness Do you want consulting provider notified?: Yes Primary care physician: [facility] Course: Final diagnosis Hypertension with hypertensive urgency Lactic acidosis, present on admission, likely reactive Lightheadedness with no syncope, most likely secondary to recent blood pressure medication adjustment GERD Hyperlipidemia Osteoarthritis Bilateral glaucoma history with macular degeneration on the left GI prophylaxis DVT prophylaxis Full code Discharge disposition Patient is being discharged in a stable condition with guarded prognosis to home. Patient will follow-up with Dr. Díaz in the outpatient setting upon discharge. Patient is to follow-up with cardiology outpatient as scheduled. Total time taken is greater than 35 minutes. Hospital course This is a 86-year-old female who was recently admitted with hypertension and hypertensive urgency and being closely monitored. Patient was evaluated by cardiology with adjustments being made to medications with blood pressure better improved today. Patient will continue on medications as described below with close outpatient follow-up with her associate publisher Dr. Vaz. Family concerned with patient's overall weakness and concerned about her going home. Physical therapy did evaluate the patient recommending subacute rehab for strength and mobility although patient and family refused. Patient will be discharged home today. Please refer to cardiology note for further HPI. Currently no reports of chest pain, shortness of breath, or palpitations. Patient is afebrile. No reports of nausea or vomiting and patient is tolerating diet. Patient will be discharged home. Guarded prognosis and high risk for readmission as patient is weak although refusing rehab as a recommendation Physical exam: Gen: This is a 86-year-old female who is awake, alert and oriented 2, well- developed, well-nourished, elderly-appearing HEENT: Head is atraumatic, normocephalic. Pupils equal, round. Sclerae is anicteric. NECK: Supple. No JVD. No lymphadenopathy. No thyromegaly. LUNGS: Clear to auscultation. No wheezes or rhonchi. No intercostal retractions. HEART: Regular rate and rhythm. No murmur. ABDOMEN: Soft. Bowel sounds are present. No masses. No tenderness. EXTREMITIES: No pedal edema. No calf tenderness. NEUROLOGICAL: Patient is awake, alert and oriented x2. Diffusely weak Please refer to medication reconciliation sheet for a list of medications. The impression and plan of care has been dictated by Lakeisha Anna, Nurse Practitioner as directed. Dr. Padmini MD I have performed a history and examination and MDM of this patient, discussed the same with the dictator, and agree with the dictator's assessment and plan as written ,documented as a scribe. Based on total visit time, I have performed more than 50% of the visit. Patient Condition at Discharge: Fair Plan - Discharge Summary Discharge Rx Participant: No New Discharge Prescriptions: New carvediloL [Coreg] 6.25 mg PO BID-W/MEALS 30 Days #60 tab Losartan [Cozaar] 100 mg PO DAILY 30 Days #60 tab Continue Atorvastatin [Lipitor] 10 mg PO HS Vit C/E/Zn/Coppr/Lutein/Zeaxan [Preservision Areds 2 Softgel] 1 cap PO BID Timolol 0.5% Ophth Soln [Timoptic 0.5% Ophth Soln] 1 drop BOTH EYES BID Montelukast [Singulair] 10 mg PO DAILY Potassium Chloride ER [K-Dur 10] 10 meq PO DAILY Loratadine 10 mg PO DAILY Furosemide [Lasix] 20 mg PO BID@0900,1600 Clopidogrel [Plavix] 75 mg PO DAILY Omeprazole 20 mg PO DAILY Cholecalciferol [Vitamin D3 (25 Mcg = 1000 Iu)] 50 mcg PO DAILY Ketoconazole 2% Cream [Nizoral 2%] 1 applic TOPICAL BID PRN PRN Reason: Rash Discontinued Metoprolol Tartrate [Lopressor] 25 mg PO DAILY Losartan [Cozaar] 50 mg PO DAILY Discharge Medication List Atorvastatin [Lipitor] 10 mg PO HS 11/20/14 [History] Timolol 0.5% Ophth Soln [Timoptic 0.5% Ophth Soln] 1 drop BOTH EYES BID 11/20/14 [History] Vit C/E/Zn/Coppr/Lutein/Zeaxan [Preservision Areds 2 Softgel] 1 cap PO BID 11/20/14 [History] Montelukast [Singulair] 10 mg PO DAILY 06/25/19 [History] Cholecalciferol [Vitamin D3 (25 Mcg = 1000 Iu)] 50 mcg PO DAILY 08/15/22 [History] Clopidogrel [Plavix] 75 mg PO DAILY 08/15/22 [History] Furosemide [Lasix] 20 mg PO BID@0900,1600 08/15/22 [History] Ketoconazole 2% Cream [Nizoral 2%] 1 applic TOPICAL BID PRN 08/15/22 [History] Loratadine 10 mg PO DAILY 08/15/22 [History] Omeprazole 20 mg PO DAILY 08/15/22 [History] Potassium Chloride ER [K-Dur 10] 10 meq PO DAILY 08/15/22 [History] Losartan [Cozaar] 100 mg PO DAILY 30 Days #60 tab 08/31/22 [Rx] carvediloL [Coreg] 6.25 mg PO BID-W/MEALS 30 Days #60 tab 08/31/22 [Rx] Follow up Appointment(s)/Referral(s): Katy Vaz MD [STAFF PHYSICIAN] - 09/14/22 4:00 pm Yanelis Díaz MD [Primary Care Provider] - 09/05/22 1:00 pm Patient Instructions/Handouts: Chronic Hypertension (DC) Activity/Diet/Wound Care/Special Instructions: Activity Limited until follow-up follow-up with primary care provider on discharge follow-up with cardiology outpatient follow-up with specialists as previously scheduled Continue taking medications as prescribed Discharge Disposition: HOME SELF-CARE
== END 2022-08-31 15:00 | disposition home or self-care (01) | DRG 305 ==
LOC: EC 13:26 → 3SCARD 19:34
PROVIDERS: ADMIT Hospitalist; ATTEND Hospitalist
DX: I16.0 Hypertensive urgency (principal); E87.1 Hypo-osmolality and hyponatremia; E87.20 Acidosis, unspecified; Z20.822 Contact with and (suspected) exposure to COVID-19; I10 Essential (primary) hypertension; I25.10 Atherosclerotic heart disease of native coronary artery without angina pectoris; E78.5 Hyperlipidemia, unspecified; Z88.6 Allergy status to analgesic agent; I08.2 Rheumatic disorders of both aortic and tricuspid valves; I95.1 Orthostatic hypotension; Z88.8 Allergy status to other drugs, medicaments and biological substances; E86.0 Dehydration; I44.0 Atrioventricular block, first degree; K21.9 Gastro-esophageal reflux disease without esophagitis; M19.90 Unspecified osteoarthritis, unspecified site; Z87.01 Personal history of pneumonia (recurrent); Z79.02 Long term (current) use of antithrombotics/antiplatelets; Z79.899 Other long term (current) drug therapy; Z86.73 Personal history of transient ischemic attack (TIA), and cerebral infarction without residual deficits; Z87.440 Personal history of urinary (tract) infections; Z90.721 Acquired absence of ovaries, unilateral; Z98.42 Cataract extraction status, left eye; Z98.41 Cataract extraction status, right eye; Z96.652 Presence of left artificial knee joint; Z91.81 History of falling; Z96.1 Presence of intraocular lens; Z88.2 Allergy status to sulfonamides; Z91.018 Allergy to other foods
CPT/HCPCS: 36415; 70450; 71046; 80048; 81003; 83605; 83735; 84484; 85025; 85610; 85730; 87636; 93005; 94760; 96372; 96374; 96375; 99285

== ENCOUNTER 2022-08-31 15:53 | Emergency (ER) | payer MEDICARE, BC ==
[2022-08-31] MEDS ORDERED: SODIUM CHLORIDE 0.9% 500 ML 500 ML IV STA (16:06)
--- NOTE | 2022-08-31 16:19 | ED ---
General Adult HPI - General Chief complaint: Neuro Symptoms/Deficit Stated complaint: Poss stroke Time Seen by Provider: 08/31/22 15:59 Source: patient, family, RN notes reviewed, old records reviewed Mode of arrival: wheelchair - History of Present Illness Initial comments: 86-year-old female presents for evaluation of slurred speech. Patient had an episode of slurred speech at approximately 1540. This was resolved at the time my initial evaluation. History obtained from the patient and her grandson who is at bedside. She has no pain complaints. No focal numbness or weakness. Speech is returned to normal - Related Data Home Medications Medication Instructions Recorded Confirmed Atorvastatin [Lipitor] 10 mg PO HS 11/20/14 08/31/22 Timolol 0.5% Ophth Soln [Timoptic 1 drop BOTH EYES BID 11/20/14 08/31/22 0.5% Ophth Soln] Vit C/E/Zn/Coppr/Lutein/Zeaxan 1 cap PO BID 11/20/14 08/31/22 [Preservision Areds 2 Softgel] Montelukast [Singulair] 10 mg PO DAILY 06/25/19 08/31/22 Cholecalciferol [Vitamin D3 (25 50 mcg PO DAILY 08/15/22 08/31/22 Mcg = 1000 Iu)] Clopidogrel [Plavix] 75 mg PO DAILY 08/15/22 08/31/22 Furosemide [Lasix] 20 mg PO BID@0900,1600 08/15/22 08/31/22 Ketoconazole 2% Cream [Nizoral 2%] 1 applic TOPICAL BID PRN 08/15/22 08/31/22 Loratadine 10 mg PO DAILY 08/15/22 08/31/22 Omeprazole 20 mg PO DAILY 08/15/22 08/31/22 Potassium Chloride ER [K-Dur 10] 10 meq PO DAILY 08/15/22 08/31/22 Previous Rx's Medication Instructions Recorded Losartan [Cozaar] 100 mg PO DAILY 30 Days #60 tab 08/31/22 carvediloL [Coreg] 6.25 mg PO BID-W/MEALS 30 Days #60 08/31/22 tab Allergies Allergy/AdvReac Type Severity Reaction Status Date / Time LOKESH Inhibitors Allergy Rash/Hives Verified 08/31/22 16:32 aspirin Allergy Rash/Hives Verified 08/31/22 16:32 NSAIDS (Non-Steroidal Allergy Rash/Hives Verified 08/31/22 16:32 Anti-Inflamma Sulfa (Sulfonamide Allergy Unknown Verified 08/31/22 16:32 Antibiotics) Childhood tree nut [Nut] Allergy Unknown Verified 08/31/22 16:32 Review of Systems ROS Statement: Those systems with pertinent positive or pertinent negative responses have been documented in the HPI. ROS Other: All systems not noted in ROS Statement are negative. Past Medical History Past Medical History: Eye Disorder, GERD/Reflux, Hyperlipidemia, Hypertension, Osteoarthritis (OA), Pneumonia, Skin Disorder Additional Past Medical History / Comment(s): Leaky heart valve/murmur, UTI with sepsis, pneumonias, bronchitis, sinus issues, bilateral glaucoma, L eye macular degeneration, diverticular disease, arthritis bilateral feet toes, bilateral wrists and L shoulder, occasional mid back pain, past upper vertebral fracture, urticaria. History of Any Multi-Drug Resistant Organisms: None Reported Past Surgical History: Joint Replacement Additional Past Surgical History / Comment(s): L total knee arthroplasty, L hand tendon release, L oophorectomy d/t cyst, bilateral cataract removals/lens implants, L eye injection, colonoscopies Past Anesthesia/Blood Transfusion Reactions: No Reported Reaction Additional Past Anesthesia/Blood Transfusion Reaction / Comment(s): Pt has received blood in past without reaction. Past Psychological History: No Psychological Hx Reported Smoking Status: Never smoker Past Alcohol Use History: None Reported Past Drug Use History: None Reported - Past Family History Father Family Medical History: No Reported History Additional Family Medical History / Comment(s): Father lived to be 85 yrs old. Mother Family Medical History: Cancer Additional Family Medical History / Comment(s): Mother of colon cancer at the age of 71 yrs. General Exam General appearance: alert, in no apparent distress Head exam: Present: atraumatic, normocephalic Eye exam: Present: normal appearance, PERRL ENT exam: Present: normal exam Neck exam: Present: normal inspection. Absent: tenderness, meningismus Respiratory exam: Present: normal lung sounds bilaterally. Absent: respiratory distress, wheezes Cardiovascular Exam: Present: regular rate, normal rhythm GI/Abdominal exam: Present: soft. Absent: distended, tenderness, guarding Extremities exam: Present: normal inspection, normal capillary refill. Absent: pedal edema Neurological exam: Present: alert, oriented X3, CN II-XII intact, other (Speech is clear no facial droop, no limb weakness, NIH is 0). Absent: motor sensory deficit Psychiatric exam: Present: normal affect, normal mood Skin exam: Present: warm, dry, intact. Absent: cyanosis, diaphoretic Course Vital Signs 08/31/22 08/31/22 15:53 17:06 Temperature 99.2 F 100.7 F H Pulse Rate 94 91 Respiratory 16 18 Rate Blood Pressure 177/90 151/83 O2 Sat by Pulse 96 Oximetry - Reevaluation(s) Reevaluation #1: 08/31/22 16:11 NIH of 0, symptoms resolved Reevaluation #2: 08/31/22 19:20 I did reevaluate the patient on multiple occasions. Her speech is clear she has 5 out of 5 strength in all 4 extremities. Reevaluation #3: 08/31/22 19:57 Myself and case management did have lengthy discussions with the patient and family regarding rehab versus home care. The patient is adamant that she wants to go home. She is alert and oriented and able to make her own decisions. EKG Findings - EKG Comments: EKG Findings:: EKG: Sinus rhythm rate of 94, VA interval 196, QRS duration 93, QTC [address] segment elevation. - EKG Results: EKG: interpreted by [facility] Medical Decision Making - Medical Decision Making Was pt. sent in by a medical professional or institution (Dr. PA, TECHNICAL CABLE JOINTER, urgent care, hospital, or usp...) When possible be specific @ -[No] Did you speak to anyone other than the patient for history (EMS, parent, family, police, friend...)? What history was obtained from this source @ -[No] Did you review nursing and triage notes (agree or disagree)? Why? @ -[I reviewed and agree with nursing and triage notes] Were old charts reviewed (outside hosp., previous admission, EMS record, old EKG, old radiological studies, urgent care reports/EKG's, usp records)? Report findings @ -[No old charts were reviewed] Differential Diagnosis (chest pain, altered mental status, abdominal pain women, abdominal pain men, vaginal bleeding, weakness, fever, dyspnea, syncope, headache, dizziness, GI bleed, back pain, seizure, CVA, palpatations, mental health, musculoskeletal)? @ -Differential CVA Ischemic stroke, hemorrhagic stroke, brain tumor, atypical migraine, Wernicke's encephalopathy, seizure, multiple sclerosis, meningitis, encephalitis, hypoglycemia, Guillain-Varma, electrolytes disturbance, myasthenia gravis.... This is not meant to be an all-inclusive list EKG interpreted by me (3pts min.). @ -[As above] X-rays interpreted by me (1pt min.). @ -[Chest x-ray negative for acute cardiopulmonary findings. ] CT interpreted by me (1pt min.). @ -[CT showing chronic ischemic changes] U/S interpreted by me (1pt. min.). @ -[None done] What testing was considered but not performed or refused? (CT, X-rays, U/S, labs)? Why? @ -[None] What meds were considered but not given or refused? Why? @ -[None] Did you discuss the management of the patient with other professionals (professionals i.e. , PA, TECHNICAL CABLE JOINTER, lab, RT, psych nurse, licensed clinical social worker, level vial curvature gauger, teacher, chemistry technical officer, rn case manager hospice)? Give summary @ -[Case discussed with Hannah arias for [facility], she did indicate that the patient had been offered rehabilitation but had declined.] Was smoking cessation discussed for >3mins.? @ -[No] Was critical care preformed (if so, how long)? @ -[No] Were there social determinants of health that impacted care today? How? (Homelessness, low income, unemployed, alcoholism, drug addiction, transportation, low edu. Level, literacy, decrease access to med. care, residential, rehab)? @ -[No] Was there de-escalation of care discussed even if they declined (Discuss DNR or withdrawal of care, Hospice)? DNR status @ -[No] What co-morbidities impacted this encounter? (DM, HTN, Smoking, COPD, CAD, Cancer, CVA, ARF, Chemo, Hep., AIDS, mental health diagnosis, sleep apnea, morbid obesity)? @ -[None] Was patient admitted / discharged? Hospital course, mention meds given and route, prescriptions, significant lab abnormalities, going to OR and other pertinent info. @ -[86-year-old female with likely TIA. Episode of slurred speech. Resolved prior to arrival. Head CT shows chronic changes without acute findings. Normal CBC, normal CMP. We did discuss at length the possibility of admission versus discharge. The patient does not want to be admitted she wants to go home. She is alert and oriented and able to make her own decisions. Family is agreeable with this plan.] Undiagnosed new problem with uncertain prognosis? @ -[No] Drug Therapy requiring intensive monitoring for toxicity (Heparin, Nitro, Insulin, Cardizem)? @ -[No] Were any procedures done? @ -[No] Diagnosis/symptom? @ -[TIA Acute, or Chronic, or Acute on Chronic? @ -[Acute] Uncomplicated (without systemic symptoms) or Complicated (systemic symptoms)? @ -[Complicated] Side effects of treatment? @ -[No] Exacerbation, Progression, or Severe Exacerbation? @ -[No] Poses a threat to life or bodily function? How? (Chest pain, [place], [place], pneumonia, PE, COPD, DKA, ARF, appy, cholecystitis, CVA, Diverticulitis, Homicidal, Suicidal, threat to staff... and all critical care pts) @ -[Yes, CVA, hemiplegia, permanent neurological deficit.] - Lab Data Result diagrams: 08/31/22 16:06 08/31/22 16:06 Lab Results 08/31/22 08/31/22 08/31/22 Range/Units 16:06 16:06 16:06 WBC 10.7 H (3.8-10.6) k/uL RBC 4.65 (3.80-5.40) m/uL Hgb 13.5 (11.4-16.0) gm/dL Hct 40.1 (34.0-46.0) % MCV 86.2 (80.0-100.0) fL MCH 29.1 (25.0-35.0) pg MCHC 33.7 (31.0-37.0) g/dL RDW 15.3 (11.5-15.5) % Plt Count 259 (150-450) k/uL MPV 8.0 Neutrophils % 76 % Lymphocytes % 17 % Monocytes % 5 % Eosinophils % 0 % Basophils % 0 % Neutrophils # 8.1 H (1.3-7.7) k/uL Lymphocytes # 1.8 (1.0-4.8) k/uL Monocytes # 0.6 (0-1.0) k/uL Eosinophils # 0.0 (0-0.7) k/uL Basophils # 0.0 (0-0.2) k/uL PT 10.0 (9.0-12.0) sec INR 0.9 (<1.2) APTT 24.5 (22.0-30.0) sec Sodium 134 L (137-145) mmol/L Potassium 4.6 (3.5-5.1) mmol/L Chloride 96 L (98-107) mmol/L Carbon Dioxide 26 (22-30) mmol/L Anion Gap 12 mmol/L BUN 19 H (7-17) mg/dL Creatinine 0.74 (0.52-1.04) mg/dL Est GFR (CKD-EPI)AfAm 84 (>60 ml/min/1.73 sqM) Est GFR (CKD-EPI)NonAf 73 (>60 ml/min/1.73 sqM) Glucose 146 H (74-99) mg/dL Calcium 10.0 (8.4-10.2) mg/dL Total Bilirubin 1.5 H (0.2-1.3) mg/dL AST 31 (14-36) U/L ALT 19 (4-34) U/L Alkaline Phosphatase 187 H (38-126) U/L Creatine Kinase 25 L (30-135) U/L Troponin I (0.000-0.034) ng/mL Total Protein 7.4 (6.3-8.2) g/dL Albumin 4.3 (3.5-5.0) g/dL 08/31/22 Range/Units 16:06 WBC (3.8-10.6) k/uL RBC (3.80-5.40) m/uL Hgb (11.4-16.0) gm/dL Hct (34.0-46.0) % MCV (80.0-100.0) fL MCH (25.0-35.0) pg MCHC (31.0-37.0) g/dL RDW (11.5-15.5) % Plt Count (150-450) k/uL MPV Neutrophils % % Lymphocytes % % Monocytes % % Eosinophils % % Basophils % % Neutrophils # (1.3-7.7) k/uL Lymphocytes # (1.0-4.8) k/uL Monocytes # (0-1.0) k/uL Eosinophils # (0-0.7) k/uL Basophils # (0-0.2) k/uL PT (9.0-12.0) sec INR (<1.2) APTT (22.0-30.0) sec Sodium (137-145) mmol/L Potassium (3.5-5.1) mmol/L Chloride (98-107) mmol/L Carbon Dioxide (22-30) mmol/L Anion Gap mmol/L BUN (7-17) mg/dL Creatinine (0.52-1.04) mg/dL Est GFR (CKD-EPI)AfAm (>60 ml/min/1.73 sqM) Est GFR (CKD-EPI)NonAf (>60 ml/min/1.73 sqM) Glucose (74-99) mg/dL Calcium (8.4-10.2) mg/dL Total Bilirubin (0.2-1.3) mg/dL AST (14-36) U/L ALT (4-34) U/L Alkaline Phosphatase (38-126) U/L Creatine Kinase (30-135) U/L Troponin I <0.012 (0.000-0.034) ng/mL Total Protein (6.3-8.2) g/dL Albumin (3.5-5.0) g/dL Critical Care Time Critical Care Time: Yes Total Critical Care Time: 35 Disposition Clinical Impression: Transient cerebral ischemia Disposition: HOME SELF-CARE Condition: Fair Instructions (If sedation given, give patient instructions): Transient Ischemic Attack (ED) Is patient prescribed a controlled substance at d/c from ED?: No Referrals: Yanelis Díaz MD [Primary Care Provider] - 1-2 days [facility] Visiting Nurse, [NON-STAFF] - 1-2 days Forms: [facility], Assisted Living Facilities, Community Resources, Help In The Home Time of Disposition: 20:01
--- NOTE | 2022-08-31 16:40 | CT ---
EXAMINATION TYPE: CT brain wo con CT DLP: 1096.4 mGycm, Automated exposure control for dose reduction was used. DATE OF EXAM: 08/31/2022 4:32 PM COMPARISON: Prior CT Brain from 08/29/2022 CLINICAL INDICATION:Female, 86 years old with history of Neuro deficit, acute, stroke suspected, weak ness TECHNIQUE: Brain: Axial CT images of the brain were obtained with coronal and sagittal reformats created and rev iewed. Contrast used: None. Oral contrast used: None. FINDINGS: Brain: Extra-axial spaces: No abnormal extra-axial fluid collections. Ventricular system: Within normal limits Cerebral parenchyma: Bilateral basal ganglia and thalami hypodense areas. No acute intraparenchymal h emorrhage or mass effect. The alston-white junction is well differentiated. Scattered hypoattenuating areas are seen within the white matter. Cerebellum: Unremarkable. Mass effect: No evidence of midline shift. Intracranial vasculature: Atherosclerotic calcifications of the intracranial vessels. Soft tissues: Normal. Calvarium/osseous structures: No depressed skull fracture. Paranasal sinuses and mastoid air cells: Mild scattered paranasal sinus disease most pronounced in th e maxillary sinuses. Visualized orbits: Orbital contents are intact. IMPRESSION: 1. No acute intracranial process. 2. Remote lacunar injuries along with nonspecific white matter changes likely secondary to chronic mi croangiopathy.
--- NOTE | 2022-08-31 17:09 | XR ---
EXAMINATION TYPE: XR chest 2V DATE OF EXAM: 08/31/2022 4:39 PM COMPARISON: Chest radiographs from 08/29/2022 TECHNIQUE: XR chest 2V Frontal and lateral views of the chest. CLINICAL INDICATION:Female, 86 years old with history of altered mental status; FINDINGS: Lungs/Pleura: There is no evidence of pleural effusion, focal consolidation, or pneumothorax. Pulmonary vascularity: Unremarkable. Heart/mediastinum: Cardiomediastinal silhouette is unremarkable. Musculoskeletal: No acute osseous pathology. IMPRESSION: Chronic changes without acute pulmonary process. No significant change from prior.
[2022-08-31] MEDS ORDERED: ACETAMINOPHEN TAB 325 MG TAB PO STA (18:04)
[2022-08-31 18:10] LABS: Basophils % (A) 0 %; Eosinophils % (A) 0 %; HCT 40.1 % (34.0-46.0); HGB 13.5 gm/dL (11.4-16.0); Lymphocytes # (A) 1.8 k/uL (1.0-4.8); Lymphocytes % (A) 17 %; MCH 29.1 pg (25.0-35.0); MCHC 33.7 g/dL (31.0-37.0); MCV 86.2 fL (80.0-100.0); Monocytes # (A) 0.6 k/uL (0-1.0); Monocytes % (A) 5 %; Neutrophils # (A) 8.1 k/uL (1.3-7.7); Neutrophils % (A) 76 %; Platelet Count 259 k/uL (150-450); RBC 4.65 m/uL (3.80-5.40); RDW 15.3 % (11.5-15.5); WBC 10.7 k/uL (3.8-10.6)
[2022-08-31 18:20] LABS: Total Bilirubin 1.5 mg/dL (0.2-1.3)
[2022-08-31 18:25] LABS: Albumin 4.3 g/dL (3.5-5.0); Potassium 4.6 mmol/L (3.5-5.1); Total Protein 7.4 g/dL (6.3-8.2)
[2022-08-31 18:41] LABS: INR 0.9 (<1.2); Partial Thromboplastin Time 24.5 sec (22.0-30.0)
[2022-08-31 20:14] LABS: Appearance,Urine Cloudy (Clear); Bacteria,Urine Rare /hpf; Bilirubin,Urine Negative (Negative); Blood,Urine Trace (Negative); Color,Urine Light Yellow; Glucose,Urine (UA) Negative (Negative); Ketones,Urine Negative (Negative); Leukocyte Esterase,Urine Negative (Negative); Nitrite,Urine Negative (Negative); Protein,Urine Negative (Negative); RBC,Urine <1 /hpf (0-5); Specific Gravity,Urine 1.005 (1.001-1.035); Squamous Epithelial Cell,Urine 11 /hpf (0-4); Urobilinogen,Urine <2.0 mg/dL (<2.0); WBC,Urine <1 /hpf (0-5)
[2022-08-31 20:42] VITALS: BP 162/82; PULSE 84; RESP 20; TEMP 99.3
== END 2022-08-31 21:00 | disposition home or self-care (01) ==
LOC: EC 15:53
DX: G45.9 Transient cerebral ischemic attack, unspecified (principal); I10 Essential (primary) hypertension; E78.5 Hyperlipidemia, unspecified; K21.9 Gastro-esophageal reflux disease without esophagitis; Z79.02 Long term (current) use of antithrombotics/antiplatelets; Z79.899 Other long term (current) drug therapy; Z88.2 Allergy status to sulfonamides; Z88.6 Allergy status to analgesic agent; Z88.8 Allergy status to other drugs, medicaments and biological substances; Z91.018 Allergy to other foods
CPT/HCPCS: 36415; 70450; 71046; 80053; 81001; 82550; 84484; 85025; 85610; 85730; 93005; 96360; 99291

== ENCOUNTER → 2022-11-09 | Outpatient (CLI) | payer MEDICARE, BC ==
--- NOTE | 2022-11-09 10:47 | CT ---
EXAMINATION TYPE: CT sinus wo con DATE OF EXAM: 11/09/2022 COMPARISON: None HISTORY: Chronic maxillary sinusitis. CT DLP: 591.[address] of the paranasal sinuses was performed in the axial and coronal planes. Bone and soft tissue settings are submitted. The paranasal sinuses demonstrate normal aeration and development. The paranasal sinuses are free of mucosal thickening or air fluid level. The osteal meatal units are patent bilaterally. The nasal septum is midline. No bony destructive changes are seen within the field of view. IMPRESSION: Normal unenhanced CT of the paranasal sinuses.
== END | disposition home or self-care (01) ==
LOC: RADCTMAIN 09:31
PROVIDERS: ATTEND Otolaryngology
DX: J32.0 Chronic maxillary sinusitis (principal)
CPT/HCPCS: 70486

== ENCOUNTER → 2022-11-19 | Outpatient (CLI) | payer MEDICARE, BC ==
[2022-11-19 23:09] LABS: Blood Urea Nitrogen 31.6 mg/dL (9.0-27.0); Calcium 9.3 mg/dL (8.7-10.3); Carbon Dioxide 27.2 mmol/L (21.6-31.8); Chloride 87 mmol/L (96-109); Glucose 159 mg/dL (70-110); Potassium 3.3 mmol/L (3.5-5.5); Sodium 131 mmol/L (135-145)
== END | disposition home or self-care (01) ==
LOC: LABWHC1 09:36
PROVIDERS: ATTEND Nurse Practitioner
DX: I10 Essential (primary) hypertension (principal)
CPT/HCPCS: 36415; 80048

== ENCOUNTER 2022-11-20 00:08 | Emergency (ER) | payer MEDICARE, BC ==
[2022-11-20 00:16] VITALS: RESP 18
[2022-11-20] MEDS ORDERED: SODIUM CHLORIDE 0.9% 500 ML 500 ML IV STA (00:26)
--- NOTE | 2022-11-20 00:58 | ED ---
General Adult HPI - General Chief complaint: Weakness Stated complaint: Dizziness Time Seen by Provider: 11/20/22 00:21 Source: patient, EMS Mode of arrival: EMS Limitations: no limitations - History of Present Illness Initial comments: 78-year-old female presenting with chief complaint of dizziness. Patient states that this evening when she was trying to have a bowel movement she started feeling dizzy. At this time she reports that the dizziness has resolved. She denies any chest pain or difficulty breathing. No palpitations, numbness, tingling. She does state that she has some mild lower extremity swelling. No loss of consciousness. No fever, chills, nausea, vomiting, cough, congestion, sore throat. - Related Data Home Medications Medication Instructions Recorded Confirmed Atorvastatin [Lipitor] 10 mg PO HS 11/20/14 08/31/22 Timolol 0.5% Ophth Soln [Timoptic 1 drop BOTH EYES BID 11/20/14 08/31/22 0.5% Ophth Soln] Vit C/E/Zn/Coppr/Lutein/Zeaxan 1 cap PO BID 11/20/14 08/31/22 [Preservision Areds 2 Softgel] Montelukast [Singulair] 10 mg PO DAILY 06/25/19 08/31/22 Cholecalciferol [Vitamin D3 (25 50 mcg PO DAILY 08/15/22 08/31/22 Mcg = 1000 Iu)] Clopidogrel [Plavix] 75 mg PO DAILY 08/15/22 08/31/22 Furosemide [Lasix] 20 mg PO BID@0900,1600 08/15/22 08/31/22 Ketoconazole 2% Cream [Nizoral 2%] 1 applic TOPICAL BID PRN 08/15/22 08/31/22 Loratadine 10 mg PO DAILY 08/15/22 08/31/22 Omeprazole 20 mg PO DAILY 08/15/22 08/31/22 Potassium Chloride ER [K-Dur 10] 10 meq PO DAILY 08/15/22 08/31/22 Previous Rx's Medication Instructions Recorded Losartan [Cozaar] 100 mg PO DAILY 30 Days #60 tab 08/31/22 carvediloL [Coreg] 6.25 mg PO BID-W/MEALS 30 Days #60 08/31/22 tab Cephalexin [Keflex] 500 mg PO Q12HR 7 Days #14 cap 11/20/22 Allergies Allergy/AdvReac Type Severity Reaction Status Date / Time LOKESH Inhibitors Allergy Rash/Hives Verified 11/20/22 00:16 aspirin Allergy Rash/Hives Verified 11/20/22 00:16 NSAIDS (Non-Steroidal Allergy Rash/Hives Verified 11/20/22 00:16 Anti-Inflamma Sulfa (Sulfonamide Allergy Unknown Verified 11/20/22 00:16 Antibiotics) Childhood tree nut [Nut] Allergy Unknown Verified 11/20/22 00:16 Review of Systems ROS Statement: Those systems with pertinent positive or pertinent negative responses have been documented in the HPI. ROS Other: All systems not noted in ROS Statement are negative. Past Medical History Past Medical History: Heart Failure, Eye Disorder, GERD/Reflux, Hyperlipidemia, Hypertension, Osteoarthritis (OA), Pneumonia, Skin Disorder Additional Past Medical History / Comment(s): Leaky heart valve/murmur, UTI with sepsis, pneumonias, bronchitis, sinus issues, bilateral glaucoma, L eye macular degeneration, diverticular disease, arthritis bilateral feet toes, bilateral wrists and L shoulder, occasional mid back pain, past upper vertebral fracture, urticaria. History of Any Multi-Drug Resistant Organisms: None Reported Past Surgical History: Joint Replacement Additional Past Surgical History / Comment(s): L total knee arthroplasty, L hand tendon release, L oophorectomy d/t cyst, bilateral cataract removals/lens implants, L eye injection, colonoscopies Past Anesthesia/Blood Transfusion Reactions: No Reported Reaction Additional Past Anesthesia/Blood Transfusion Reaction / Comment(s): Pt has received blood in past without reaction. Past Psychological History: No Psychological Hx Reported Smoking Status: Never smoker Past Alcohol Use History: None Reported Past Drug Use History: None Reported - Past Family History Father Family Medical History: No Reported History Additional Family Medical History / Comment(s): Father lived to be 85 yrs old. Mother Family Medical History: Cancer Additional Family Medical History / Comment(s): Mother of colon cancer at the age of 71 yrs. General Exam Limitations: no limitations General appearance: alert, in no apparent distress Head exam: Present: atraumatic, normocephalic, normal inspection Eye exam: Present: normal appearance, PERRL, EOMI. Absent: scleral icterus, conjunctival injection, periorbital swelling Neck exam: Present: normal inspection, full ROM Respiratory exam: Present: normal lung sounds bilaterally. Absent: respiratory distress, wheezes, rales, rhonchi, stridor Cardiovascular Exam: Present: regular rate, normal rhythm, normal heart sounds. Absent: systolic murmur, diastolic murmur, rubs, gallop, clicks Neurological exam: Present: alert, oriented X3, CN II-XII intact Expanded Eye Response: (4) open spontaneously Motor Response: (6) obeys commands Verbal Response: (5) oriented Jocelynn Total: 15 Psychiatric exam: Present: normal affect, normal mood Skin exam: Present: warm, dry, intact, normal color. Absent: rash Course Vital Signs 11/20/22 11/20/22 11/20/22 00:11 01:15 02:00 Temperature 97.0 F L Pulse Rate 73 70 72 Respiratory 18 18 18 Rate Blood Pressure 143/70 143/75 128/60 O2 Sat by Pulse 96 Oximetry 11/20/22 11/20/22 03:00 04:07 Temperature 97.2 F L 97.2 F L Pulse Rate 70 73 Respiratory 18 18 Rate Blood Pressure 134/72 130/68 O2 Sat by Pulse 98 98 Oximetry EKG Findings - EKG Comments: EKG Findings:: Sinus rhythm with first-degree AV block. Ventricular rate 71. MI interval 242. QRS 81. QT 390. QTC 413. Medical Decision Making - Medical Decision Making Was pt. sent in by a medical professional or institution ([facility], [facility], urgent care, hospital, or long-term...) When possible be specific @ -No Did you speak to anyone other than the patient for history (EMS, parent, family, police, friend...)? What history was obtained from this source @ -No Did you review nursing and triage notes (agree or disagree)? Why? @ -I reviewed and agree with nursing and triage notes Were old charts reviewed (outside hosp., previous admission, EMS record, old EKG, old radiological studies, urgent care reports/EKG's, long-term records)? Report findings @ -No old charts were reviewed Differential Diagnosis (chest pain, altered mental status, abdominal pain women, abdominal pain men, vaginal bleeding, weakness, fever, dyspnea, syncope, headache, dizziness, GI bleed, back pain, seizure, CVA, palpatations, mental health, musculoskeletal)? @ -MDM Differential Dizziness: Benign paroxysmal positional Vertigo, Menieres disease, otitis media, acoust ic neuroma, vertebrobasilar insufficiency, cerebellar stroke, encephalitis, hypovolemic, arrhythmia, coronary artery syndrome, anemia this is not meant to be an all-inclusive list EKG interpreted by me (3pts min.). @ -As above X-rays interpreted by me (1pt min.). @ -Chest x-ray shows no acute process CT interpreted by me (1pt min.). @ -None done U/S interpreted by me (1pt. min.). @ -None done What testing was considered but not performed or refused? (CT, X-rays, U/S, labs)? Why? @ -None What meds were considered but not given or refused? Why? @ -None Did you discuss the management of the patient with other professionals (professionals i.e. , PA, [employer]ER, lab, RT, psych nurse, elementary school social worker, sulfonation equipment operator, teacher, intelligence support officer, casework manager)? Give summary @ -No Was smoking cessation discussed for >3mins.? @ -No Was critical care preformed (if so, how long)? @ -No Were there social determinants of health that impacted care today? How? (Homelessness, low income, unemployed, alcoholism, drug addiction, transportation, low edu. Level, literacy, decrease access to med. care, residential, rehab)? @ -No Was there de-escalation of care discussed even if they declined (Discuss DNR or withdrawal of care, Hospice)? DNR status @ -No What co-morbidities impacted this encounter? (DM, HTN, Smoking, COPD, CAD, Cancer, CVA, ARF, Chemo, Hep., AIDS, mental health diagnosis, sleep apnea, morbid obesity)? @ -None Was patient admitted / discharged? Hospital course, mention meds given and route, prescriptions, significant lab abnormalities, going to OR and other pertinent info. @ -86-year-old female presenting with chief complaint of dizziness. Patient started feeling dizzy while trying to have a bowel movement this evening. At this time she feels well. Physical examination is unremarkable, no focal neurol ogical deficits. Urine shows evidence of UTI. Negative chest x-ray. Patient continues to feel well on reassessment. Dizziness was likely due to vagal maneuver when trying to have a bowel movement earlier. She'll be treated for UTI and urine is sent for culture. Follow-up with PCP. Report back to ER with any new or worsening symptoms. Discussed return parameters and answered all questions. Patient conveyed verbal understanding and agreed to the plan. I discussed this case in detail with my attending Dr. Jimenez Undiagnosed new problem with uncertain prognosis? @ -No Drug Therapy requiring intensive monitoring for toxicity (Heparin, Nitro, Insulin, Cardizem)? @ -No Were any procedures done? @ -No Diagnosis/symptom? @ -UTI Acute, or Chronic, or Acute on Chronic? @ -Acute Uncomplicated (without systemic symptoms) or Complicated (systemic symptoms)? @ -Uncomplicated Side effects of treatment? @ -No Exacerbation, Progression, or Severe Exacerbation? @ -No Poses a threat to life or bodily function? How? (Chest pain, USA, MS, pneumonia, PE, COPD, DKA, ARF, appy, cholecystitis, CVA, Diverticulitis, Homicidal, Suicidal, threat to staff... and all critical care pts) @ -Low likelihood - Lab Data Result diagrams: 11/20/22 00:41 11/20/22 00:41 Lab Results 11/20/22 11/20/22 11/20/22 Range/Units 00:41 00:41 00:41 WBC 10.0 (3.8-10.6) k/uL RBC 4.36 (3.80-5.40) m/uL Hgb 13.0 (11.4-16.0) gm/dL Hct 38.0 (34.0-46.0) % MCV 87.0 (80.0-100.0) fL MCH 29.7 (25.0-35.0) pg MCHC 34.2 (31.0-37.0) g/dL RDW 14.5 (11.5-15.5) % Plt Count 230 (150-450) k/uL MPV 8.9 Neutrophils % 67 % Lymphocytes % 23 % Monocytes % 8 % Eosinophils % 0 % Basophils % 0 % Neutrophils # 6.7 (1.3-7.7) k/uL Lymphocytes # 2.3 (1.0-4.8) k/uL Monocytes # 0.8 (0-1.0) k/uL Eosinophils # 0.0 (0-0.7) k/uL Basophils # 0.0 (0-0.2) k/uL PT 10.6 (9.0-12.0) sec INR 1.0 (<1.2) Sodium 130 L (137-145) mmol/L Potassium 3.5 (3.5-5.1) mmol/L Chloride 88 L (98-107) mmol/L Carbon Dioxide 32 H (22-30) mmol/L Anion Gap 10 mmol/L BUN 46 H (7-17) mg/dL Creatinine 0.86 (0.52-1.04) mg/dL Est GFR (CKD-EPI)AfAm 70 (>60 ml/min/1.73 sqM) Est GFR (CKD-EPI)NonAf 61 (>60 ml/min/1.73 sqM) Glucose 144 H (74-99) mg/dL Lactic Ac Sepsis Rflx Plasma Lactic Acid [place] (0.7-2.0) mmol/L Calcium 9.0 (8.4-10.2) mg/dL Total Bilirubin 0.9 (0.2-1.3) mg/dL AST 40 H (14-36) U/L ALT 16 (4-34) U/L Alkaline Phosphatase 168 H (38-126) U/L Total Protein 6.9 (6.3-8.2) g/dL Albumin 4.0 (3.5-5.0) g/dL Urine Color Urine Appearance (Clear) Urine pH (5.0-8.0) Ur Specific [place] (1.001-1.035) Urine Protein (Negative) Urine Glucose (UA) (Negative) Urine Ketones (Negative) Urine Blood (Negative) Urine Nitrite (Negative) Urine Bilirubin (Negative) Urine Urobilinogen (<2.0) mg/dL Ur Leukocyte Esterase (Negative) Urine RBC (0-5) /hpf Urine WBC (0-5) /hpf Urine WBC Clumps (None) /hpf Ur Squamous Epith Cells (0-4) /hpf Urine Bacteria (None) /hpf Hyaline Casts (0-2) /lpf Urine Mucus (None) /hpf 11/20/22 11/20/22 11/20/22 Range/Units 00:41 02:38 02:45 WBC (3.8-10.6) k/uL RBC (3.80-5.40) m/uL Hgb (11.4-16.0) gm/dL Hct (34.0-46.0) % MCV (80.0-100.0) fL MCH (25.0-35.0) pg MCHC (31.0-37.0) g/dL RDW (11.5-15.5) % Plt Count (150-450) k/uL MPV Neutrophils % % Lymphocytes % % Monocytes % % Eosinophils % % Basophils % % Neutrophils # (1.3-7.7) k/uL Lymphocytes # (1.0-4.8) k/uL Monocytes # (0-1.0) k/uL Eosinophils # (0-0.7) k/uL Basophils # (0-0.2) k/uL PT (9.0-12.0) sec INR (<1.2) Sodium (137-145) mmol/L Potassium (3.5-5.1) mmol/L Chloride (98-107) mmol/L Carbon Dioxide (22-30) mmol/L Anion Gap mmol/L BUN (7-17) mg/dL Creatinine (0.52-1.04) mg/dL Est GFR (CKD-EPI)AfAm (>60 ml/min/1.73 sqM) Est GFR (CKD-EPI)NonAf (>60 ml/min/1.73 sqM) Glucose (74-99) mg/dL Lactic Ac Sepsis Rflx Y Plasma Lactic Acid [place] 2.2 H* (0.7-2.0) mmol/L Calcium (8.4-10.2) mg/dL Total Bilirubin (0.2-1.3) mg/dL AST (14-36) U/L ALT (4-34) U/L Alkaline Phosphatase (38-126) U/L Total Protein (6.3-8.2) g/dL Albumin (3.5-5.0) g/dL Urine Color Light Yellow Urine Appearance Cloudy H (Clear) Urine pH 5.0 (5.0-8.0) Ur Specific [place] 1.008 (1.001-1.035) Urine Protein Negative (Negative) Urine Glucose (UA) Negative (Negative) Urine Ketones Negative (Negative) Urine Blood Negative (Negative) Urine Nitrite Negative (Negative) Urine Bilirubin Negative (Negative) Urine Urobilinogen <2.0 (<2.0) mg/dL Ur Leukocyte Esterase Moderate H (Negative) Urine RBC <1 (0-5) /hpf Urine WBC 51 H (0-5) /hpf Urine WBC Clumps Occasional H (None) /hpf Ur Squamous Epith Cells 3 (0-4) /hpf Urine Bacteria Occasional H (None) /hpf Hyaline Casts 8 H (0-2) /lpf Urine Mucus Rare H (None) /hpf Disposition Clinical Impression: Vasovagal episode, UTI (urinary tract infection) Disposition: HOME SELF-CARE Condition: Good Instructions (If sedation given, give patient instructions): Urinary Tract Infection in Women (ED), Lightheadedness (ED) Additional Instructions: Follow-up with PCP. Report back to ER with any new or worsening symptoms. Take medication as prescribed. Prescriptions: Cephalexin [Keflex] 500 mg PO Q12HR 7 Days #14 cap Is patient prescribed a controlled substance at d/c from ED?: No Referrals: Yanelis Díaz MD [Primary Care Provider] - 1-2 days Time of Disposition: 03:49
--- NOTE | 2022-11-20 01:13 | XR ---
EXAM: XR Chest, 2 Views CLINICAL HISTORY: ITS.REASON XR Reason: weakness TECHNIQUE: Frontal and lateral views of the chest. COMPARISON: 10/04/2022. FINDINGS: Lungs: Minimal scarring at the left midlung. No consolidative changes or pleural effusions. Pleural space: See above. Heart: Cardiomegaly. Mediastinum: Unremarkable. Bones/joints: Osteopenia appeared. 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 Vasculature: Atherosclerotic disease. Other findings: Hypoaeration. IMPRESSION: 1. Hypoaeration. 2. Cardiomegaly. 3. Atherosclerotic disease. 4. Kyphosis. 5. Osteopenia.
[2022-11-20 01:15] LABS: Basophils % (A) 0 %; Eosinophils % (A) 0 %; Lymphocytes # (A) 2.3 k/uL (1.0-4.8); Lymphocytes % (A) 23 %; MCH 29.7 pg (25.0-35.0); MCHC 34.2 g/dL (31.0-37.0); Mean Platelet Volume 8.9; Monocytes # (A) 0.8 k/uL (0-1.0); Monocytes % (A) 8 %; Neutrophils # (A) 6.7 k/uL (1.3-7.7); Neutrophils % (A) 67 %; Platelet Count 230 k/uL (150-450); RBC 4.36 m/uL (3.80-5.40); RDW 14.5 % (11.5-15.5)
[2022-11-20 01:37] LABS: ALT 16 U/L (4-34); AST 40 U/L (14-36); African American GFR (CKD) 70 (>60 ml/min/1.73 sqM); Alkaline Phosphatase 168 U/L (38-126); Anion Gap 10 mmol/L; Blood Urea Nitrogen 46 mg/dL (7-17); Carbon Dioxide 32 mmol/L (22-30); Chloride 88 mmol/L (98-107); Glucose 144 mg/dL (74-99); Non-African American GFR(CKD) 61 (>60 ml/min/1.73 sqM); Sodium 130 mmol/L (137-145); Total Bilirubin 0.9 mg/dL (0.2-1.3); Total Protein 6.9 g/dL (6.3-8.2)
[2022-11-20 01:38] LABS: Potassium 3.5 mmol/L (3.5-5.1)
[2022-11-20 01:45] LABS: Prothrombin Time 10.6 sec (9.0-12.0)
[2022-11-20 03:09] LABS: Appearance,Urine Cloudy (Clear); Bacteria,Urine Occasional /hpf; Bilirubin,Urine Negative (Negative); Blood,Urine Negative (Negative); Color,Urine Light Yellow; Glucose,Urine (UA) Negative (Negative); Hyaline Casts,Urine 8 /lpf (0-2); Ketones,Urine Negative (Negative); Leukocyte Esterase,Urine Moderate (Negative); Mucus,Urine Rare /hpf; Nitrite,Urine Negative (Negative); Protein,Urine Negative (Negative); RBC,Urine <1 /hpf (0-5); Specific Gravity,Urine 1.008 (1.001-1.035); Squamous Epithelial Cell,Urine 3 /hpf (0-4); Urobilinogen,Urine <2.0 mg/dL (<2.0); WBC,Urine 51 /hpf (0-5)
[2022-11-20 04:02] VITALS: TEMP 97.2
[2022-11-20 04:08] VITALS: BP 130/68; PULSE 73
== END 2022-11-20 04:11 | disposition home or self-care (01) ==
LOC: EC 00:08
DX: N39.0 Urinary tract infection, site not specified (principal); R55 Syncope and collapse; I11.0 Hypertensive heart disease with heart failure; I50.9 Heart failure, unspecified; E78.5 Hyperlipidemia, unspecified; K21.9 Gastro-esophageal reflux disease without esophagitis; Z79.02 Long term (current) use of antithrombotics/antiplatelets; Z79.899 Other long term (current) drug therapy; Z88.2 Allergy status to sulfonamides; Z88.6 Allergy status to analgesic agent; Z88.8 Allergy status to other drugs, medicaments and biological substances; Z91.018 Allergy to other foods
CPT/HCPCS: 36415; 71046; 80053; 81001; 83605; 85025; 85610; 87086; 93005; 96360; 96361; 99285

== ENCOUNTER → 2022-11-30 | Outpatient (CLI) | payer MEDICARE, BC ==
[2022-12-01 02:22] LABS: Blood Urea Nitrogen 22.5 mg/dL (9.0-27.0); Calcium 9.5 mg/dL (8.7-10.3); Carbon Dioxide 29.6 mmol/L (21.6-31.8); Chloride 98 mmol/L (96-109); Glucose 136 mg/dL (70-110); Potassium 3.8 mmol/L (3.5-5.5); Sodium 143 mmol/L (135-145)
== END | disposition home or self-care (01) ==
LOC: LABWHC1 15:20
PROVIDERS: ATTEND Nurse Practitioner
DX: I10 Essential (primary) hypertension (principal)
CPT/HCPCS: 36415; 80048